=== PATIENT | male | born 1935 | race Caucasian/White ===

== ENCOUNTER 2016-12-24 05:10 | Day surgery (SDC) | payer MEDICARE, OTHER ==
[2016-12-06 10:28] LABS: HEMATOCRIT 33.2 % (37.9-51.0); HEMOGLOBIN 11.5 g/dL (13.5-17.0); HGB HCT DIFFERENCE 1.3; MEAN CORPUSCULAR HEMOGLOBIN 34.7 pg (27.0-33.4); MEAN CORPUSCULAR HGB CONC 34.5 g/dL (32.0-36.0); MEAN CORPUSCULAR VOLUME 101 fl (80-97); WHITE BLOOD COUNT 9.9 10^3/uL (4.0-10.5)
[2016-12-06 10:54] LABS: BLOOD UREA NITROGEN 79 mg/dL (7-20); CALCIUM 7.8 mg/dL (8.4-10.2); CHLORIDE 99 mmol/L (98-107); CREATININE RESULT 9.76 mg/dL (0.52-1.25); GLUCOSE 82 mg/dL (75-110); POTASSIUM 4.5 mmol/L (3.6-5.0)
[2016-12-06 11:06] LABS: CARBON DIOXIDE 21 mmol/L (22-30)
[2016-12-06 11:07] LABS: ANION GAP 23 (5-19)
--- NOTE | 2016-12-06 11:59 | EKG REPORT ---
SEVERITY:- ABNORMAL ECG - SINUS RHYTHM NONSPECIFIC IVCD WITH LAD INFERIOR INFARCT, OLD ANTERIOR INFARCT, AGE INDETERMINATE : Confirmed by: Ramona José 06-Dec-2016 11:58:29
[~2016-12-24 05:10] MED LIST: ACETAMINOPHEN 325 MG TABLET PO PRN; CEFAZOLIN 1 GM/D5W RTU 1 GM/50 ML RTUPB IV PRN; CEFAZOLIN SODIUM 1 GM in DEXTROSE 5%-WATER 50 ML IV PRN; LIDOCAINE 0.5% INJ-PF (5 MG/ML) 50 ML SDV SUBCUT PRN; NORMAL SALINE 1000 ML (RENAL PATIENTS) IV PRN
[2016-12-24] MEDS ORDERED: CEFAZOLIN INJ 1 GM VIAL ONE (05:30)
[2016-12-24 06:09] LABS: POTASSIUM 4.7 mmol/L (3.6-5.0)
[2016-12-24] MEDS ORDERED: BUPIVACAINE HCL 0.25 % INJ/PF (2.5 MG/1 ML) 30 ML VIAL ONE (06:27)
[2016-12-24] MEDS ORDERED: PROPOFOL INJ 200 MG/20 ML VIAL IV ONE (06:54)
[2016-12-24] MEDS ORDERED: MIDAZOLAM 2 MG/2 ML INJ ONE (06:54)
[2016-12-24] MEDS ORDERED: FENTANYL CITRATE INJ/PF 100 MCG/2 ML AMPUL ONE (06:54)
[2016-12-24] MEDS ORDERED: EPHEDRINE SULFATE INJ 50 MG/1 ML AMPULE ONE (06:54)
[2016-12-24] MEDS ORDERED: MEPERIDINE HCL/PF INJ 25 MG/1 ML DISP.SYRIN IV PRN (08:00)
[2016-12-24] MEDS ORDERED: PROMETHAZINE HCL INJ 25 MG/1 ML VIAL IV PRN ×2 (08:00)
[2016-12-24] MEDS ORDERED: ONDANSETRON HCL INJ/PF 4 MG/2 ML SDV IV PRN ×2 (08:00→09:31)
[2016-12-24] MEDS ORDERED: MORPHINE SULFATE 10 MG/ML INJ IV PRN (08:00)
[2016-12-24] MEDS ORDERED: FENTANYL CITRATE INJ/PF 100 MCG/2 ML AMPUL IV PRN ×3 (08:00)
[2016-12-24] MEDS ORDERED: DIPHENHYDRAMINE HCL 50 MG/ML VIAL IV PRN (08:00)
[2016-12-24] MEDS ORDERED: OXYCODONE-ACETAMINOPHEN 5-325 MG TABLET PO PRN ×3 (08:00→09:31)
--- NOTE | 2016-12-24 09:30 | Operative Report ---
Operative Report DATE OF SURGERY: 12/24/16 PREOPERATIVE DIAGNOSIS: Right Inguinal hernia POSTOPERATIVE DIAGNOSIS: Right inguinal hernia OPERATION: Right inguinal hernia repair with mesh SURGEON: CESIA JENKINS ANESTHESIA: GA TISSUE REMOVED OR ALTERED: Hernia sac and cord lipoma COMPLICATIONS: None ESTIMATED BLOOD LOSS: minimal INTRAOPERATIVE FINDINGS: Right indirect inguinal hernia PROCEDURE: Informed consent was obtained. Patient was brought to the operating room and placed on the operating room table in the supine position. After satisfactory induction of general anesthesia patient's right groin was prepped and draped in usual sterile fashion. A transverse right groin incision was made and dissection was carried down thru the subcutaneous tissue and the external oblique was opened along its fascial fibers thus opening the external inguinal ring. The cord was mobilized at the pubic tubercle. Dissection at the anterior aspect of the cord revealed an indirect inguinal hernia sac. The hernia sac was dissected to the level of the internal ring. It was opened to ensure there were no incarcerated contents. High ligation of the sac was then performed and the sac was excised. There was an associated cord lipoma which was also taken by clamping dividing and tying. Great care was taken to avoid injury to the cord structures. The ilioinguinal nerve and iliohypogastric nerves were identified and preserved during the dissection. Mesh repair was then performed with Covidien Pro teacher mesh which was the laid with sling ends brought back together in a sling-like configuration thus re-creating the internal inguinal ring and allowing the egress of the cord structures. The mesh laid flat with excellent coverage. a single fixation suture was placed at the pubic tubercle. Hemostasis appeared excellent. Marcaine was injected at the operative site. External oblique was closed over the repair and the cord structures using running Vicryl suture. Nelda's fascia was closed with interrupted Vicryl sutures. Skin was closed with subcuticular running Monocryl suture. Patient tolerated procedure well with no apparent complications and was taken to the recovery area in stable condition.
[2016-12-24] MEDS ORDERED: RINGERS SOLUTION,LACTATED 1,000 ML IV PRN (09:31)
--- NOTE | 2016-12-24 09:50 | PDOC DISCHARGE SUMMARY ---
Discharge Summary (SDC) - Discharge Final Diagnosis: Right inguinal hernia Date of Surgery: 12/24/16 Discharge Date: 12/24/16 Condition: Good Forms: ASU Anesthesia D/C Instruction, Discharge POC-Surgical Service Treatment or Instructions: Right inguinal hernia repair with mesh. May discharge patient home when met discharge criteria. Stay active at home but avoid strenuous activity. May shower in 2 days. Keep Steri-Strips on. Follow-up with me in 2 weeks. Prescriptions: Oxycodone HCl/Acetaminophen [Percocet 7.5-325 Mg Tablet] 1 each PO Q4HP PRN #30 tablet PRN Reason: For Pain Referrals: CESIA JENKINS MD [ACTIVE STAFF] - Discharge Diet: As Tolerated Discharge Activity: Activity As Tolerated - Stay active but avoid strenuous activity. Report the Following to Your Physician Immediately: Fever over 101 Degrees, Unusual Bleeding, Redness, Drainage-Foul Smelling
[2016-12-24] MEDS ORDERED: SUCCINYLCHOLINE CHLORIDE INJ 200 MG/10 ML VIAL ONE (10:23)
[2016-12-24] MEDS ORDERED: METOCLOPRAMIDE HCL INJ/PF 10 MG/2 ML SDV ONE (10:23)
[2016-12-24] MEDS ORDERED: DEXAMETHASONE SOD PHOSPHATE INJ 4 MG/1 ML VIAL ONE (10:23)
[2016-12-24] MEDS ORDERED: LIDOCAINE 2% INJ-PF (20 MG/ML) 10 ML AMPUL ONE (10:23)
[2016-12-24] MEDS ORDERED: GLYCOPYRROLATE INJ 0.4 MG/2 ML VIAL ONE (10:23)
[2016-12-24] MEDS ORDERED: ONDANSETRON HCL INJ/PF 4 MG/2 ML SDV ONE (10:23)
[2016-12-24 11:21] VITALS: BP 141/68
== END 2016-12-24 11:05 | disposition home or self-care (01) ==
LOC: OROUT 05:10
PROVIDERS: ATTEND Surgery
PROC: 0YU50JZ Supplement Right Inguinal Region with Synthetic Substitute, Open Approach (ICD-10-PCS; principal; 2016-12-24 07:30)
DX: K40.90 Unilateral inguinal hernia, without obstruction or gangrene, not specified as recurrent (principal); D17.6 Benign lipomatous neoplasm of spermatic cord; E11.9 Type 2 diabetes mellitus without complications; I12.0 Hypertensive chronic kidney disease with stage 5 chronic kidney disease or end stage renal disease; Z96.653 Presence of artificial knee joint, bilateral; K21.9 Gastro-esophageal reflux disease without esophagitis; I25.2 Old myocardial infarction; Z95.1 Presence of aortocoronary bypass graft; Z79.899 Other long term (current) drug therapy
CPT/HCPCS: 93005; 36415 ×2; 82947; 84132; 85027; 80048; 88304 ×2; 93010; 49505; C1781; J2250; J0690; J1100; J3010; J2765; J0330; J2405; J2704; J3490; 830

== ENCOUNTER 2017-08-22 08:19 | Day surgery (SDC) | payer MEDICARE, OTHER ==
[2017-08-22 09:02] LABS: ABSOLUTE BASOPHILS # (AUTO) 0.1 10^3/uL (0.0-0.2); ABSOLUTE EOSINOPHILS # (AUTO) 0.4 10^3/uL (0.0-0.6); ABSOLUTE LYMPHOCYTES (AUTO) 2.1 10^3/uL (0.5-4.7); ABSOLUTE MONOCYTES (AUTO) 1.3 10^3/uL (0.1-1.4); ABSOLUTE NEUT (AUTO) 5.1 10^3/uL (1.7-8.2); BASOPHILS % (AUTO) 0.7 % (0-2); EOSINOPHILS % (AUTO) 4.1 % (0-6); HEMATOCRIT 32.7 % (37.9-51.0); HEMOGLOBIN 11.3 g/dL (13.5-17.0); HGB HCT DIFFERENCE 1.2; LYMPHOCYTES % (AUTO) 23.5 % (13-45); MEAN CORPUSCULAR HEMOGLOBIN 35.6 pg (27.0-33.4); MEAN CORPUSCULAR HGB CONC 34.5 g/dL (32.0-36.0); MEAN CORPUSCULAR VOLUME 103 fl (80-97); MONOCYTES % (AUTO) 14.8 % (3-13); RED BLOOD COUNT 3.18 10^6/uL (4.35-5.55); RED CELL DISTRIBUTION WIDTH 14.6 % (11.5-14.0); SEGMENTED NEUTROPHILS % (AUTO) 56.9 % (42-78)
[2017-08-22] MEDS ORDERED: OXYCODONE-ACETAMINOPHEN 5-325 MG TABLET ONE (09:08)
[2017-08-22] MEDS ORDERED: DIAZEPAM 5 MG TABLET ONE (09:08)
[2017-08-22 09:19] LABS: ANION GAP 15 (5-19); BLOOD UREA NITROGEN 55 mg/dL (7-20); CALCIUM 8.8 mg/dL (8.4-10.2); CARBON DIOXIDE 26 mmol/L (22-30); CHLORIDE 103 mmol/L (98-107); CREATININE RESULT 7.56 mg/dL (0.52-1.25); GLUCOSE 99 mg/dL (75-110); POTASSIUM 4.4 mmol/L (3.6-5.0); SODIUM 143.9 mmol/L (137-145)
[2017-08-22] MEDS ORDERED: MIDAZOLAM 2 MG/2 ML INJ ONE (10:21)
[2017-08-22] MEDS ORDERED: FENTANYL CITRATE INJ/PF 100 MCG/2 ML AMPUL ONE (10:21)
[2017-08-22] MEDS ORDERED: HEPARIN SOD (PORCINE) 5,000 UNIT/ML 1 ML SYRINGE ONE (10:21)
[2017-08-22] MEDS ORDERED: LIDOCAINE 0.5% INJ-PF (5 MG/ML) 50 ML SDV ONE (10:22)
--- NOTE | 2017-08-22 10:27 | PDOC H&P ---
General Chief Complaint: The patient was referred across for decreased and decreasing flow volumes in his right arm arteriovenous fistula. Radiocephalic. - Diagnosis (1) Dialysis AV fistula malfunction Is this a Current Diagnosis?: Yes (2) Diabetes mellitus type 2 in nonobese Is this a Current Diagnosis?: Yes (3) Hypertension Is this a Current Diagnosis?: Yes - Current Medications/Allergies Home Medications: Atorvastatin Calcium 1 tab PO QHS 02/02/16 Finasteride [Proscar 5 mg Tablet] 5 mg PO DAILY 02/02/16 Allergies/Adverse Reactions: No Known Allergies Allergy (Verified 09/27/16 09:25) Past Medical History Cardiac Medical History: Reports: Coronary Artery Disease, Myocardial Infarction - 1992, Hyperlipidema, Hypertension Pulmonary Medical History: Denies: Asthma, Bronchitis, Chronic Obstructive Pulmonary Disease (COPD), Pneumonia Neurological Medical History: Denies: Seizures Renal/ Medical History: Reports: End Stage Renal Disease Musculoskeltal Medical History: Denies: Arthritis Psychiatric Medical History: Denies: Depression Hematology: Denies: Anemia Past Surgical History Past Surgical History: Reports: Orthopedic Surgery - bilateral knees Family History Family History: Reviewed & Not Pertinent Parental Family History Reviewed: No Children Family History Reviewed: No Sibling(s) Family History Reviewed.: No Social History Smoking Status: Former Smoker Frequency of Alcohol Use: None Hx Recreational Drug Use: No Hx Prescription Drug Abuse: No Physical Exam Vital Signs: Temp Pulse Resp BP Pulse Ox 98.3 F 66 20 164/74 H 98 08/22/17 08:54 08/22/17 08:54 08/22/17 08:54 08/22/17 08:54 08/22/17 08:54 Intake & Output 08/21/17 08/22/17 08/23/17 06:59 06:59 06:59 Weight 70.5 kg Additional comments: Constitutional: Well-developed well-nourished gentleman. No apparent acute distress. Eyes: Mucous membranes pink and moist, pupils equal and reactive to light. Conjunctiva normal. Cornea normal. ENT: Hearing grossly normal. External pinna normal to inspection. Teeth intact. Tongue normal to inspection. Cardiac: Heart sounds 1 and 2 normal, no murmurs. Respiratory breath sounds are present bilaterally, normal. Normal respiratory effort. Psychiatric: Judgment, memory, insight seem normal. Mood is pleasant and appropriate. Extremities: Upper extremities show normal range of movement. Pulses present noted to the radial arteries. Capillary refill normal. No cyanosis noted. No muscle wasting noted. Right forearm radiocephalic fistula noted. Probably area of stenosis noted about 4 cm from the anastomosis. Relatively hyper pulsatile proximal to this. L Impression/Plan Plan: The plan is for angiogram to be done and possible angioplasty. The goal is long -term maintenance of this patient's hemodialysis fistula. Procedure, its risks, benefits, expected outcome and alternatives are familiar to the patient. He wishes to proceed.
--- NOTE | 2017-08-22 12:09 | PDOC DISCHARGE SUMMARY ---
Discharge Summary (SDC) - Discharge Final Diagnosis: #1 malfunctioning arteriovenous fistula right radiocephalic. 2. End-stage renal disease on hemodialysis. 3. Coronary artery disease. 4. Diabetes mellitus type 2. 5. Hypertension. Date of Surgery: 08/22/17 Discharge Date: 08/22/17 Condition: Fair Treatment or Instructions: Discharge home [after recovery per ASU criteria]. Diet , [renal],as tolerated, when fully awake advance as tolerated. Activities within moderation encouraged. Follow up in my office by appointment in about 1 month. Call for appointment. Leave wounds [covered], [keep clean and dry, until hemodialysis]., ]. May shower [in 48 hrs], [try to keep operated area as dry as possibleUntil then] . Referrals: CHERRY HENRY MD [ACTIVE STAFF] - Discharge Diet: Other (Comments) - ADA Respiratory Treatments at Home: Deep Breathing/Coughing Discharge Activity: Activity As Tolerated Report the Following to Your Physician Immediately: Shortness of Breath, Unusual Bleeding
--- NOTE | 2017-08-22 12:14 | Operative Report ---
Operative Report DATE OF SURGERY: 08/22/17 PREOPERATIVE DIAGNOSIS: #1 malfunctioning arteriovenous fistula. 2. End-stage renal disease on hemodialysis. 3. Diabetes mellitus type 2. 4. Peripheral vascular disease. 5. Hypertension. POSTOPERATIVE DIAGNOSIS: #1 malfunctioning arteriovenous fistula. Post angioplasty. 2. End-stage renal disease on hemodialysis. 3. Diabetes mellitus type 2. 4. Peripheral vascular disease. 5. Hypertension. OPERATION: 1. Needle introduction regarding the arteriovenous fistula. 2. Angioplasty in arteriovenous fistula. 3. Angiogram and interpretation. SURGEON: CHERRY HYLTON RADIOLOGIST PHYSICIAN: None ANESTHESIA: Moderate Sedation TISSUE REMOVED OR ALTERED: Not applicable COMPLICATIONS: None ESTIMATED BLOOD LOSS: 2 mL. INTRAOPERATIVE FINDINGS: Of a short segment stenosis at the distal portion of the arteriovenous anastomosis estimated to be 40% of movement. Of multiple areas of stenosis between about 2-6 cm. Maximum rate 80% of the adjacent lumen. These lesions were resolved completely with angioplasty. In addition of the chitina radial artery distally was dilated slightly. Overall the flow in the fistula seem improved postprocedure with a more pulsatile mid segment. The outflow seems excellent with no problems at least up to the upper cephalic. PROCEDURE: PROCEDURE: After verifying the procedure and having obtained informed consent, the patient's right arm and forearm were prepared with Chlorhexidine and draped out with sterile linen. Local anesthesia infiltrated. Percutaneous access into the fistula ,[retrograde], obtained about [20 cm] from the arteriovenous anastomosis using a micro puncture needle followed by micro puncture wire and then a micro puncture catheter. findings. Angioplasty was elected. A 0.035 [place] wire was inserted, and over this, a 6 [place] short introducer was placed, this was followed by a Kumpe catheter which is used to perform proximal angiogram. It was decided to insert a 5 mm angioplasty balloon . Angioplasty was now doneover the anastomotic and perianastomotic segment initially at the anastomosis and then more distally in the fistula. This was done using a 3 mils syringe sustained for 2 minutes. Angiogram demonstrated successful outcome. The instrumentation was now withdrawn over hand-held pressure for 10 minutes. Dressings applied, procedure concluded. Exposure time: 1.9 minutes Radiation: 1.44 mg per centimeter squared Contrast: 25 mL of Isovue-M 300 low osmolality. DICTATING PHYSICIAN: CHERRY HENRY M.D. cc: CHERRY HENRY M.D. ([id number]) >>
[2017-08-22 12:39] VITALS: BP 160/55
--- NOTE | 2017-08-22 16:22 | RADIOLOGY REPORT (SQ) ---
EXAM DESCRIPTION: FISTULAGRAM W/PLASTY COMPLETED DATE/TIME: 08/22/2017 2:12 pm REASON FOR STUDY: T82.858A T82.858A STENOSIS OF OTHER VASCULAR PROSTH DEV/GRFT, INIT N18.6 END STA GE RENAL DISEASE COMPARISON: 05/10/2016 FLUOROSCOPY TIME: 1.9 minutes Multiple cine images saved to PACS. TECHNIQUE: Intra-operative images acquired during surgical procedure to evaluate progress. NUMBER OF IMAGES: Cine fluoroscopic images. LIMITATIONS: None. FINDINGS: Imaging in fluoroscopy during upper extremity dialysis access evaluation and plasty by Dr. Estrella . Please refer to the operative report for further details. IMPRESSION: INTRA PROCEDURAL IMAGING ABOVE . COMMENT: Quality ID [id number]: Final reports for procedures using fluoroscopy that document radiation exp osure indices, or exposure time and number of fluorographic images (if radiation exposure indices are not available) Please consult full operative report of the attending physician for description of the procedure. TECHNICAL DOCUMENTATION: JOB ID: [id number] [employer]- All Rights Reserved
== END 2017-08-22 12:29 | disposition home or self-care (01) ==
LOC: SC 08:19
PROVIDERS: ATTEND Surgery
PROC: 057D3DZ Dilation of Right Cephalic Vein with Intraluminal Device, Percutaneous Approach (ICD-10-PCS; principal; 2017-08-22)
DX: T82.858A Stenosis of other vascular prosthetic devices, implants and grafts, initial encounter (principal); Y83.2 Surgical operation with anastomosis, bypass or graft as the cause of abnormal reaction of the patient, or of later complication, without mention of misadventure at the time of the procedure; I12.0 Hypertensive chronic kidney disease with stage 5 chronic kidney disease or end stage renal disease; E11.22 Type 2 diabetes mellitus with diabetic chronic kidney disease; Z99.2 Dependence on renal dialysis; I25.10 Atherosclerotic heart disease of native coronary artery without angina pectoris; E78.5 Hyperlipidemia, unspecified; I25.2 Old myocardial infarction; Z87.891 Personal history of nicotine dependence; Z79.899 Other long term (current) drug therapy
CPT/HCPCS: 36415; 85025; 80048; 36902; C1725; C1887; Q9967; C1769; J1644 ×2; A9270 ×2; J3490; J2250; J3010

== ENCOUNTER 2017-10-31 06:14 | Day surgery (SDC) | payer MEDICARE, OTHER ==
[~2017-10-31 06:14] MED LIST changes: -ACETAMINOPHEN 325 MG TABLET PO PRN; -CEFAZOLIN 1 GM/D5W RTU 1 GM/50 ML RTUPB IV PRN; -CEFAZOLIN SODIUM 1 GM in DEXTROSE 5%-WATER 50 ML IV PRN; +DIAZEPAM 5 MG TABLET PO PRN; -LIDOCAINE 0.5% INJ-PF (5 MG/ML) 50 ML SDV SUBCUT PRN; -NORMAL SALINE 1000 ML (RENAL PATIENTS) IV PRN; +OXYCODONE-ACETAMINOPHEN 5-325 MG TABLET PO PRN
[2017-10-31 07:00] LABS: ABSOLUTE BASOPHILS # (AUTO) 0.1 10^3/uL (0.0-0.2); ABSOLUTE EOSINOPHILS # (AUTO) 0.2 10^3/uL (0.0-0.6); ABSOLUTE LYMPHOCYTES (AUTO) 2.2 10^3/uL (0.5-4.7); ABSOLUTE MONOCYTES (AUTO) 1.5 10^3/uL (0.1-1.4); ABSOLUTE NEUT (AUTO) 4.7 10^3/uL (1.7-8.2); BASOPHILS % (AUTO) 0.8 % (0-2); EOSINOPHILS % (AUTO) 2.8 % (0-6); HEMATOCRIT 35.7 % (37.9-51.0); HGB HCT DIFFERENCE 0.3; LYMPHOCYTES % (AUTO) 25.7 % (13-45); MEAN CORPUSCULAR HEMOGLOBIN 34.8 pg (27.0-33.4); MEAN CORPUSCULAR HGB CONC 33.8 g/dL (32.0-36.0); MEAN CORPUSCULAR VOLUME 103 fl (80-97); MONOCYTES % (AUTO) 17.2 % (3-13); RED BLOOD COUNT 3.46 10^6/uL (4.35-5.55); RED CELL DISTRIBUTION WIDTH 13.6 % (11.5-14.0); SEGMENTED NEUTROPHILS % (AUTO) 53.5 % (42-78); WHITE BLOOD COUNT 8.7 10^3/uL (4.0-10.5)
[2017-10-31 07:07] LABS: ANION GAP 16 (5-19); BLOOD UREA NITROGEN 73 mg/dL (7-20); CALCIUM 8.5 mg/dL (8.4-10.2); CARBON DIOXIDE 25 mmol/L (22-30); CHLORIDE 105 mmol/L (98-107); CREATININE RESULT 8.51 mg/dL (0.52-1.25); GLUCOSE 90 mg/dL (75-110); POTASSIUM 5.4 mmol/L (3.6-5.0); SODIUM 146.4 mmol/L (137-145)
[2017-10-31] MEDS ORDERED: LIDOCAINE 0.5% INJ-PF (5 MG/ML) 50 ML SDV ONE (07:35)
[2017-10-31] MEDS ORDERED: MIDAZOLAM 2 MG/2 ML INJ ONE (07:36)
[2017-10-31] MEDS ORDERED: FENTANYL CITRATE INJ/PF 100 MCG/2 ML AMPUL ONE (07:36)
[2017-10-31] MEDS ORDERED: HEPARIN SOD (PORCINE) 5,000 UNIT/ML 1 ML SYRINGE ONE (07:36)
--- NOTE | 2017-10-31 07:58 | PDOC H&P ---
General Chief Complaint: The patient is referred in for angiogram and improvement in AV fistula. - Diagnosis (1) Dialysis AV fistula malfunction Is this a Current Diagnosis?: Yes (2) Coronary artery disease Is this a Current Diagnosis?: Yes (3) Diabetes mellitus type 2 in nonobese Is this a Current Diagnosis?: Yes (4) ESRD on hemodialysis Is this a Current Diagnosis?: Yes (5) Hypertension Is this a Current Diagnosis?: Yes - Current Medications/Allergies Home Medications: Atorvastatin Calcium 1 tab PO QHS 02/02/16 Finasteride [Proscar 5 mg Tablet] 5 mg PO DAILY 02/02/16 Amlodipine Besylate 5 mg PO DAILY 10/31/17 Metoprolol Succinate [Toprol Xl] 25 mg PO 10/31/17 Omeprazole 40 mg PO 10/31/17 Ondansetron [Ondansetron Odt] 4 mg PO 10/31/17 Allergies/Adverse Reactions: No Known Allergies Allergy (Verified 09/27/16 09:25) Past Medical History Cardiac Medical History: Reports: Coronary Artery Disease, Myocardial Infarction - 1992, Hyperlipidema, Hypertension Pulmonary Medical History: Denies: Asthma, Bronchitis, Chronic Obstructive Pulmonary Disease (COPD), Pneumonia Neurological Medical History: Denies: Seizures Renal/ Medical History: Reports: End Stage Renal Disease Musculoskeltal Medical History: Denies: Arthritis Psychiatric Medical History: Denies: Depression Hematology: Denies: Anemia Past Surgical History Past Surgical History: Reports: Orthopedic Surgery - bilateral knees Family History Family History: Reviewed & Not Pertinent Parental Family History Reviewed: No Children Family History Reviewed: No Sibling(s) Family History Reviewed.: No Social History Smoking Status: Former Smoker Frequency of Alcohol Use: None Hx Recreational Drug Use: No Hx Prescription Drug Abuse: No Physical Exam Vital Signs: Temp Pulse Resp BP Pulse Ox 98.3 F 62 16 163/71 H 100 10/31/17 06:20 10/31/17 06:20 10/31/17 06:20 10/31/17 06:20 10/31/17 06:20 Intake & Output 10/30/17 10/31/17 11/01/17 06:59 06:59 06:59 Weight 74.389 kg Additional comments: Constitutional: Well-developed well-nourished gentleman. No apparent acute distress. Eyes: Mucous membranes pink and moist, pupils equal and reactive to light. Conjunctiva normal. Cornea normal. ENT: Hearing grossly normal. External pinna normal to inspection. Teeth intact. Tongue normal to inspection. Cardiac: Heart sounds 1 and 2 normal. Respiratory breath sounds are present bilaterally, normal. Normal respiratory effort. Skin: Normal to inspection. No ulcers, normal turgor. Psychiatric: Judgment, memory, insight seem normal. Mood is pleasant and appropriate. Extremities: Upper extremities show normal range of movement. Pulses present noted to the radial arteries. Capillary refill normal. No cyanosis noted. No muscle wasting noted. Right-sided radiocephalic fistula in place. Normal bruit. Suggestion of stenosis about 3 cm from the anastomosis based on proximal hyper pulsatility. . Impression/Plan Plan: In this patient with malfunction of his AV fistula probably a retrograde approach with the hope of improving inflow is indicated. The procedure, its risks, benefits, expected outcome and alternatives are familiar to the patient and he wishes to proceed.
--- NOTE | 2017-10-31 09:26 | PDOC DISCHARGE SUMMARY ---
Discharge Summary (SDC) - Discharge Final Diagnosis: #1 malfunctioning arteriovenous fistula, right radiocephalic. 2. End-stage renal disease on hemodialysis. 3. Coronary artery disease. 4. Diabetes mellitus type 2. 5. Hypertension. Date of Surgery: 10/31/17 Discharge Date: 10/31/17 Condition: Good Treatment or Instructions: Discharge home [after recovery per ASU criteria]. Diet , [renal],as tolerated, when fully awake advance as tolerated. Activities within moderation encouraged. Follow up in my office by appointment in about 1month. Call for appointment. Leave wounds [covered], [keep clean and dry, until hemodyalisis]. Hold of on school/work [until evaluation in office]. meds per med rec. May shower [in 48 hrs], [try to keep operated area as dry as possible] .Discharge home [after recovery per ASU criteria]. Referrals: MIGUEL FRAZIER MD [Primary Care Provider] - Discharge Diet: Other (Comments) - renal Respiratory Treatments at Home: Deep Breathing/Coughing Discharge Activity: Activity As Tolerated Report the Following to Your Physician Immediately: Shortness of Breath, Unusual Bleeding
[2017-10-31] MEDS ORDERED: NORMAL SALINE 1000 ML 1,000 ML IV PRN (09:40)
--- NOTE | 2017-10-31 10:49 | RADIOLOGY REPORT (SQ) ---
EXAM DESCRIPTION: FISTULAGRAM W/PLASTY COMPLETED DATE/TIME: 10/31/2017 9:25 am REASON FOR STUDY: T82.858A T82.858A STENOSIS OF OTHER VASCULAR PROSTH DEV/GRFT, INIT Z79.899 OTHER CUSTODIAL (CURRENT) DRUG THERAPY COMPARISON: None. FLUOROSCOPY TIME: 1.7 minutes 11 images saved to PACS. TECHNIQUE: Intra-operative images acquired during surgical procedure to evaluate progress. NUMBER OF IMAGES: 11 LIMITATIONS: None. FINDINGS: Balloon catheter overlies forearm. IMPRESSION: IMAGE(S) OBTAINED DURING PROCEDURE. COMMENT: Quality ID [id number]: Final reports for procedures using fluoroscopy that document radiation exp osure indices, or exposure time and number of fluorographic images (if radiation exposure indices are not available) Please consult full operative report of the attending physician for description of the procedure. TECHNICAL DOCUMENTATION: JOB ID: [id number] [employer]- All Rights Reserved
[2017-10-31 10:57] VITALS: BP 173/78
--- NOTE | 2017-10-31 11:39 | Operative Report ---
Operative Report DATE OF SURGERY: 10/31/17 PREOPERATIVE DIAGNOSIS: #1 malfunctioning arteriovenous fistula, right radiocephalic. 2. End-stage renal disease on hemodialysis. 3. Coronary artery disease. 4. Diabetes mellitus type 2. 5. Hypertension. POSTOPERATIVE DIAGNOSIS: #1 malfunctioning arteriovenous fistula, right radiocephalic. 2. End-stage renal disease on hemodialysis. 3. Coronary artery disease. 4. Diabetes mellitus type 2. 5. Hypertension. OPERATION: 1. Needle access into fistula. 2. Fistula angioplasty. 3. Angiogram and interpretation. SURGEON: CHERRY HYLTON TUBE AND ROD STRAIGHTENER: None ANESTHESIA: Moderate Sedation TISSUE REMOVED OR ALTERED: Not applicable. COMPLICATIONS: None ESTIMATED BLOOD LOSS: 2 mL. INTRAOPERATIVE FINDINGS: Of a well founded right radiocephalic fistula. Somewhat hyper pulsatile in the first 3 cm suggestive of cephalad stenosis. Angiogram showed irregularity and stenosis of the first centimeters of the fistula. The anastomosis itself looks fine. Angioplasty resulted in improvement in this area with smooth flow. The previous approximate 40% stenosis was eradicated. Outflow seems perfectly adequate through a robustly sized cephalic vein. Angioplasty done with a 5 mm angioplasty balloon. PROCEDURE: PROCEDURE: After verifying the procedure and having obtained informed consent, the patient's right arm and forearm were prepared with Chlorhexidine and draped out with sterile linen. Local anesthesia infiltrated. Percutaneous access into the fistula ,[retrograde], obtained about [20 cm] from the arteriovenous anastomosis using a micro puncture needle followed by micro puncture wire and then a micro puncture catheter. . A 0.035 [place] wire was inserted, and over this, a 6 [place] short introducer was placed, this was followed by a 5 mm angioplasty balloon . Angioplasty was now done at the radial artery just before the anastomosis and perianastomotic segment. This was done very carefully using a 3 mils syringe sustained for 2 minutes. Angiogram demonstrated successful outcome. Angioplasty was done slightly more cephalad and adjacent to the dilated area. Completion angiogram demonstrated [satisfactory result]. The instrumentation was now withdrawn over hand-held pressure for 10 minutes 1.7. Dressings applied , procedure concluded. Exposure time: 1.3 minutes Radiation: 3.74 yamilet per centimeter squared Contrast: 25 mL of Isovue-M 300 low osmolality. DICTATING PHYSICIAN: CHERRY HENRY M.D. cc: CHERRY HENRY M.D. ([id number]) >>
== END 2017-10-31 10:55 | disposition home or self-care (01) ==
LOC: CCL 06:14
PROVIDERS: ATTEND Surgery
PROC: 057D3DZ Dilation of Right Cephalic Vein with Intraluminal Device, Percutaneous Approach (ICD-10-PCS; principal; 2017-10-31)
DX: T82.858A Stenosis of other vascular prosthetic devices, implants and grafts, initial encounter (principal); I12.0 Hypertensive chronic kidney disease with stage 5 chronic kidney disease or end stage renal disease; E11.22 Type 2 diabetes mellitus with diabetic chronic kidney disease; N18.6 End stage renal disease; Y83.2 Surgical operation with anastomosis, bypass or graft as the cause of abnormal reaction of the patient, or of later complication, without mention of misadventure at the time of the procedure; Z99.2 Dependence on renal dialysis; I25.10 Atherosclerotic heart disease of native coronary artery without angina pectoris; E78.5 Hyperlipidemia, unspecified; Z79.899 Other long term (current) drug therapy; I25.2 Old myocardial infarction; Z87.891 Personal history of nicotine dependence
CPT/HCPCS: 36415; 85025; 80048; 36902; C1752; C1725; C1887; C1769; J2250; J1644 ×2; A9270 ×2; J3010; J3490

== ENCOUNTER → 2017-12-28 | Outpatient (CLI) | payer MEDICARE, OTHER ==
[2017-12-28 16:41] LABS: A TYPE INFLUENZA AG NEGATIVE (NEGATIVE); B INFLUENZA AG NEGATIVE (NEGATIVE)
== END ==
LOC: OD 15:52
PROVIDERS: ATTEND Internal Medicine
DX: J11.1 Influenza due to unidentified influenza virus with other respiratory manifestations (principal); R50.9 Fever, unspecified; C90.00 Multiple myeloma not having achieved remission
CPT/HCPCS: 87804

== ENCOUNTER 2018-01-16 06:17 | Day surgery (SDC) | payer MEDICARE, OTHER ==
[2018-01-16 07:24] LABS: HEMATOCRIT 36.4 % (37.9-51.0); HEMOGLOBIN 12.2 g/dL (13.5-17.0); MEAN CORPUSCULAR HEMOGLOBIN 34.3 pg (27.0-33.4); MEAN CORPUSCULAR HGB CONC 33.4 g/dL (32.0-36.0); MEAN CORPUSCULAR VOLUME 103 fl (80-97); PLATELET COUNT 126 10^3/uL (150-450); RED BLOOD COUNT 3.55 10^6/uL (4.35-5.55); RED CELL DISTRIBUTION WIDTH 16.4 % (11.5-14.0); WHITE BLOOD COUNT 7.6 10^3/uL (4.0-10.5)
[2018-01-16] MEDS ORDERED: FENTANYL CITRATE INJ/PF 100 MCG/2 ML AMPUL ONE (07:25)
[2018-01-16] MEDS ORDERED: LIDOCAINE 0.5% INJ-PF (5 MG/ML) 50 ML SDV ONE (07:25)
[2018-01-16] MEDS ORDERED: HEPARIN SOD (PORCINE) 5,000 UNIT/ML 1 ML SYRINGE ONE (07:25)
[2018-01-16] MEDS ORDERED: MIDAZOLAM 2 MG/2 ML INJ ONE (07:25)
[2018-01-16 07:45] LABS: ANION GAP 15 (5-19); BLOOD UREA NITROGEN 72 mg/dL (7-20); CALCIUM 8.8 mg/dL (8.4-10.2); CARBON DIOXIDE 22 mmol/L (22-30); CHLORIDE 104 mmol/L (98-107); GLUCOSE 99 mg/dL (75-110); POTASSIUM 5.2 mmol/L (3.6-5.0); SODIUM 140.9 mmol/L (137-145)
[2018-01-16 09:53] VITALS: BP 129/71
--- NOTE | 2018-01-16 10:02 | PDOC H&P ---
General Chief Complaint: The patient referred across for evaluation and angiogram of his right forearm fistula. - Current Medications/Allergies Home Medications: Atorvastatin Calcium 1 tab PO QHS 02/02/16 Finasteride [Proscar 5 mg Tablet] 5 mg PO DAILY 02/02/16 Amlodipine Besylate 5 mg PO DAILY 10/31/17 Metoprolol Succinate [Toprol Xl] 25 mg PO 10/31/17 Omeprazole 40 mg PO 10/31/17 Ondansetron [Ondansetron Odt] 4 mg PO 10/31/17 Calcium Acetate 667 mg PO TID 01/16/18 Calcium Carbonate [Tums] 2 tab.chew PO DAILY 01/16/18 Dexamethasone 4 mg PO 01/16/18 Finasteride 5 mg PO DAILY 01/16/18 Allergies/Adverse Reactions: No Known Allergies Allergy (Verified 09/27/16 09:25) Past Medical History Cardiac Medical History: Reports: Coronary Artery Disease, Myocardial Infarction - 1992, Hyperlipidema, Hypertension Pulmonary Medical History: Denies: Asthma, Bronchitis, Chronic Obstructive Pulmonary Disease (COPD), Pneumonia Neurological Medical History: Denies: Seizures Renal/ Medical History: Reports: End Stage Renal Disease Musculoskeltal Medical History: Denies: Arthritis Psychiatric Medical History: Denies: Depression Hematology: Denies: Anemia Past Surgical History Past Surgical History: Reports: Orthopedic Surgery - bilateral knees Family History Family History: Reviewed & Not Pertinent Parental Family History Reviewed: No Children Family History Reviewed: No Sibling(s) Family History Reviewed.: No Social History Smoking Status: Former Smoker Frequency of Alcohol Use: None Hx Recreational Drug Use: No Hx Prescription Drug Abuse: No Physical Exam Vital Signs: Temp Pulse Resp BP Pulse Ox 98.6 F 59 L 16 129/71 H 99 01/16/18 09:45 01/16/18 09:45 01/16/18 09:45 01/16/18 09:45 01/16/18 09:45 Additional comments: Constitutional: Well-developed well-nourished gentleman. No apparent acute distress. Eyes: Mucous membranes pink and moist, pupils equal and reactive to light. Conjunctiva normal. Cornea normal. ENT: Hearing grossly normal. External pinna normal to inspection. Teeth intact. Tongue normal to inspection. Cardiac: Heart sounds normal. Respiratory breath sounds are present bilaterally, normal. Normal respiratory effort. Psychiatric: Judgment, memory, insight seem normal. Mood is pleasant and appropriate. Extremities: Upper extremities show normal range of movement. Pulses present noted to the radial arteries. Capillary refill normal. No cyanosis noted. No muscle wasting noted. Right forearm AV fistula, slightly softer than is optimal. . Impression/Plan Plan: 4 fistula angiogram and angioplasty. The procedure, its risks, benefits, expected outcome and alternatives are familiar to the patient. He wishes to proceed.
--- NOTE | 2018-01-16 10:04 | PDOC DISCHARGE SUMMARY ---
Discharge Summary (SDC) - Discharge Final Diagnosis: #1 malfunctioning AV fistula, right radiocephalic. 2. End-stage renal disease on hemodialysis. 3. Diabetes mellitus type 2. 4. Coronary artery disease. 5. Hypertension. Date of Surgery: 01/16/18 Discharge Date: 01/16/18 Condition: Good Forms: Discharge POC-Surgical Service Treatment or Instructions: Discharge home [after recovery per ASU criteria]. Diet , [renal],as tolerated, when fully awake advance as tolerated. Activities within moderation encouraged. Follow up in my office by appointment in about [1 week]. Call for appointment. For fistula ultrasound. Leave wounds [covered], [keep clean and dry, until hemodialysis. Hold of on school/work [until evaluation in office]. Meds per med rec. May shower [in 48 hrs], [try to keep operated area as dry as possible]. Referrals: CHERRY HENRY MD [ACTIVE STAFF] - 01/25/18 8:30 am Discharge Diet: Other (Comments) - Renal. Respiratory Treatments at Home: Deep Breathing/Coughing Discharge Activity: Activity As Tolerated Home Care Assistance: None Needed Report the Following to Your Physician Immediately: Fever over 101 Degrees, Unusual Bleeding, Redness, Swelling, Warmth
--- NOTE | 2018-01-16 10:08 | RADIOLOGY REPORT (SQ) ---
EXAM DESCRIPTION: FISTULAGRAM COMPLETED DATE/TIME: 01/16/2018 9:21 am REASON FOR STUDY: T82.858A T82.858A STENOSIS OF OTHER VASCULAR PROSTH DEV/GRFT, INIT Z79.01 LONG T ERM (CURRENT) USE OF ANTICOAGULANTS COMPARISON: 10/31/2017 FLUOROSCOPY TIME: 9.7 minutes 8 series of digital images saved to PACS. TECHNIQUE: Intra-operative images acquired during surgical procedure to evaluate progress. NUMBER OF IMAGES: 8 series of digital images LIMITATIONS: None. FINDINGS: Imaging in fluoroscopy during right upper extremity dialysis access evaluation and plasty by Dr. Estrella . Please refer to the operative report for further details. IMPRESSION: INTRA PROCEDURAL IMAGING ABOVE . COMMENT: Quality ID [id number]: Final reports for procedures using fluoroscopy that document radiation exp osure indices, or exposure time and number of fluorographic images (if radiation exposure indices are not available) Please consult full operative report of the attending physician for description of the procedure. TECHNICAL DOCUMENTATION: JOB ID: [id number] [employer]- All Rights Reserved
--- NOTE | 2018-01-16 12:09 | Operative Report ---
Operative Report DATE OF SURGERY: 01/16/18 PREOPERATIVE DIAGNOSIS: 1. Malfunctioning AV fistula, right radiocephalic. 2. End-stage renal disease on hemodialysis. 3. Coronary artery disease. 4. Diabetes mellitus type 2. 5. Hypertension. POSTOPERATIVE DIAGNOSIS: 1. Malfunctioning AV fistula, right radiocephalic. 2. End-stage renal disease on hemodialysis. 3. Coronary artery disease. 4. Diabetes mellitus type 2. 5. Hypertension. OPERATION: 1. Needle introduction into fistula. 2. Angiogram. 3. Angiogram and interpretation. SURGEON: CHERRY HYLTON PROMOTIONAL MARKETING AGENT: None. ANESTHESIA: Moderate Sedation TISSUE REMOVED OR ALTERED: Not applicable. COMPLICATIONS: None. ESTIMATED BLOOD LOSS: 2 mL. INTRAOPERATIVE FINDINGS: Of a well founded right forearm radiocephalic fistula. Slightly softer than would be optimal. Angiogram demonstrates relative narrowing in the first 2 cm. Despite really diligent attempts at accessing the artery including use of a Kumpe catheter, 0.18 wire system it proved impossible to get into the artery. For this reason it was not possible to improve the inflow by angioplasty. Part of this is because of a distal branch of the vein into which the instrumentation preferentially goes. Improvement may need ligation of the retrograde portion of the fistula. This will be preceded by ultrasound which will be done in office. PROCEDURE: PROCEDURE: After verifying the procedure and having obtained informed consent, the patient's right arm and forearm were prepared with Chlorhexidine and draped out with sterile linen. Local anesthesia infiltrated. Percutaneous access into the fistula ,[retrograde], obtained about [20 cm] from the arteriovenous anastomosis using a micro puncture needle followed by micro puncture wire and then a micro puncture catheter. Angioplasty was elected. A 0.035 Hooker wire was inserted, and over this, a 6 Bengali short introducer was placed, this was followed by a Kumpe catheter. The Kumpe was introduced distally and angiograms done. The findings were as dictated. Several minutes were now spent in attempting to get into the arterial system. After about 7 minutes of fluoroscopy time this was abandoned. The plan is as above. The instrumentation was now withdrawn over pressure for 10 minutes. Dressings applied, procedure concluded. Exposure time: 9.7 minutes Radiation: 6.92 yamilet per centimeter squared Contrast: 25 mL of Isovue-M 300 low osmolality. DICTATING PHYSICIAN: CHERRY HENRY M.D. cc: CHERRY HENRY M.D. ([id number]) >>
== END 2018-01-16 09:45 | disposition home or self-care (01) ==
LOC: CCL 06:17
PROVIDERS: ATTEND Surgery
PROC: B30 Imaging, Upper Arteries, Plain Radiography (ICD-10-PCS; principal; 2018-01-16)
DX: T82.858A Stenosis of other vascular prosthetic devices, implants and grafts, initial encounter (principal); Z79.01 Long term (current) use of anticoagulants; I12.0 Hypertensive chronic kidney disease with stage 5 chronic kidney disease or end stage renal disease; N18.6 End stage renal disease; E11.22 Type 2 diabetes mellitus with diabetic chronic kidney disease; Z99.2 Dependence on renal dialysis; I25.10 Atherosclerotic heart disease of native coronary artery without angina pectoris; I25.2 Old myocardial infarction; Z79.899 Other long term (current) drug therapy; Z87.891 Personal history of nicotine dependence
CPT/HCPCS: 36901; 36415; 85027; 80048; C1752; C1887; C1769 ×2; Q9967; J1644 ×2; A9270 ×2; J3490; J2250; J3010

== ENCOUNTER → 2019-02-26 | Outpatient (CLI) | payer MEDICARE, OTHER ==
--- NOTE | 2019-02-26 16:35 | RADIOLOGY REPORT (SQ) ---
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 LIMITATIONS: None. FINDINGS: AP CHEST: Old sternotomy for CABG. Mild to moderate cardiomegaly. Increased interstitial markings at both lung bases. No lytic lesions over the skeletal structures of the chest LATERAL SKULL: No worrisome bone lesions. AP BOTH HUMERI: No worrisome bone lesions. TWO-VIEW LUMBAR SPINE: No worrisome bone lesions. TWO-VIEW THORACIC SPINE: No worrisome bone lesions. Chronic appearing 25% upper endplate compression at T11 TWO VIEW CERVICAL SPINE: Degenerative disc space loss of height at C5-6 AP PELVIS: No worrisome bone lesions. AP BOTH FEMURS: No worrisome bone lesions. OTHER: No other significant finding. IMPRESSION: NO WORRISOME BONE LESIONS. TECHNICAL DOCUMENTATION: JOB ID: [id number] [employer]- All Rights Reserved Reading location - IP/workstation name: [email or web address]
== END ==
LOC: RAD 13:22
PROVIDERS: ATTEND Internal Medicine
DX: C90.00 Multiple myeloma not having achieved remission (principal); I51.7 Cardiomegaly; Z95.1 Presence of aortocoronary bypass graft
CPT/HCPCS: 77075

== ENCOUNTER 2019-03-05 07:22 | Day surgery (SDC) | payer MEDICARE, OTHER ==
[2019-03-05 08:34] LABS: HEMATOCRIT 27.8 % (37.9-51.0); HEMOGLOBIN 9.4 g/dL (13.5-17.0); MEAN CORPUSCULAR HEMOGLOBIN 34.7 pg (27.0-33.4); MEAN CORPUSCULAR HGB CONC 33.6 g/dL (32.0-36.0); MEAN CORPUSCULAR VOLUME 103 fl (80-97); PLATELET COUNT 118 10^3/uL (150-450); RED CELL DISTRIBUTION WIDTH 17.2 % (11.5-14.0); WHITE BLOOD COUNT 5.9 10^3/uL (4.0-10.5)
[2019-03-05 08:45] LABS: ANION GAP 9 (5-19); BLOOD UREA NITROGEN 50 mg/dL (7-20); CALCIUM 9.1 mg/dL (8.4-10.2); CARBON DIOXIDE 27 mmol/L (22-30); CHLORIDE 107 mmol/L (98-107); GLUCOSE 110 mg/dL (75-110); POTASSIUM 4.1 mmol/L (3.6-5.0); SODIUM 143.4 mmol/L (137-145)
[2019-03-05] MEDS ORDERED: LIDOCAINE 0.5% INJ-PF (5 MG/ML) 50 ML SDV ONE (08:49)
[2019-03-05] MEDS ORDERED: MIDAZOLAM 2 MG/2 ML INJ ONE (08:52)
[2019-03-05] MEDS ORDERED: FENTANYL CITRATE INJ/PF 100 MCG/2 ML AMPUL ONE (08:53)
[2019-03-05] MEDS ORDERED: BACITRACIN INJ 50,000 UNIT VIAL ONE (08:53)
[2019-03-05] MEDS ORDERED: CEFAZOLIN INJ 1 GM VIAL ONE (09:25)
--- NOTE | 2019-03-05 10:33 | Discharge Summary ---
Discharge Summary (SDC) - Discharge Final Diagnosis: #1 multiple myeloma. 2. End-stage renal disease on hemodialysis. 3. Coronary artery disease. 4. Hypertension. Date of Surgery: 03/05/19 Discharge Date: 03/05/19 Condition: Fair Treatment or Instructions: Discharge home [after recovery per ASU criteria]. Diet , [renal],as tolerated, when fully awake advance as tolerated. Activities within moderation encouraged. Follow up in my office by appointment in about [1 week]. Call for appointment. Leave wounds [covered], [keep clean and dry, until office visit in 1 week]. Hold of on school/work [until evaluation in office]. Meds per med rec. Percocet. May shower [in 48 hrs], [try to keep operated area as dry as possible]. Referrals: MIGUEL FRAZIER MD [Primary Care Provider] - Discharge Diet: Other (Comments) - Renal. Respiratory Treatments at Home: Deep Breathing/Coughing Discharge Activity: Activity As Tolerated Report the Following to Your Physician Immediately: Shortness of Breath, Unusual Bleeding
--- NOTE | 2019-03-05 10:36 | Operative Report ---
Operative Report DATE OF SURGERY: 03/05/19 PREOPERATIVE DIAGNOSIS: #1 multiple myeloma. 2. End-stage renal disease on he modialysis. 3. Coronary artery disease. 4. Hypertension. POSTOPERATIVE DIAGNOSIS: #1 multiple myeloma. 2. End-stage renal disease on hemodialysis. 3. Coronary artery disease. 4. Hypertension. OPERATION: 1. Ultrasound evaluation and renal jugular vein. 2. Insertion of single-lumen Port-A-Cath via real-time access in the left internal jugular vein. 3. Angiogram and interpretation. SURGEON: CHERRY HYLTON HEARING CARE PROFESSIONAL: None. ANESTHESIA: Moderate Sedation TISSUE REMOVED OR ALTERED: Not applicable. COMPLICATIONS: None. ESTIMATED BLOOD LOSS: 5 mL. INTRAOPERATIVE FINDINGS: Of a satisfactory left internal jugular vein to support catheter. Tip of catheter at the lower end of the superior vena cava. Smooth flow of contrast through the superior vena cava and right atrium. Somewhat sluggish from the right atrium which may be enlarged. Final x-ray shows no obvious complication, satisfactory positioning of hardware. PROCEDURE: After obtaining informed consent, the patient was taken to the [facility] and positioned supine. The left neck and chest were prepared with chlorhexidine and draped out with sterile linen. After the " universal timeout", in which it was verified that the patient continued to receive antibiotic, the procedure commenced. A steriley sheathed ultrasound probe was used to evaluate the [right] internal jugular vein. Local anesthesia was infiltrated adjacent to the probe. Access into the left internal jugular vein was obtained using a micropuncture needle, followed by micropuncture wire and then a micropuncture catheter. This was followed by introduction of a 0.035 guidewire the tip of which was placed down into the inferior vena cava . The port sites was marked , locally anesthetized and incision made. Dissection now proceeded to the deep subcutaneous subcutaneous tissues so that a pocket for the port was made. Meticulous hemostasis was secured and the catheter was tunneled between the 2 incisions. Proximally, the catheter was now positioned using a peel-away sheath. Distally the catheter was tailored to an appropriate length and then mated to the port using the contained fixating device. The port was now placed in the pocket and the catheter optimally positioned. The port was accessed with a Cabello needle and an angiogram done under digital subtraction. The findings as dictated. With adequate and satisfactory positioning, both lumens of the chamber were irrigated with heparinized solution. The wounds were now closed using interrupted 3-0 PDS to the subcutaneous tissues and a continuous subcuticular suture of 4-0 Monocryl to the skin. These are reinforced with Steri-Strips over benzoin and then dressings applied. Time: 0.1 minute. Dose: 13.43 m Gy Contrast: 5 Mls. Isovue 300. Copies of the dictated operative report for Dr. Cherry Estrella MD.
[2019-03-05 12:09] VITALS: BP 175/85
--- NOTE | 2019-03-05 12:48 | RADIOLOGY REPORT (SQ) ---
EXAM DESCRIPTION: PORTACATH INSERTION; GUIDANCE FLUOROSCOPIC COMPLETED DATE/TIME: 03/05/2019 10:09 am REASON FOR STUDY: C90.00; C90.0 C90.00 MULTIPLE MYELOMA NOT HAVING ACHIEVED REMISSION COMPARISON: Skeletal survey 02/26/2019 FLUOROSCOPY TIME: 0.1 minutes 11 series of digital radiographic images saved to PACS. TECHNIQUE: Intra-operative images acquired during surgical procedure to evaluate progress. NUMBER OF IMAGES: 11 series of digital fluoroscopic images LIMITATIONS: None. FINDINGS: Intra procedural imaging and fluoro during placement of a left-sided permanent central jocelyn e with the tip in the superior vena cava. Please see the operative report for further details IMPRESSION: Intra procedural imaging and fluoro COMMENT: Quality ID 145: Final reports for procedures using fluoroscopy that document radiation exp osure indices, or exposure time and number of fluorographic images (if radiation exposure indices are not available) Please consult full operative report of the attending physician for description of the procedure. TECHNICAL DOCUMENTATION: JOB ID: [id number] [email or web address]- All Rights Reserved Reading location - IP/workstation name: [email or web address]
--- NOTE | 2019-03-05 12:48 | RADIOLOGY REPORT (SQ) ---
EXAM DESCRIPTION: PORTACATH INSERTION; GUIDANCE FLUOROSCOPIC COMPLETED DATE/TIME: 03/05/2019 10:09 am REASON FOR STUDY: C90.00; C90.0 C90.00 MULTIPLE MYELOMA NOT HAVING ACHIEVED REMISSION COMPARISON: Skeletal survey 02/26/2019 FLUOROSCOPY TIME: 0.1 minutes 11 series of digital radiographic images saved to PACS. TECHNIQUE: Intra-operative images acquired during surgical procedure to evaluate progress. NUMBER OF IMAGES: 11 series of digital fluoroscopic images LIMITATIONS: None. FINDINGS: Intra procedural imaging and fluoro during placement of a left-sided permanent central jocelyn e with the tip in the superior vena cava. Please see the operative report for further details IMPRESSION: Intra procedural imaging and fluoro COMMENT: Quality ID 145: Final reports for procedures using fluoroscopy that document radiation exp osure indices, or exposure time and number of fluorographic images (if radiation exposure indices are not available) Please consult full operative report of the attending physician for description of the procedure. TECHNICAL DOCUMENTATION: JOB ID: [id number] [employer]- All Rights Reserved Reading location - IP/workstation name: [email or web address]
== END 2019-03-05 11:45 | disposition home or self-care (01) ==
LOC: CCL 07:22
PROVIDERS: ATTEND Surgery
DX: C90.00 Multiple myeloma not having achieved remission (principal); E11.22 Type 2 diabetes mellitus with diabetic chronic kidney disease; I12.0 Hypertensive chronic kidney disease with stage 5 chronic kidney disease or end stage renal disease; N18.6 End stage renal disease; Z87.891 Personal history of nicotine dependence; Z79.899 Other long term (current) drug therapy; Z96.653 Presence of artificial knee joint, bilateral; I25.10 Atherosclerotic heart disease of native coronary artery without angina pectoris; Z99.2 Dependence on renal dialysis; Z95.1 Presence of aortocoronary bypass graft; Z01.818 Encounter for other preprocedural examination
CPT/HCPCS: 36415; 85027; 80048; 36561; 76937; 77001; C1788; Q9967; J2250; J3490 ×2; J0690; J3010; J1644

== ENCOUNTER → 2019-04-25 | Outpatient (CLI) | payer MEDICARE, OTHER ==
--- NOTE | 2019-04-25 14:43 | RADIOLOGY REPORT (SQ) ---
EXAM DESCRIPTION: VENOUS BILATERAL LOWER COMPLETED DATE/TIME: 04/25/2019 2:28 pm REASON FOR STUDY: SWELLING I82.403 ACUTE EMBOLISM AND THOMBOS UNSP DEEP VEINS OF LOW EX R60.0 LOCA LIZED EDEMA COMPARISON: None. TECHNIQUE: Dynamic and static bonilla scale and color images acquired of both lower extremity venous sy stems. Selected spectral images acquired with additional compression and augmentation maneuvers. Imag es stored on PACS. LIMITATIONS: None. FINDINGS: RIGHT LEG COMMON FEMORAL AND FEMORAL: Normal phasicity, compression and augmentation. No visualized echogenic m aterial on bonilla scale. No defects on color images. POPLITEAL: Normal compression and augmentation. No visualized echogenic material on bonilla scale. No de fects on color images. CALF VESSELS: Normal compression and augmentation. No visualized echogenic material on bonilla scale. No defects on color image. GSV AND SSV: Normal compression. No visualized echogenic material on bonilla scale. No defects on color images. ANY DEEP VENOUS INSUFFICIENCY: No reflux on Valsalva ANY EVIDENCE OF POPLITEAL CYST: No. OTHER: No other significant finding. LEFT LEG COMMON FEMORAL AND FEMORAL: Normal phasicity, compression and augmentation. No visualized echogenic m aterial on bonilla scale. No defects on color images. POPLITEAL: Normal compression and augmentation. No visualized echogenic material on bonilla scale. No de fects on color images. CALF VESSELS: Normal compression and augmentation. No visualized echogenic material on bonilla scale. No defects on color images. GSV AND SSV: Normal compression. No visualized echogenic material on bonilla scale. No defects on color images. ANY DEEP VENOUS INSUFFICIENCY: No reflux on Valsalva ANY EVIDENCE POPLITEAL CYST: No. OTHER: No other significant finding. IMPRESSION: NO EVIDENCE DVT OR SVT IN EITHER LEG. TECHNICAL DOCUMENTATION: JOB ID: [id number] [employer]- All Rights Reserved Reading location - IP/workstation name: [email or web address]
--- NOTE | 2019-04-25 16:00 | RADIOLOGY REPORT (SQ) ---
EXAM DESCRIPTION: CHEST 2 VIEWS COMPLETED DATE/TIME: 04/25/2019 3:10 pm REASON FOR STUDY: R60.0 LOCALIZED EDEMA COMPARISON: 06/16/2016 EXAM PARAMETERS: NUMBER OF VIEWS: two views TECHNIQUE: Digital Frontal and Lateral radiographic views of the chest acquired. RADIATION DOSE: NA LIMITATIONS: none FINDINGS: LUNGS AND PLEURA: Blunting of the left costophrenic angle with hazy retrocardiac opacity. No dense consolidation. Chronic additional interstitial changes, stable. No pneumothorax. MEDIASTINUM AND HILAR STRUCTURES: No masses or contour abnormalities. HEART AND VASCULAR STRUCTURES: Enlarged cardiac silhouette, stable. BONES: Median sternotomy changes. No acute findings. HARDWARE: Left internal jugular chest port with catheter tip at SVC. OTHER: No other significant finding. IMPRESSION: Hazy left basilar opacity, possibly atelectasis or infection with probable trace left ef fusion. TECHNICAL DOCUMENTATION: JOB ID: [id number] [employer]- All Rights Reserved Reading location - IP/workstation name: [email or web address]
== END ==
LOC: SP 13:32
PROVIDERS: ATTEND Family Medicine
DX: I82.403 Acute embolism and thrombosis of unspecified deep veins of lower extremity, bilateral (principal); R60.0 Localized edema
CPT/HCPCS: 71046; 93970

== ENCOUNTER 2019-04-27 11:17 | Emergency (ER) | payer MEDICARE, OTHER ==
--- NOTE | 2019-04-27 11:58 | ER Document Report ---
ED Medical Screen (RME) - General Chief Complaint: Blood Pressure Problem Stated Complaint: LOW BLOOD PRESSURE Time Seen by Provider: 04/27/19 11:53 Primary Care Provider: MIGUEL FRAZIER MD [Primary Care Provider] - Follow up as needed TRAVEL OUTSIDE OF THE [place] IN LAST 30 DAYS: No - HPI Notes: 04/27/19 11:56 Patient is an 83-year-old male with a history of hypertension, coronary artery disease with previous quadruple bypass, diabetes, multiple myeloma and on chemo, end-stage renal disease and on dialysis every Tuesday//Tuesday (last session yesterday) who presents per the direction of his oncologist office for having low blood pressure at their office today. Patient states that he had the chills and was noted to have blood pressure 90/60 at that time. Patient states that as soon as he got out in the sunlight his blood pressures normalized. He has been feeling well since then, but does have some shortness of breath over the past week. He is eating and drinking without difficulty. He is urinating normally. No other concerns or complaints at this time. Denies PRADHAN, fever, neck pain, URI, CP, Abd pain, dysuria, back pain, or rash. I have treated and performed a rapid initial assessment of this patient. A comprehensive ED assessment and evaluation of the patient, analysis of test results and completion of medical decision making process will be conducted by additional ED providers. PHYSICAL EXAMINATION: GENERAL: Well-appearing, well-nourished and in no acute distress. A&Ox4. Answers questions appropriately. LUNGS: Breath sounds clear to auscultation bilaterally and equal. No wheezes rales or rhonchi. HEART: Regular rate and rhythm Extremities: No cyanosis, clubbing, or edema b/l. NEUROLOGICAL: Normal speech, normal gait. PSYCH: Normal mood, normal affect. - Related Data Allergies/Adverse Reactions: No Known Allergies Allergy (Verified 04/27/19 11:22) Past Medical History - Past Medical History Cardiac Medical History: Reports: Hx Coronary Artery Disease - quad bypass, Hx Heart Attack - 1992, Hx Hypercholesterolemia, Hx Hypertension Pulmonary Medical History: Reports: Hx Asthma - As a child Denies: Hx Bronchitis, Hx COPD, Hx Pneumonia Neurological Medical History: Denies: Hx Cerebrovascular Accident, Hx Seizures Renal/ Medical History: Reports: Hx End Stage Renal Disease Musculoskeltal Medical History: Reports Hx Arthritis Psychiatric Medical History: Denies: Hx Depression Past Surgical History: Reports: Hx Cardiac Surgery - quad bypass, Hx Orthopedic Surgery - bilateral knees - Immunizations Hx Diphtheria, Pertussis, Tetanus Vaccination: Yes History of Influenza Vaccine for 08/2017 - 01/2018 Season: Yes Influenza Administration Date for 08/2017 - 01/2018 Season: 07/29/08 Physical Exam - Vital signs Vitals: Temp Pulse Resp BP Pulse Ox 98.5 F 78 17 138/75 H 93 04/27/19 11:29 04/27/19 11:29 04/27/19 11:29 04/27/19 11:29 04/27/19 11:29 Course - Vital Signs Vital signs: Temp Pulse Resp BP Pulse Ox 98.5 F 78 17 138/75 H 93 04/27/19 11:29 04/27/19 11:29 04/27/19 11:29 04/27/19 11:29 04/27/19 11:29 Doctor's Discharge - Discharge Referrals: MIGUEL FRAZIER MD [Primary Care Provider] - Follow up as needed
--- NOTE | 2019-04-27 12:38 | RADIOLOGY REPORT (SQ) ---
EXAM DESCRIPTION: CHEST SINGLE VIEW COMPLETED DATE/TIME: 04/27/2019 12:17 pm REASON FOR STUDY: sob COMPARISON: 04/25/2019 EXAM PARAMETERS: NUMBER OF VIEWS: One view. TECHNIQUE: Single frontal radiographic view of the chest acquired. RADIATION DOSE: NA LIMITATIONS: None. FINDINGS: LUNGS AND PLEURA: Mild, diffuse bilateral interstitial pulmonary opacity, unchanged from p rior. Small left pleural effusion unchanged. MEDIASTINUM AND HILAR STRUCTURES: No masses. Contour normal. HEART AND VASCULAR STRUCTURES: Cardiomegaly. BONES: No acute findings. HARDWARE: None in the chest. OTHER: Left chest port catheter. IMPRESSION: Cardiomegaly with unchanged mild, diffuse bilateral interstitial pulmonary opacity and s mall left pleural effusion. There is no new airspace opacity. TECHNICAL DOCUMENTATION: JOB ID: [id number] [employer]- All Rights Reserved Reading location - IP/workstation name: [email or web address]
[2019-04-27 15:48] LABS: ABSOLUTE LYMPHOCYTES (AUTO) 0.3 10^3/uL (0.5-4.7); ABSOLUTE MONOCYTES (AUTO) 0.3 10^3/uL (0.1-1.4); BASOPHILS % (AUTO) 0.3 % (0-2); EOSINOPHILS % (AUTO) 0.3 % (0-6); HEMATOCRIT 26.2 % (37.9-51.0); HEMOGLOBIN 8.7 g/dL (13.5-17.0); LYMPHOCYTES % (AUTO) 8.1 % (13-45); MEAN CORPUSCULAR HEMOGLOBIN 33.7 pg (27.0-33.4); MEAN CORPUSCULAR HGB CONC 33.4 g/dL (32.0-36.0); MEAN CORPUSCULAR VOLUME 101 fl (80-97); MONOCYTES % (AUTO) 9.6 % (3-13); RED BLOOD COUNT 2.59 10^6/uL (4.35-5.55); RED CELL DISTRIBUTION WIDTH 16.9 % (11.5-14.0); SEGMENTED NEUTROPHILS % (AUTO) 81.7 % (42-78); TOTAL CELLS COUNTED % (AUTO) 100 %; WHITE BLOOD COUNT 3.6 10^3/uL (4.0-10.5)
[2019-04-27 15:51] LABS: PLATELET COUNT 77 10^3/uL (150-450)
[2019-04-27 15:54] LABS: PROTHROMBIN TIME 14.8 SEC (11.4-15.4)
[2019-04-27 16:05] LABS: ALANINE AMINOTRANSFERASE 27 U/L (21-72); ALBUMIN 3.2 g/dL (3.5-5.0); ALKALINE PHOSPHATASE 84 U/L (38-126); ANION GAP 14 (5-19); ASPARTATE AMINO TRANSFERASE 15 U/L (17-59); BILIRUBIN,DIRECT 0.5 mg/dL (0.0-0.4); BILIRUBIN,TOTAL 0.9 mg/dL (0.2-1.3); BLOOD UREA NITROGEN 56 mg/dL (7-20); CALCIUM 8.6 mg/dL (8.4-10.2); CARBON DIOXIDE 25 mmol/L (22-30); CHLORIDE 103 mmol/L (98-107); GLUCOSE 225 mg/dL (75-110); POTASSIUM 4.1 mmol/L (3.6-5.0); SODIUM 141.5 mmol/L (137-145); TOTAL PROTEIN 5.6 g/dL (6.3-8.2)
[2019-04-27 16:18] LABS: APPEARANCE,URINE CLEAR; BILIRUBIN,URINE NEGATIVE (NEGATIVE); COLOR,URINE YELLOW; GLUCOSE, URINE 50 mg/dL (NEGATIVE); KETONES,URINE NEGATIVE (NEGATIVE); LEUKOCYTE ESTERASE,URINE NEGATIVE (NEGATIVE); NITRITE,URINE NEGATIVE (NEGATIVE); PROTEIN,URINE 100 mg/dL (NEGATIVE); UROBILINOGEN,URINE NEGATIVE mg/dL (<2.0)
[2019-04-27 16:21] LABS: TROPONIN I 0.084 ng/mL
--- NOTE | 2019-04-27 17:43 | ER Document Report ---
ED General - General Chief Complaint: Blood Pressure Problem Stated Complaint: LOW BLOOD PRESSURE Time Seen by Provider: 04/27/19 11:53 Primary Care Provider: MAGO BUTLER MD [ACTIVE STAFF] - Follow up in 3-5 days MIGUEL FRAZIER MD [Primary Care Provider] - Follow up in 3-5 days Notes: Patient is a 83-year-old male with multiple medical problems including active multiple myeloma undergoing treatment and end-stage renal disease on dialysis that presents to the emergency department for chief complaint of hypotension. Patient apparently was at chemotherapy session today receive dexamethasone and Benadryl, and shortly afterwards which having a shaking episode his blood pressure dropped, and appeared uncomfortable, shortly after this episode, he was taken outside and was feeling much better, at this time he states he feels quite well, denies any complaints. The oncology office was concerned because of the symptoms he had and wanted him to be formally evaluated with blood work to make sure that nothing else was going on. At this time the patient denies any complaints, denies chest pain, shortness of breath, difficulty breathing, nausea, vomiting, abdominal pain, dysuria, hematuria. He states he does urinate despite being on dialysis. Past Medical History: End-stage renal disease on dialysis, diabetes mellitus, multiple myeloma, hypertension, CAD Past Surgical History: CABG, permacath placement Social History: Denies tobacco, alcohol or drug use. Family History: Reviewed and noncontributory for presenting illness Allergies: Reviewed, see documented allergy list. REVIEW OF SYSTEMS: Other than noted above, the 12 point review of systems was reviewed with the patient and were negative, all pertinent findings are included in the HPI. PHYSICAL EXAMINATION: Vital signs reviewed, nursing noted reviewed. GENERAL: Elderly male, no acute distress HEAD: Atraumatic, normocephalic. EYES: Eyes appear normal, extraocular movements intact, sclera anicteric, conjunctiva are normal. ENT: nares patent, oropharynx clear without exudates. Moist mucous membranes. NECK: Normal range of motion, supple without lymphadenopathy LUNGS: Breath sounds clear to auscultation bilaterally and equal. No wheezes rales or rhonchi. Permacath noted in the left chest wall, no signs of infection, no erythema at the site. HEART: Regular rate and rhythm without murmurs ABDOMEN: Soft, nontender, normoactive bowel sounds. No rebound, guarding, or rigidity. No masses appreciated. EXTREMITIES: Bilateral lower extremity edema, 2+ to the ankles, right upper extremity AV fistula noted, positive bruit and thrill. NEUROLOGICAL: No focal neurological deficits. Moves all extremities spontaneously Motor and sensory grossly intact on exam. PSYCH: Normal mood, normal affect. SKIN: Warm, Dry, normal turgor, no rashes or lesions noted on exposed skin TRAVEL OUTSIDE OF THE [place] IN LAST 30 DAYS: No - Related Data Allergies/Adverse Reactions: No Known Allergies Allergy (Verified 04/27/19 11:22) Past Medical History - Social History Smoking Status: Unknown if Ever Smoked Chew tobacco use (# tins/day): No Frequency of alcohol use: None Drug Abuse: None Family History: Reviewed & Not Pertinent Patient has suicidal ideation: No Patient has homicidal ideation: No - Past Medical History Cardiac Medical History: Reports: Hx Coronary Artery Disease - quad bypass, Hx Heart Attack - 1992, Hx Hypercholesterolemia, Hx Hypertension Pulmonary Medical History: Reports: Hx Asthma - As a child Denies: Hx Bronchitis, Hx COPD, Hx Pneumonia Neurological Medical History: Denies: Hx Cerebrovascular Accident, Hx Seizures Renal/ Medical History: Reports: Hx End Stage Renal Disease. Denies: Hx Peritoneal Dialysis Musculoskeletal Medical History: Reports Hx Arthritis Psychiatric Medical History: Denies: Hx Depression Past Surgical History: Reports: Hx Cardiac Surgery - quad bypass, Hx Orthopedic Surgery - bilateral knees - Immunizations Hx Diphtheria, Pertussis, Tetanus Vaccination: Yes Hx Pneumococcal Vaccination: 08/21/17 Physical Exam - Vital signs Vitals: Temp Pulse Resp BP Pulse Ox 98.5 F 78 17 138/75 H 93 04/27/19 11:29 04/27/19 11:29 04/27/19 11:29 04/27/19 11:29 04/27/19 11:29 Course - Re-evaluation Re-evalutation: Patient seen and examined vital signs reviewed. Laboratory data and/or imaging were ordered as appropriate for the patient's presenting symptoms and complaint, with consideration of any critical or life threatening conditions that may be associated with their obtained history and exam as noted above. Results were reviewed when available and demonstrated baseline blood work for the patient, including mild leukopenia, anemia, and thrombocytopenia The patient was re-evaluated and was stable, no complaints Evaluation was most consistent with possible adverse reaction to medication, transient hypotension, discussed case with the patient's oncologist, and reviewe d all of his blood work, compared with his most recent labs, and they are all within this patient's normal ranges, he will follow-up with them in the office, and he will follow-up with his dialysis appointment tomorrow as well. Patient appeared clinically well, his blood pressure has been stable to entire ED course. Results were discussed with the patient at this point, after careful considerati on I feel that that patient can be discharged from the emergency department, the patient was educated treatments and reasons to return to the emergency department based on their presumed diagnosis as noted above, they were advised to followup with a primary care physician in 2-3 days. Patient was agreeable to plan of care. *Note is created using voice recognition software and may contain spelling, syntax or grammatical errors. Laboratory 04/27/19 04/27/19 04/27/19 15:32 15:32 15:32 WBC 3.6 L RBC 2.59 L Hgb 8.7 L Hct 26.2 L MCV 101 H MCH 33.7 H MCHC 33.4 RDW 16.9 H Plt Count 77 L Seg Neutrophils % 81.7 H Lymphocytes % 8.1 L Monocytes % 9.6 Eosinophils % 0.3 Basophils % 0.3 Absolute Neutrophils 3.0 Absolute Lymphocytes 0.3 L Absolute Monocytes 0.3 Absolute Eosinophils 0.0 Absolute Basophils 0.0 PT 14.8 INR 1.10 Sodium 141.5 Potassium 4.1 Chloride 103 Carbon Dioxide 25 Anion Gap 14 BUN 56 H Creatinine 6.28 H Est GFR ( Amer) 10 L Est GFR (Non-Af Amer) 9 L Glucose 225 H Calcium 8.6 Total Bilirubin 0.9 Direct Bilirubin 0.5 H Neonat Total Bilirubin Not Reportable Neonat Direct Bilirubin Not Reportable Neonat Indirect Bili Not Reportable AST 15 L ALT 27 Alkaline Phosphatase 84 Troponin I NT-Pro-B Natriuret Pep Total Protein 5.6 L Albumin 3.2 L Urine Color Urine Appearance Urine pH Ur Specific [place] Urine Protein Urine Glucose (UA) Urine Ketones Urine Blood Urine Nitrite Urine Bilirubin Urine Urobilinogen Ur Leukocyte Esterase Urine WBC (Auto) Urine RBC (Auto) Squamous Epi Cells Auto Urine Mucus (Auto) Urine Ascorbic Acid 04/27/19 04/27/19 15:32 15:50 WBC RBC Hgb Hct MCV MCH MCHC RDW Plt Count Seg Neutrophils % Lymphocytes % Monocytes % Eosinophils % Basophils % Absolute Neutrophils Absolute Lymphocytes Absolute Monocytes Absolute Eosinophils Absolute Basophils PT INR Sodium Potassium Chloride Carbon Dioxide Anion Gap BUN Creatinine Est GFR ( Amer) Est GFR (Non-Af Amer) Glucose Calcium Total Bilirubin Direct Bilirubin Neonat Total Bilirubin Neonat Direct Bilirubin Neonat Indirect Bili AST ALT Alkaline Phosphatase Troponin I 0.084 NT-Pro-B Natriuret Pep 931315 H Total Protein Albumin Urine Color YELLOW Urine Appearance CLEAR Urine pH 7.0 Ur Specific [place] 1.010 Urine Protein 100 H Urine Glucose (UA) 50 H Urine Ketones NEGATIVE Urine Blood SMALL H Urine Nitrite NEGATIVE Urine Bilirubin NEGATIVE Urine Urobilinogen NEGATIVE Ur Leukocyte Esterase NEGATIVE Urine WBC (Auto) 1 Urine RBC (Auto) 1 Squamous Epi Cells Auto <1 Urine Mucus (Auto) RARE Urine Ascorbic Acid NEGATIVE Chest X-Ray 04/27/19 11:58 IMPRESSION: Cardiomegaly with unchanged mild, diffuse bilateral interstitial pulmonary opacity and small left pleural effusion. There is no new airspace opacity. - Vital Signs Vital signs: Temp Pulse Resp BP Pulse Ox 98.5 F 78 19 141/65 H 96 04/27/19 11:29 04/27/19 11:29 04/27/19 18:01 04/27/19 18:01 04/27/19 18:01 - Laboratory Result Diagrams: 04/27/19 15:32 04/27/19 15:32 Laboratory results interpreted by me: 04/27/19 04/27/19 04/27/19 15:32 15:32 15:32 WBC 3.6 L RBC 2.59 L Hgb 8.7 L Hct 26.2 L MCV 101 H MCH 33.7 H RDW 16.9 H Plt Count 77 L Seg Neutrophils % 81.7 H Lymphocytes % 8.1 L Absolute Lymphocytes 0.3 L BUN 56 H Creatinine 6.28 H Est GFR ( Amer) 10 L Est GFR (Non-Af Amer) 9 L Glucose 225 H Direct Bilirubin 0.5 H AST 15 L NT-Pro-B Natriuret Pep 117068 H Total Protein 5.6 L Albumin 3.2 L Urine Protein Urine Glucose (UA) Urine Blood 04/27/19 15:50 WBC RBC Hgb Hct MCV MCH RDW Plt Count Seg Neutrophils % Lymphocytes % Absolute Lymphocytes BUN Creatinine Est GFR ( Amer) Est GFR (Non-Af Amer) Glucose Direct Bilirubin AST NT-Pro-B Natriuret Pep Total Protein Albumin Urine Protein 100 H Urine Glucose (UA) 50 H Urine Blood SMALL H - EKG Interpretation by Me Additional EKG results interpreted by me: EKG demonstrates sinus rhythm with first-degree AV block, with a ventricular rate of 70 bpm, left axis deviation, QTC 461 ms, there is T wave inversion in lead I and aVL, this is compared with prior EKG from 12/06/2016, without significant change. Discharge - Discharge Clinical Impression: Transient hypotension Condition: Stable Disposition: HOME, SELF-CARE Instructions: Hypotension ([facility]) Additional Instructions: Please follow-up with your oncologist, as usually scheduled, keep your appointments for dialysis as well. Referrals: MIGUEL FRAZIER MD [Primary Care Provider] - Follow up in 3-5 days MAGO BUTLER MD [ACTIVE STAFF] - Follow up in 3-5 days
[2019-04-27 18:14] VITALS: BP 141/65
--- NOTE | 2019-04-27 19:28 | EKG REPORT ---
SEVERITY:- ABNORMAL ECG - SINUS RHYTHM FIRST DEGREE AV BLOCK PROBABLE LEFT ATRIAL ABNORMALITY LEFT VENTRICULAR HYPERTROPHY INFERIOR INFARCT, AGE INDETERMINATE CONSIDER ANTERIOR INFARCT LATERAL LEADS ARE ALSO INVOLVED : Confirmed by: Margy Horne MD 27-Apr-2019 19:28:03
== END 2019-04-27 18:14 | disposition home or self-care (01) ==
LOC: ER 11:17
DX: I95.9 Hypotension, unspecified (principal); C90.00 Multiple myeloma not having achieved remission; Z79.899 Other long term (current) drug therapy; I13.11 Hypertensive heart and chronic kidney disease without heart failure, with stage 5 chronic kidney disease, or end stage renal disease; E11.22 Type 2 diabetes mellitus with diabetic chronic kidney disease; N18.6 End stage renal disease; Z99.2 Dependence on renal dialysis; J90 Pleural effusion, not elsewhere classified; I44.0 Atrioventricular block, first degree; I25.10 Atherosclerotic heart disease of native coronary artery without angina pectoris; Z95.5 Presence of coronary angioplasty implant and graft
CPT/HCPCS: 93005; 36591; 99285; 36415; 85025; 85610; 80053; 81001; 84484; 83880; 71045; 93010; J1642

== ENCOUNTER 2019-05-04 12:57 | Emergency (ER) | payer MEDICARE, OTHER ==
[2019-05-04 14:09] LABS: ABSOLUTE EOSINOPHILS # (AUTO) 0.2 10^3/uL (0.0-0.6); ABSOLUTE LYMPHOCYTES (AUTO) 0.4 10^3/uL (0.5-4.7); ABSOLUTE MONOCYTES (AUTO) 0.1 10^3/uL (0.1-1.4); ABSOLUTE NEUT (AUTO) 4.8 10^3/uL (1.7-8.2); BASOPHILS % (AUTO) 0.5 % (0-2); EOSINOPHILS % (AUTO) 3.6 % (0-6); HEMATOCRIT 25.6 % (37.9-51.0); HEMOGLOBIN 8.7 g/dL (13.5-17.0); INTERNATIONAL RATION (INR) 1.12; LYMPHOCYTES % (AUTO) 7.1 % (13-45); MEAN CORPUSCULAR HEMOGLOBIN 34.3 pg (27.0-33.4); MEAN CORPUSCULAR HGB CONC 34.1 g/dL (32.0-36.0); MEAN CORPUSCULAR VOLUME 101 fl (80-97); MONOCYTES % (AUTO) 2.3 % (3-13); PLATELET COUNT 113 10^3/uL (150-450); RED BLOOD COUNT 2.55 10^6/uL (4.35-5.55); RED CELL DISTRIBUTION WIDTH 17.4 % (11.5-14.0); SEGMENTED NEUTROPHILS % (AUTO) 86.5 % (42-78); TOTAL CELLS COUNTED % (AUTO) 100 %; WHITE BLOOD COUNT 5.5 10^3/uL (4.0-10.5)
--- NOTE | 2019-05-04 14:17 | ER Document Report ---
ED General - General Chief Complaint: Fever Stated Complaint: FEVER Time Seen by Provider: 05/04/19 14:14 Primary Care Provider: MIGUEL FRAZIER MD [Primary Care Provider] - Follow up as needed Notes: Patient is a 83-year-old male with multiple medical problems including active multiple myeloma undergoing treatment and end-stage renal disease on dialysis that presents to the emergency department for chief complaint of fevers, and Reiger's. Patient apparently was at the oncology office today her to receive an infusion and shortly afterwards which having a shaking episode his blood pressure dropped, and appeared uncomfortable, shortly after this episode, he was feeling much better at this time he states he feels quite well, denies any complaints. The oncology office was concerned because of the symptoms he had and wanted him to be formally evaluated with blood work to make sure that nothing else was going on. He was here about a week ago, had similar complaints after starting his Mediport, and now there is concern for infection of his catheter, he did have an injury to his knee recently, and there is some knee swelling, but no redness, or significant pain at this time at this time the patient denies any complaints, denies chest pain, shortness of breath, difficulty breathing, nausea, vomiting, abdominal pain, dysuria, hematuria. He states he does urinate despite being on dialysis. Past Medical History: End-stage renal disease on dialysis, diabetes mellitus, multiple myeloma, hypertension, CAD Past Surgical History: CABG, permacath placement Social History: Denies tobacco, alcohol or drug use. Family History: Reviewed and noncontributory for presenting illness Allergies: Reviewed, see documented allergy list. REVIEW OF SYSTEMS: Other than noted above, the 12 point review of systems was reviewed with the patient and were negative, all pertinent findings are included in the HPI. PHYSICAL EXAMINATION: Vital signs reviewed, nursing noted reviewed. GENERAL: Elderly male, no acute distress. HEAD: Atraumatic, normocephalic. EYES: Eyes appear normal, extraocular movements intact, sclera anicteric, conjunctiva are normal. ENT: nares patent, oropharynx clear without exudates. Moist mucous membranes. NECK: Normal range of motion, supple without lymphadenopathy LUNGS: Breath sounds clear to auscultation bilaterally and equal. No wheezes rales or rhonchi. HEART: Regular rate and rhythm without murmurs ABDOMEN: Soft, nontender, normoactive bowel sounds. No rebound, guarding, or rigidity. No masses appreciated. EXTREMITIES: Nontender, good range of motion, no pitting or edema. NEUROLOGICAL: No focal neurological deficits. Moves all extremities spontaneously Motor and sensory grossly intact on exam. PSYCH: Normal mood, normal affect. SKIN: Warm, Dry, normal turgor, no rashes or lesions noted on exposed skin TRAVEL OUTSIDE OF THE [place] IN LAST 30 DAYS: No - Related Data Allergies/Adverse Reactions: No Known Allergies Allergy (Verified 04/27/19 11:22) Past Medical History - Social History Smoking Status: Former Smoker Frequency of alcohol use: None Drug Abuse: None Family History: Reviewed & Not Pertinent Patient has suicidal ideation: No Patient has homicidal ideation: No - Past Medical History Cardiac Medical History: Reports: Hx Coronary Artery Disease - quad bypass, Hx Heart Attack - 1992, Hx Hypercholesterolemia, Hx Hypertension Pulmonary Medical History: Reports: Hx Asthma - As a child Denies: Hx Bronchitis, Hx COPD, Hx Pneumonia Neurological Medical History: Denies: Hx Cerebrovascular Accident, Hx Seizures Renal/ Medical History: Reports: Hx End Stage Renal Disease. Denies: Hx Peritoneal Dialysis Musculoskeletal Medical History: Reports Hx Arthritis Psychiatric Medical History: Denies: Hx Depression Past Surgical History: Reports: Hx Cardiac Surgery - quad bypass, Hx Orthopedic Surgery - bilateral knees - Immunizations Hx Diphtheria, Pertussis, Tetanus Vaccination: Yes Hx Pneumococcal Vaccination: 08/21/17 Physical Exam - Vital signs Vitals: Resp BP Pulse Ox 27 H 147/59 H 96 05/04/19 13:17 05/04/19 13:17 05/04/19 13:17 Course - Re-evaluation Re-evalutation: Patient seen and examined vital signs reviewed. Laboratory data and imaging were ordered as appropriate for the patient's presenting symptoms and complaint, with consideration of any critical or life threatening conditions that may be associated with their obtained history and exam as noted above. Patient was treated with IV vancomycin and cefepime Results were reviewed when available and demonstrated baseline labs for this patient including cytopenia, and abnormal renal function, without acute findings. Chest x-ray negative, UA negative for evidence of urinary tract infection The patient was re-evaluated and was hemodynamically stable, treated with antibiotics, blood cultures obtained Evaluation was most consistent with fever, with suspected source from the patient's indwelling Port-A-Cath, at this time we do not have dialysis beds for this patient, and he is due for dialysis tomorrow, and will need ongoing IV antibiotics until his blood cultures result 1 where the other he may need removal of his Port-A-Cath. Patient understanding this plan of care, initially did want to leave AGAINST MEDICAL ADVICE because we did not have beds, but after discussing with his oncologist, the patient was convinced to be transferred and agreed with this plan of care. Results were discussed with the patient at this point after careful consideration I feel that that patient should be transferred to [facility] due to need for a bed with dialysis. This was discussed with the patient that it is in the best interest for their care to be transferred, the risks and benefits of transfer were discussed, including but not limited to clinical deterioration during transport, respiratory distress, and potential for traumatic injuries. Patient agreed with this plan of care. Patient was accepted by Dr. Box at [facility]. Patient stable for transfer at 1829. *Note is created using voice recognition software and may contain spelling, syntax or grammatical errors. Laboratory 05/04/19 05/04/19 05/04/19 13:10 13:10 13:10 WBC 5.5 RBC 2.55 L Hgb 8.7 L Hct 25.6 L MCV 101 H MCH 34.3 H MCHC 34.1 RDW 17.4 H Plt Count 113 L Seg Neutrophils % 86.5 H Lymphocytes % 7.1 L Monocytes % 2.3 L Eosinophils % 3.6 Basophils % 0.5 Absolute Neutrophils 4.8 Absolute Lymphocytes 0.4 L Absolute Monocytes 0.1 Absolute Eosinophils 0.2 Absolute Basophils 0.0 PT 15.0 INR 1.12 Sodium 140.5 Potassium 3.9 Chloride 101 Carbon Dioxide 26 Anion Gap 14 BUN 49 H Creatinine 6.59 H Est GFR ( Amer) 10 L Est GFR (Non-Af Amer) 8 L Glucose 133 H Lactic Acid Calcium 8.2 L Total Bilirubin 0.9 Direct Bilirubin 0.7 H Neonat Total Bilirubin Not Reportable Neonat Direct Bilirubin Not Reportable Neonat Indirect Bili Not Reportable AST 16 L ALT 31 Alkaline Phosphatase 101 Total Protein 5.4 L Albumin 3.0 L Urine Color Urine Appearance Urine pH Ur Specific [place] Urine Protein Urine Glucose (UA) Urine Ketones Urine Blood Urine Nitrite Urine Bilirubin Urine Urobilinogen Ur Leukocyte Esterase Urine WBC (Auto) Urine RBC (Auto) Urine Mucus (Auto) Urine Ascorbic Acid 05/04/19 05/04/19 13:10 14:28 WBC RBC Hgb Hct MCV MCH MCHC RDW Plt Count Seg Neutrophils % Lymphocytes % Monocytes % Eosinophils % Basophils % Absolute Neutrophils Absolute Lymphocytes Absolute Monocytes Absolute Eosinophils Absolute Basophils PT INR Sodium Potassium Chloride Carbon Dioxide Anion Gap BUN Creatinine Est GFR ( Amer) Est GFR (Non-Af Amer) Glucose Lactic Acid 1.9 Calcium Total Bilirubin Direct Bilirubin Neonat Total Bilirubin Neonat Direct Bilirubin Neonat Indirect Bili AST ALT Alkaline Phosphatase Total Protein Albumin Urine Color YELLOW Urine Appearance CLEAR Urine pH 8.0 Ur Specific [place] 1.010 Urine Protein 100 H Urine Glucose (UA) 50 H Urine Ketones NEGATIVE Urine Blood NEGATIVE Urine Nitrite NEGATIVE Urine Bilirubin NEGATIVE Urine Urobilinogen NEGATIVE Ur Leukocyte Esterase NEGATIVE Urine WBC (Auto) 0 Urine RBC (Auto) 0 Urine Mucus (Auto) RARE Urine Ascorbic Acid NEGATIVE Chest X-Ray 05/04/19 14:17 IMPRESSION: Cardiomegaly without acute abnormality of the lungs in AP proje ction. - Vital Signs Vital signs: Temp Pulse Resp BP Pulse Ox 100.7 F H 84 20 151/66 H 93 05/04/19 13:25 05/04/19 13:25 05/04/19 17:01 05/04/19 17:01 05/04/19 17:01 - Laboratory Result Diagrams: 05/04/19 13:10 05/04/19 13:10 Laboratory results interpreted by me: 05/04/19 05/04/19 05/04/19 13:10 13:10 14:28 RBC 2.55 L Hgb 8.7 L Hct 25.6 L MCV 101 H MCH 34.3 H RDW 17.4 H Plt Count 113 L Seg Neutrophils % 86.5 H Lymphocytes % 7.1 L Monocytes % 2.3 L Absolute Lymphocytes 0.4 L BUN 49 H Creatinine 6.59 H Est GFR ( Amer) 10 L Est GFR (Non-Af Amer) 8 L Glucose 133 H Calcium 8.2 L Direct Bilirubin 0.7 H AST 16 L Total Protein 5.4 L Albumin 3.0 L Urine Protein 100 H Urine Glucose (UA) 50 H - EKG Interpretation by Me Additional EKG results interpreted by me: EKG demonstrates sinus rhythm with a ventricular rate of 84 bpm, left axis deviation, QTC 450 ms, noted are occasional PVCs, no ST elevation, there is T wave inversions noted in leads I, aVL, V5 and V6, this is compared with a prior EKG from 04/27/2019, without significant change. Discharge - Discharge Clinical Impression: ESRD on hemodialysis Fever Qualifiers: Fever type: unspecified Qualified Code(s): R50.9 - Fever, unspecified Multiple myeloma Qualifiers: Multiple myeloma remission status: unspecified Qualified Code(s): C90.00 - Multiple myeloma not having achieved remission Condition: Stable Disposition: Critical access hospital Instructions: Fever ([facility]) Referrals: MIGUEL FRAZIER MD [Primary Care Provider] - Follow up as needed
[2019-05-04 14:18] LABS: ALANINE AMINOTRANSFERASE 31 U/L (21-72); ALKALINE PHOSPHATASE 101 U/L (38-126); ANION GAP 14 (5-19); ASPARTATE AMINO TRANSFERASE 16 U/L (17-59); BILIRUBIN,DIRECT 0.7 mg/dL (0.0-0.4); BILIRUBIN,TOTAL 0.9 mg/dL (0.2-1.3); BLOOD UREA NITROGEN 49 mg/dL (7-20); CALCIUM 8.2 mg/dL (8.4-10.2); CARBON DIOXIDE 26 mmol/L (22-30); CHLORIDE 101 mmol/L (98-107); GLUCOSE 133 mg/dL (75-110); POTASSIUM 3.9 mmol/L (3.6-5.0); SODIUM 140.5 mmol/L (137-145); TOTAL PROTEIN 5.4 g/dL (6.3-8.2)
--- NOTE | 2019-05-04 14:52 | RADIOLOGY REPORT (SQ) ---
EXAM DESCRIPTION: CHEST SINGLE VIEW COMPLETED DATE/TIME: 05/04/2019 2:44 pm REASON FOR STUDY: fever COMPARISON: 04/27/2019 EXAM PARAMETERS: NUMBER OF VIEWS: One view. TECHNIQUE: Single frontal radiographic view of the chest acquired. RADIATION DOSE: NA LIMITATIONS: None. FINDINGS: LUNGS AND PLEURA: No opacities, masses or pneumothorax. No pleural effusion. MEDIASTINUM AND HILAR STRUCTURES: No masses. Contour normal. HEART AND VASCULAR STRUCTURES: Gross cardiomegaly status post median sternotomy. BONES: No acute findings. HARDWARE: None in the chest. OTHER: Left chest port catheter IMPRESSION: Cardiomegaly without acute abnormality of the lungs in AP projection. TECHNICAL DOCUMENTATION: JOB ID: [id number] [employer]- All Rights Reserved Reading location - IP/workstation name: [email or web address]
[2019-05-04 15:24] LABS: APPEARANCE,URINE CLEAR; BILIRUBIN,URINE NEGATIVE (NEGATIVE); COLOR,URINE YELLOW; GLUCOSE, URINE 50 mg/dL (NEGATIVE); KETONES,URINE NEGATIVE (NEGATIVE); LEUKOCYTE ESTERASE,URINE NEGATIVE (NEGATIVE); NITRITE,URINE NEGATIVE (NEGATIVE); PROTEIN,URINE 100 mg/dL (NEGATIVE); UROBILINOGEN,URINE NEGATIVE mg/dL (<2.0)
[2019-05-04] MEDS ORDERED: CEFEPIME 1 GM/D5W RTU 1 GM/50 ML RTUPB IV ONE (15:46)
[2019-05-04] MEDS ORDERED: VANCOMYCIN HCL INJ 1000 MG VIAL IV ONE (15:46)
[2019-05-04 21:15] VITALS: BP 144/75
--- NOTE | 2019-05-04 22:17 | EKG REPORT ---
SEVERITY:- ABNORMAL ECG - SINUS RHYTHM VENTRICULAR TRIGEMINY FIRST DEGREE AV BLOCK INFERIOR INFARCT, OLD ANTEROLATERAL INFARCT, AGE INDETERMINATE : Confirmed by: Venkatesh Tierney MD 04-May-2019 22:16:49
== END 2019-05-04 21:25 | disposition short-term general hospital (02) ==
LOC: ER 12:57
DX: R50.9 Fever, unspecified (principal); I13.11 Hypertensive heart and chronic kidney disease without heart failure, with stage 5 chronic kidney disease, or end stage renal disease; N18.6 End stage renal disease; E11.22 Type 2 diabetes mellitus with diabetic chronic kidney disease; Z99.2 Dependence on renal dialysis; C90.00 Multiple myeloma not having achieved remission; D75.9 Disease of blood and blood-forming organs, unspecified; I25.10 Atherosclerotic heart disease of native coronary artery without angina pectoris; I25.2 Old myocardial infarction; M25.469 Effusion, unspecified knee; Z87.891 Personal history of nicotine dependence; Z95.1 Presence of aortocoronary bypass graft
CPT/HCPCS: 93005; 99285; 96365; 96366; 96367; 36415; 87040; 87086; 82962; 85025; 85610; 87077; 80053; 81001; 87186; 83605; 71045; 93010; J3370; J0692

== ENCOUNTER 2019-05-11 12:00 | Outpatient (CLI) | payer MEDICARE, OTHER ==
[~2019-05-11 12:00] MED LIST changes: -DIAZEPAM 5 MG TABLET PO PRN; +MEROPENEM 500 MG in NORMAL SALINE 50 ML IV PRN; -OXYCODONE-ACETAMINOPHEN 5-325 MG TABLET PO PRN
[2019-05-11] MEDS ORDERED: NORMAL SALINE 250 ML IV PRN (12:01)
[2019-05-11] MEDS ORDERED: NORMAL SALINE 10 ML SDV (AFTER EACH USE) IV PRN (12:30)
[2019-05-11 13:16] VITALS: BP 119/58
== END 2019-05-11 13:26 | disposition home or self-care (01) ==
LOC: II 12:00 → 5TH 12:02 → II 13:26
PROVIDERS: ATTEND Internal Medicine
DX: T80.219A Unspecified infection due to central venous catheter, initial encounter (principal)
CPT/HCPCS: 96365; J1642; J2185

== ENCOUNTER 2019-05-16 10:33 | Outpatient (CLI) | payer MEDICARE, OTHER ==
[2019-05-16 10:59] VITALS: BP 145/69
[2019-05-16] MEDS ORDERED: NORMAL SALINE 250 ML IV PRN (11:04)
[2019-05-16] MEDS ORDERED: MEROPENEM 500 MG in NORMAL SALINE 50 ML IV PRN (11:04)
== END 2019-05-16 11:46 | disposition home or self-care (01) ==
LOC: II 10:33 → 5TH 10:57 → II 11:46
PROVIDERS: ATTEND Internal Medicine
DX: T80.219A Unspecified infection due to central venous catheter, initial encounter (principal)
CPT/HCPCS: 96365; J1642; J2185

== ENCOUNTER 2019-05-17 10:22 | Outpatient (CLI) | payer MEDICARE, OTHER ==
[~2019-05-17 10:22] MED LIST changes: +NORMAL SALINE 250 ML IV PRN
== END 2019-05-17 11:52 | disposition home or self-care (01) ==
LOC: II 10:22 → 5TH 10:23 → II 11:52
PROVIDERS: ATTEND Internal Medicine
DX: T80.219A Unspecified infection due to central venous catheter, initial encounter (principal)
CPT/HCPCS: 87040; 87077; 96365; J1642; J2185; 87186

== ENCOUNTER 2019-06-04 07:51 | Day surgery (SDC) | payer MEDICARE, OTHER ==
[~2019-06-04 07:51] MED LIST changes: +1/2 NORMAL SALINE 1,000 ML IV PRN; +CEFAZOLIN 1 GM/D5W RTU 1 GM/50 ML RTUPB IV PRN; -MEROPENEM 500 MG in NORMAL SALINE 50 ML IV PRN; -NORMAL SALINE 250 ML IV PRN
[2019-06-04] MEDS ORDERED: CEFAZOLIN 1 GM/D5W RTU 1 GM/50 ML RTUPB IV ONE (10:27)
[2019-06-04 11:02] LABS: HEMATOCRIT 29.3 % (37.9-51.0); HEMOGLOBIN 9.8 g/dL (13.5-17.0); MEAN CORPUSCULAR HEMOGLOBIN 32.3 pg (27.0-33.4); MEAN CORPUSCULAR HGB CONC 33.3 g/dL (32.0-36.0); MEAN CORPUSCULAR VOLUME 97 fl (80-97); PLATELET COUNT 137 10^3/uL (150-450); RED BLOOD COUNT 3.02 10^6/uL (4.35-5.55); RED CELL DISTRIBUTION WIDTH 22.8 % (11.5-14.0); WHITE BLOOD COUNT 6.6 10^3/uL (4.0-10.5)
[2019-06-04 11:04] LABS: ANION GAP 10 (5-19); BLOOD UREA NITROGEN 40 mg/dL (7-20); CARBON DIOXIDE 27 mmol/L (22-30); CHLORIDE 101 mmol/L (98-107); GLUCOSE 107 mg/dL (75-110); POTASSIUM 3.9 mmol/L (3.6-5.0); SODIUM 138.1 mmol/L (137-145)
[2019-06-04 11:28] LABS: ABSOLUTE LYMPHOCYTES# (MANUAL) 1.3 10^3/uL (0.5-4.7); ABSOLUTE MONOCYTES # (MANUAL) 1.1 10^3/uL (0.1-1.4); BAND NEUTROPHILS % (MANUAL) 2 % (3-5); BASOPHILS % (MANUAL) 0 % (0-2); EOSINOPHILS % (MANUAL) 3 % (0-6); LYMPHOCYTES % (MANUAL) 19 % (13-45); MONOCYTES % (MANUAL) 16 % (3-13); SEGMENTED NEUTROPHILS % (MAN) 60 % (42-78); TOTAL CELLS COUNTED 100
[2019-06-04 11:31] LABS: ANISOCYTOSIS 3+
[2019-06-04 11:32] LABS: POIKILOCYTOSIS 2+; SCHISTOCYTES SLIGHT
[2019-06-04 11:33] LABS: BURR CELLS 1+; OVALOCYTES 1+; PLATELET COMMENT DECREASED; TEAR DROP CELLS 1+
[2019-06-04] MEDS ORDERED: LIDOCAINE 0.5% INJ-PF (5 MG/ML) 50 ML SDV ONE (12:02)
[2019-06-04] MEDS ORDERED: BACITRACIN INJ 50,000 UNIT VIAL ONE (12:02)
[2019-06-04] MEDS ORDERED: MIDAZOLAM 2 MG/2 ML INJ ONE (12:04)
[2019-06-04] MEDS ORDERED: FENTANYL CITRATE INJ/PF 100 MCG/2 ML AMPUL ONE (12:04)
--- NOTE | 2019-06-04 12:18 | RADIOLOGY REPORT (SQ) ---
EXAM DESCRIPTION: CHEST SINGLE VIEW COMPLETED DATE/TIME: 06/04/2019 10:55 am REASON FOR STUDY: PRE OP COMPARISON: 05/04/2019, 04/27/2019, 04/25/2019 chest films EXAM PARAMETERS: NUMBER OF VIEWS: One view. TECHNIQUE: Single frontal radiographic view of the chest acquired. RADIATION DOSE: NA LIMITATIONS: None. FINDINGS: LUNGS AND PLEURA: Few Nara lines at both bases, question mild fluid overload. No pleura l effusion. No dense consolidation worrisome for pneumonia. No pneumothorax. MEDIASTINUM AND HILAR STRUCTURES: No masses. Contour normal. HEART AND VASCULAR STRUCTURES: Moderate cardiomegaly. Old sternotomy for CABG. BONES: No acute findings. HARDWARE: None in the chest. OTHER: No other significant finding. IMPRESSION: Moderate cardiomegaly, old sternotomy for CABG. Few Nara lines from mild fluid overload or interstitial edema TECHNICAL DOCUMENTATION: JOB ID: [id number] [employer]- All Rights Reserved Reading location - IP/workstation name: [email or web address]
--- NOTE | 2019-06-04 13:40 | Discharge Summary ---
Discharge Summary (SDC) - Discharge Final Diagnosis: #1 multiple myeloma. 2. End-stage renal disease on hemodialysis. Date of Surgery: 06/04/19 Discharge Date: 06/04/19 Condition: Fair Treatment or Instructions: Discharge home [after recovery per ASU criteria]. Diet , [renal],as tolerated, when fully awake advance as tolerated. Activities within moderation encouraged. Follow up in my office by appointment in about [1 week]. Call for appointment. Leave wounds [covered], [keep clean and dry, until office visit in 1 week]. Meds per med rec. Percocet. May shower [in 48 hrs], [try to keep operated area as dry as possible]. Prescriptions: Oxycodone HCl/Acetaminophen [Percocet 5-325 mg Tablet] 1 tab PO ASDIR PRN #15 tab PRN Reason: Referrals: MIGUEL FRAZIER MD [Primary Care Provider] - Discharge Diet: Other (Comments) - Renal. Respiratory Treatments at Home: Deep Breathing/Coughing Discharge Activity: Activity As Tolerated Report the Following to Your Physician Immediately: Unusual Bleeding - Hello pressure the
--- NOTE | 2019-06-04 13:44 | Operative Report ---
Operative Report DATE OF SURGERY: 06/04/19 PREOPERATIVE DIAGNOSIS: #1 multiple myeloma. 2. End-stage renal disease on he modialysis. POSTOPERATIVE DIAGNOSIS: #1 multiple myeloma. 2. End-stage renal disease on hemodialysis. OPERATION: 1. Ultrasound evaluation to have access and left internal jugular vein. 2. Port-A-Cath insertion via real-time access and left internal jugular vein. SURGEON: CHERRY HYLTON PAPER BOX CUTTER: None. ANESTHESIA: Moderate Sedation TISSUE REMOVED OR ALTERED: Not applicable. COMPLICATIONS: None. ESTIMATED BLOOD LOSS: 5 mL. INTRAOPERATIVE FINDINGS: Of a satisfactory right internal jugular vein, estimated 1.5 cm in diameter. PROCEDURE: After obtaining informed consent, the patient was taken to the Staff Analyst and positioned supine. The left neck and chest were prepared with chlorhexidine and draped out with sterile linen. After the " universal timeout", in which it was verified that the patient continued to receive antibiotic, the procedure commenced. A steriley sheathed ultrasound probe was used to evaluate the left internal jugular vein. Local anesthesia was infiltrated adjacent to the probe. Access into the left internal jugular vein was obtained using a micropuncture needle, followed by micropuncture wire and then a micropuncture catheter. This was followed by introduction of a 0.035 guidewire the tip of which was placed down into the inferior vena cava . The port sites was marked , locally anesthetized and incision made. Dissection now proceeded to the deep subcutaneous subcutaneous tissues so that a pocket for the port was made. Meticulous hemostasis was secured and the catheter was tunneled between the 2 incisions. Proximally, the catheter was now positioned using a peel-away sheath. Distally the catheter was tailored to an appropriate length and then mated to the port using the contained fixating device. The port was now placed in the pocket and the catheter optimally positioned. The port was accessed with a Cabello needle and an angiogram done under digital subtraction. The findings as dictated. With adequate and satisfactory positioning, the lumen of the chamber were irrigated with heparinized solution. The wounds were now closed using interrupted 3-0 PDS to the subcutaneous tissues and a continuous subcuticular suture of 4-0 Monocryl to the skin. These are reinforced with Steri-Strips over benzoin and then dressings applied. Time: 0.2 minute. Dose: Is 0.93 m Gy Contrast: 5 Mls. Isovue 300. Copies of the dictated operative report for Dr. Cherry Estrella MD.
--- NOTE | 2019-06-04 13:50 | RADIOLOGY REPORT (SQ) ---
EXAM DESCRIPTION: PORTACATH INSERTION COMPLETED DATE/TIME: 06/04/2019 1:26 pm REASON FOR STUDY: MULTIPLE MYLOMA C90.00 MULTIPLE MYELOMA NOT HAVING ACHIEVED REMISSION COMPARISON: 03/05/2019 FLUOROSCOPY TIME: 0.2 minutes 3 series of digital fluoroscopic images saved to PACS. TECHNIQUE: Intra-operative images acquired during surgical procedure to evaluate progress. NUMBER OF IMAGES: 3 series of digital fluoroscopic images LIMITATIONS: None. FINDINGS: Patient has a left-sided permanent central line with the tip in the superior vena cava. C ontrast was injected into the port, no gross fluoroscopic evidence of fibrin sheath at the catheter t ip. Please see the operative report for further details IMPRESSION: Intra procedural imaging and fluoro COMMENT: Quality ID [id number]: Final reports for procedures using fluoroscopy that document radiation exp osure indices, or exposure time and number of fluorographic images (if radiation exposure indices are not available) Please consult full operative report of the attending physician for description of the procedure. TECHNICAL DOCUMENTATION: JOB ID: [id number] [employer]- All Rights Reserved Reading location - IP/workstation name: [email or web address]
[2019-06-04 14:29] VITALS: BP 144/76
== END 2019-06-04 14:30 | disposition home or self-care (01) ==
LOC: CCL 07:51
PROVIDERS: ATTEND Surgery
DX: C90.00 Multiple myeloma not having achieved remission (principal); E11.22 Type 2 diabetes mellitus with diabetic chronic kidney disease; I12.0 Hypertensive chronic kidney disease with stage 5 chronic kidney disease or end stage renal disease; N18.6 End stage renal disease; Z96.653 Presence of artificial knee joint, bilateral; Z79.899 Other long term (current) drug therapy; Z99.2 Dependence on renal dialysis; Z87.891 Personal history of nicotine dependence
CPT/HCPCS: 36415; 85025; 80048; 36561; 76937; 77001; 71045; C1752; C1788; Q9967; J2250; J3490 ×2; J0690; J3010; J1644

== ENCOUNTER → 2019-07-23 | Outpatient (CLI) | payer MEDICARE, OTHER ==
--- NOTE | 2019-07-23 14:09 | RADIOLOGY REPORT (SQ) ---
EXAM DESCRIPTION: KNEE RIGHT 4 VIEWS COMPLETED DATE/TIME: 07/23/2019 1:53 pm REASON FOR STUDY: PAIN IN RIGHT KNEE M25.561 PAIN IN RIGHT KNEE COMPARISON: None. NUMBER OF VIEWS: Four views. TECHNIQUE: AP, lateral, and both oblique radiographic images acquired of the right knee. LIMITATIONS: None. FINDINGS: MINERALIZATION: Likely from stress shielding. Alignment is near anatomic. BONES: No evidence of fracture or dislocation. Post surgical change from the right total knee arthro plasty. Decreased periprosthetic JOINT: Small joint effusion. SOFT TISSUES: No soft tissue swelling. Scattered vascular calcifications. OTHER: No other significant finding. IMPRESSION: 1. Small joint effusion without evidence of acute bony abnormality. 2. Right total knee arthroplasty. TECHNICAL DOCUMENTATION: JOB ID: [id number] [employer]- All Rights Reserved Reading location - IP/workstation name: [email or web address]
== END ==
LOC: OD 13:23
PROVIDERS: ATTEND Family Medicine
DX: M25.561 Pain in right knee (principal)

== ENCOUNTER 2019-08-22 08:19 | Day surgery (SDC) | payer MEDICARE, OTHER ==
--- NOTE | 2019-07-25 13:07 | EKG REPORT ---
SEVERITY:- ABNORMAL ECG - SINUS RHYTHM PROBABLE LEFT ATRIAL ABNORMALITY NONSPECIFIC IVCD WITH LAD INFERIOR INFARCT, OLD ANTERIOR INFARCT, AGE INDETERMINATE : Confirmed by: Venkatesh Tierney MD 25-Jul-2019 13:06:38
[~2019-08-22 08:19] MED LIST changes: -1/2 NORMAL SALINE 1,000 ML IV PRN; +NORMAL SALINE 1000 ML (RENAL PATIENTS) IV PRN; +NORMAL SALINE 1000 ML 1,000 ML IV PRN
[2019-08-22] MEDS ORDERED: LIDOCAINE 2% INJ-PF (20 MG/ML) 2 ML AMPUL ONE (09:12)
[2019-08-22] MEDS ORDERED: DEXAMETHASONE SOD PHOSPHATE INJ 4 MG/1 ML VIAL ONE (09:12)
[2019-08-22] MEDS ORDERED: NEOSTIGMINE METHYLSULFATE 10 MG/10 ML VIAL ONE (09:12)
[2019-08-22] MEDS ORDERED: GLYCOPYRROLATE 1 MG/5 ML VIAL ONE (09:12)
[2019-08-22] MEDS ORDERED: ONDANSETRON HCL INJ/PF 4 MG/2 ML SDV ONE (09:12)
[2019-08-22] MEDS ORDERED: ROCURONIUM BROMIDE INJ 50 MG/5 ML VIAL IV ONE (09:12)
[2019-08-22] MEDS ORDERED: CEFAZOLIN 1 GM/D5W RTU 1 GM/50 ML RTUPB IV ONE (09:32)
[2019-08-22] MEDS ORDERED: BUPIVACAINE HCL 0.25% /EPINEPHRINE INJ/PF 30 ML SDV ONE (09:53)
[2019-08-22 09:55] LABS: ABSOLUTE BASOPHILS # (AUTO) 0.1 10^3/uL (0.0-0.2); ABSOLUTE EOSINOPHILS # (AUTO) 0.2 10^3/uL (0.0-0.6); ABSOLUTE LYMPHOCYTES (AUTO) 1.8 10^3/uL (0.5-4.7); ABSOLUTE MONOCYTES (AUTO) 1.2 10^3/uL (0.1-1.4); BASOPHILS % (AUTO) 0.9 % (0-2); EOSINOPHILS % (AUTO) 3.2 % (0-6); HEMATOCRIT 26.3 % (37.9-51.0); HEMOGLOBIN 8.8 g/dL (13.5-17.0); MEAN CORPUSCULAR HEMOGLOBIN 33.2 pg (27.0-33.4); MEAN CORPUSCULAR HGB CONC 33.3 g/dL (32.0-36.0); MEAN CORPUSCULAR VOLUME 100 fl (80-97); MONOCYTES % (AUTO) 19.4 % (3-13); PLATELET COUNT 105 10^3/uL (150-450); RED BLOOD COUNT 2.63 10^6/uL (4.35-5.55); RED CELL DISTRIBUTION WIDTH 18.7 % (11.5-14.0); SEGMENTED NEUTROPHILS % (AUTO) 47.5 % (42-78); TOTAL CELLS COUNTED % (AUTO) 100 %; WHITE BLOOD COUNT 6.3 10^3/uL (4.0-10.5)
[2019-08-22] MEDS ORDERED: PROPOFOL INJ 200 MG/20 ML VIAL IV ONE (10:06)
[2019-08-22] MEDS ORDERED: FENTANYL CITRATE INJ/PF 250 MCG/5 ML AMPULE ONE (10:06)
[2019-08-22] MEDS ORDERED: MIDAZOLAM 2 MG/2 ML INJ ONE (10:06)
[2019-08-22] MEDS ORDERED: DIPHENHYDRAMINE HCL 50 MG/ML VIAL IV PRN (10:10)
[2019-08-22] MEDS ORDERED: OXYCODONE-ACETAMINOPHEN 5-325 MG TABLET PO PRN ×3 (10:10→12:48)
[2019-08-22] MEDS ORDERED: FENTANYL CITRATE INJ/PF 100 MCG/2 ML AMPUL IV PRN ×3 (10:10)
[2019-08-22] MEDS ORDERED: MEPERIDINE HCL/PF INJ 25 MG/1 ML DISP.SYRIN IV PRN (10:10)
[2019-08-22] MEDS ORDERED: PROMETHAZINE HCL INJ 25 MG/1 ML VIAL IV PRN ×2 (10:10)
[2019-08-22 10:28] LABS: ANION GAP 11 (5-19); BLOOD UREA NITROGEN 50 mg/dL (7-20); CALCIUM 7.4 mg/dL (8.4-10.2); CARBON DIOXIDE 26 mmol/L (22-30); CHLORIDE 102 mmol/L (98-107); GLUCOSE 91 mg/dL (75-110); POTASSIUM 3.8 mmol/L (3.6-5.0)
--- NOTE | 2019-08-22 12:47 | Operative Report ---
Nonrecallable Operative Report DATE OF SURGERY: 08/22/19 PREOPERATIVE DIAGNOSIS: Left inguinal hernia POSTOPERATIVE DIAGNOSIS: Left inguinal hernia OPERATION: Laparoscopic left inguinal hernia repair SURGEON: BREANNE BURGOS ANESTHESIA: GA TISSUE REMOVED OR ALTERED: None ESTIMATED BLOOD LOSS: 0 INTRAOPERATIVE FINDINGS: See note PROCEDURE: Patient was brought to the operating room awake alert stable condition placed in the operative table supine position induced under general anesthesia and intubated Duckworth catheter was placed the abdomen was prepped and draped in usual sterile manner for the procedure after appropriate timeout site verification a curvilinear infraumbilical incision was made with a 15 blade dissection was carried down through subcutaneous tissue with Bovie cautery to be identified the rectus abdominis fascia transverse incision was made in the fascia and the muscle was retracted laterally We created a plane between the rectus muscle and the posterior sheath were we placed the Spacemaker balloon and slid that down to the pubic symphysis. The Spacemaker balloon was then insufflated under direct vision creating a space to perform the repair. Two 5 mm ports were placed under direct vision and the working trocar was placed at the umbilical incision. We turned attention to the left side identified the Winston's ligament the epigastric vessels and then laterally the transversalis muscle we dissected the peritoneum away for the transversalis fascia laterally continue that dissection down distally until we reached the cord structures the cord structures were then lifted up and dissected away from the hernia sac which was a indirect inguinal hernia sac the sac was mobilized out of the internal ring and posterior eyes proximally. There was no evidence of direct inguinal hernia. Once this was completed we use a piece of polypropylene mesh 6 x 6 inches divided that in half and created a slit down the side of the 3 x 6 cm piece of mesh. This placed into the retroperitoneum medially it was fixed to the Winston's ligament on the posterior aspect of it anteriorly it was fixed to the rectus muscle with the absorbable tack. It was then flexed laterally to the transversalis muscle and then passed underneath the cord structures and fixed again to the transversalis muscles laterally creating a mesh repair. The retroperitoneum was reduced allowing the peritoneal structures to lie up against the mesh and then the ports were removed the fascial defect at the umbilical position was closed with 0 Vicryl and then all 3 skin incisions were closed with intracuticular 4-0 Monocryl Steri-Strips completed the procedure estimated blood loss was negligible sponge needle counts were correct x2 the patient was awakened in the operating room extubated transferred recovery in stable condition
--- NOTE | 2019-08-22 12:48 | Discharge Summary ---
Discharge Summary (SDC) - Discharge Final Diagnosis: Left inguinal hernia Date of Surgery: 08/22/19 Condition: Good Treatment or Instructions: No weight lifting greater than 10 pounds for 6 weeks Referrals: MIGUEL FRAZIER MD [Primary Care Provider] - Discharge Diet: As Tolerated Discharge Activity: Activity As Tolerated, No Lifting Over 10 Pounds Report the Following to Your Physician Immediately: Shortness of Breath, Unusual Bleeding - Follow-up appointment with me in 2 to 3 weeks
[2019-08-22 14:36] VITALS: BP 147/69
== END 2019-08-22 14:30 | disposition home or self-care (01) ==
LOC: OROUT 08:19
PROVIDERS: ATTEND Surgery
DX: K40.90 Unilateral inguinal hernia, without obstruction or gangrene, not specified as recurrent (principal); C90.00 Multiple myeloma not having achieved remission; I25.2 Old myocardial infarction; I12.0 Hypertensive chronic kidney disease with stage 5 chronic kidney disease or end stage renal disease; E11.22 Type 2 diabetes mellitus with diabetic chronic kidney disease; N18.6 End stage renal disease; Z95.1 Presence of aortocoronary bypass graft; Z96.653 Presence of artificial knee joint, bilateral; Z95.828 Presence of other vascular implants and grafts; Z79.899 Other long term (current) drug therapy; Z01.818 Encounter for other preprocedural examination
CPT/HCPCS: 93005; 36415; 82962; 85025; 80048; 93010; 49650; C1781; J2250; J3490 ×4; J0690; J1100; J3010; J2710; J2405; J2704; J1642; 840

== ENCOUNTER 2019-10-09 11:28 | Emergency (ER) | payer MEDICARE, OTHER ==
--- NOTE | 2019-10-09 12:00 | ER Document Report ---
ED Medical Screen (RME) - General Stated Complaint: ANTIBIOTIC THERAPY Time Seen by Provider: 10/09/19 11:52 Primary Care Provider: ANA FORD MD [Primary Care Provider] - Follow up as needed TRAVEL OUTSIDE OF THE [place] IN LAST 30 DAYS: No - HPI Notes: 10/09/19 12:00 84-year-old male to the emergency department with family from Dr. Ford's office for antibiotic therapy. Apparently several weeks ago he had a port removed from his left upper chest that was infected. On review of labs the tip of the catheter grew Pseudomonas. He would see Dr. Ford this morning and Dr. Song sent him over here for further antibiotic therapy. Patient states that he feels well. He is a dialysis patient he has dialysis every Tuesday, , Tuesday. He has been compliant with his dialysis. He denies any other complaints. I performed a brief medical screening exam on this patient and determined he needs further management and evaluation by means at ER provider. I placed initial orders to help expedite in his treatment plan today to include lab work and medications. - Related Data Allergies/Adverse Reactions: No Known Allergies Allergy (Verified 10/09/19 11:50) Past Medical History - Past Medical History Cardiac Medical History: Reports: Hx Coronary Artery Disease - quad bypass, Hx Heart Attack - 1992, Hx Hypercholesterolemia, Hx Hypertension Pulmonary Medical History: Reports: Hx Asthma - As a child Denies: Hx Bronchitis, Hx COPD, Hx Pneumonia Neurological Medical History: Denies: Hx Cerebrovascular Accident, Hx Seizures Renal/ Medical History: Reports: Hx End Stage Renal Disease. Denies: Hx Peritoneal Dialysis Musculoskeltal Medical History: Reports Hx Arthritis Psychiatric Medical History: Denies: Hx Depression Past Surgical History: Reports: Hx Cardiac Surgery - quad bypass, Hx Orthopedic Surgery - bilateral knees - Immunizations Hx Diphtheria, Pertussis, Tetanus Vaccination: Yes Physical Exam - Vital signs Vitals: Temp Pulse Resp BP Pulse Ox 98.0 F 90 18 119/49 L 99 10/09/19 11:39 10/09/19 11:39 10/09/19 11:39 10/09/19 11:39 10/09/19 11:39 Course - Vital Signs Vital signs: Temp Pulse Resp BP Pulse Ox 98.0 F 90 18 119/49 L 99 10/09/19 11:39 10/09/19 11:39 10/09/19 11:39 10/09/19 11:39 10/09/19 11:39 Doctor's Discharge - Discharge Referrals: ANA FORD MD [Primary Care Provider] - Follow up as needed
[2019-10-09] MEDS ORDERED: PIPERACILLIN/TAZOBACTAM 3.375 GM VIAL IV ONE (12:08)
--- NOTE | 2019-10-09 13:01 | ER Document Report ---
ED General - General Chief Complaint: Abnormal Lab Results Stated Complaint: ANTIBIOTIC THERAPY Time Seen by Provider: 10/09/19 11:52 Primary Care Provider: MIGUEL SONG MD [Primary Care Provider] - Follow up as needed ANA FORD MD [ACTIVE STAFF] - Follow up as needed KAJAL DODGE MD [ACTIVE STAFF] - Follow up as needed Roberta THOMAS MD [ACTIVE STAFF] - Follow up as needed TRAVEL OUTSIDE OF THE [place] IN LAST 30 DAYS: No - HPI Onset: This morning Onset/Duration: Gradual Quality of pain: No pain Severity: None Context: Delightful 84 year old male arrives via lobby after going to hemodialysis today as he was directed to come here due to + blood cultures. He has a history of CLL, htn, ESRD and osteoarthritis. He has had a left chest catheter removed by Er. Ford and Dr. Dodge aspirated his right knee a few weeks ago. Both of those cultures grew a pansensative pseudomanas. Exacerbated by: Denies Relieved by: Denies - Related Data Allergies/Adverse Reactions: No Known Allergies Allergy (Verified 10/09/19 11:50) Past Medical History - Social History Smoking Status: Never Smoker Chew tobacco use (# tins/day): No Frequency of alcohol use: None Drug Abuse: None Family History: Reviewed & Not Pertinent Patient has suicidal ideation: No Patient has homicidal ideation: No - Past Medical History Cardiac Medical History: Reports: Hx Coronary Artery Disease - quad bypass, Hx Heart Attack - 1992, Hx Hypercholesterolemia, Hx Hypertension Pulmonary Medical History: Reports: Hx Asthma - As a child Denies: Hx Bronchitis, Hx COPD, Hx Pneumonia Neurological Medical History: Denies: Hx Cerebrovascular Accident, Hx Seizures Renal/ Medical History: Reports: Hx End Stage Renal Disease. Denies: Hx Peritoneal Dialysis Musculoskeletal Medical History: Reports Hx Arthritis Psychiatric Medical History: Denies: Hx Depression Past Surgical History: Reports: Hx Cardiac Surgery - quad bypass, Hx Orthopedic Surgery - bilateral knees - Immunizations Hx Diphtheria, Pertussis, Tetanus Vaccination: Yes Hx Pneumococcal Vaccination: 08/21/17 Review of Systems - Review of Systems Constitutional: No symptoms reported EENT: No symptoms reported Cardiovascular: No symptoms reported Respiratory: No symptoms reported Gastrointestinal: No symptoms reported Genitourinary: No symptoms reported Male Genitourinary: No symptoms reported Musculoskeletal: No symptoms reported Skin: No symptoms reported Hematologic/Lymphatic: No symptoms reported Neurological/Psychological: No symptoms reported Physical Exam - Vital signs Vitals: Temp Pulse Resp BP Pulse Ox 98.0 F 90 18 119/49 L 99 10/09/19 11:39 10/09/19 11:39 10/09/19 11:39 10/09/19 11:39 10/09/19 11:39 Interpretation: Normal - General General appearance: Appears well, Alert - HEENT Head: Normocephalic, Atraumatic Eyes: Normal Pupils: PERRL - Respiratory Respiratory status: No respiratory distress Chest status: Nontender Breath sounds: Normal Chest palpation: Normal - Cardiovascular Rhythm: Regular Heart sounds: Normal auscultation Murmur: No - Abdominal Inspection: Normal Distension: No distension Bowel sounds: Normal Tenderness: Nontender Organomegaly: No organomegaly - Back Back: Normal, Nontender - Extremities General upper extremity: Normal inspection, Nontender, Normal color, Normal ROM, Normal temperature General lower extremity: Normal inspection, Tender, Normal color, Normal ROM, Normal temperature, Normal weight bearing. No: Nontender, Alexia's sign - Neurological Neuro grossly intact: Yes Cognition: Normal Orientation: AAOx4 [place] Coma Scale Eye Opening: Spontaneous Naz Coma Scale Verbal: Oriented Naz Coma Scale Motor: Obeys Commands Naz Coma Scale Total: 15 Speech: Normal Motor strength normal: LUE, RUE, LLE, RLE Sensory: Normal - Psychological Associated symptoms: Normal affect, Normal mood - Skin Skin Temperature: Warm Skin Moisture: Dry Skin Color: Normal Course - Re-evaluation Re-evalutation: 10/09/19 15:22 MDM Complex male pt is here with 2 + cultures for pseudomonas (1 catheter tip and 1 from right knee aspiration). I have discussed the pt with and Dr. Dudley (nephrologists) and Dr. Song (PCP) and the nephrology group will have dual antibiotics scheduled for HD on and for the next several we eks thereafter. I have reviewed the plan with the pt and family and while the pt has + cultures he is nontoxic and feels at baseline. He is likely to be colonized with peudomonas and a trial of treatment at HD is reasonable at this pt. The orhto portion will also need close follow up. - Vital Signs Vital signs: Temp Pulse Resp BP Pulse Ox 98.0 F 90 18 119/49 L 99 10/09/19 11:39 10/09/19 11:39 10/09/19 11:39 10/09/19 11:39 10/09/19 11:39 - Laboratory Result Diagrams: 10/09/19 13:22 10/09/19 13:22 Laboratory results interpreted by me: 10/09/19 10/09/19 10/09/19 13:22 13:22 13:22 RBC 3.54 L Hgb 11.9 L Hct 35.6 L MCV 101 H MCH 33.7 H RDW 18.1 H Plt Count 135 L [place] % (Auto) 14.6 H Potassium 3.2 L BUN 40 H Creatinine 4.77 H Est GFR ( Amer) 14 L Est GFR (MDRD) Non-Af 12 L Calcium 8.2 L Urine Protein 100 H Urine Glucose (UA) 150 H - Diagnostic Test Radiology reviewed: Image reviewed, Reports reviewed Discharge - Discharge Clinical Impression: Pseudomonas aeruginosa colonization, ESRD (end stage renal disease) on dialysis, Pseudomonal arthritis Hypertension Qualifiers: Hypertension type: unspecified Qualified Code(s): I10 - Essential (primary) hypertension Condition: Good Disposition: HOME, SELF-CARE Instructions: Kidney Failure ([facility]), Knee Effusion ([facility]) Additional Instructions: Keep the follow up for dialysis on . Please return here for any problems or any concerns. Referrals: ANA FORD MD [ACTIVE STAFF] - Follow up as needed MIGUEL SONG MD [Primary Care Provider] - Follow up as needed Roberta THOMAS MD [ACTIVE STAFF] - Follow up as needed KAJAL DODGE MD [ACTIVE STAFF] - Follow up as needed
--- NOTE | 2019-10-09 13:07 | RADIOLOGY REPORT (SQ) ---
EXAM DESCRIPTION: CHEST SINGLE VIEW COMPLETED DATE/TIME: 10/09/2019 12:50 pm REASON FOR STUDY: cough COMPARISON: AP view of the chest from 06/04/2019. EXAM PARAMETERS: NUMBER OF VIEWS: One view. TECHNIQUE: Single frontal radiographic view of the chest acquired. RADIATION DOSE: NA LIMITATIONS: None. FINDINGS: LUNGS AND PLEURA: No consolidation, pleural effusion or pneumothorax. MEDIASTINUM AND HILAR STRUCTURES: Stable mediastinal and hilar contours. HEART AND VASCULAR STRUCTURES: The cardiac silhouette is enlarged. The pulmonary vasculature is with in normal limits. BONES: No acute findings. HARDWARE: Sternotomy wires and mediastinal surgical clips. OTHER: No other finding. IMPRESSION: Cardiomegaly without a superimposed acute cardiopulmonary process. TECHNICAL DOCUMENTATION: JOB ID: [id number] [employer]- All Rights Reserved Reading location - IP/workstation name: [email or web address]
[2019-10-09 13:55] LABS: ABSOLUTE BASOPHILS # (AUTO) 0.1 10^3/uL (0.0-0.2); ABSOLUTE EOSINOPHILS # (AUTO) 0.1 10^3/uL (0.0-0.6); ABSOLUTE LYMPHOCYTES (AUTO) 1.7 10^3/uL (0.5-4.7); ABSOLUTE MONOCYTES (AUTO) 1.1 10^3/uL (0.1-1.4); ABSOLUTE NEUT (AUTO) 4.3 10^3/uL (1.7-8.2); BASOPHILS % (AUTO) 1.1 % (0-2); EOSINOPHILS % (AUTO) 1.7 % (0-6); HEMATOCRIT 35.6 % (37.9-51.0); HEMOGLOBIN 11.9 g/dL (13.5-17.0); LYMPHOCYTES % (AUTO) 23.3 % (13-45); MEAN CORPUSCULAR HEMOGLOBIN 33.7 pg (27.0-33.4); MEAN CORPUSCULAR HGB CONC 33.5 g/dL (32.0-36.0); MEAN CORPUSCULAR VOLUME 101 fl (80-97); MONOCYTES % (AUTO) 14.6 % (3-13); PLATELET COUNT 135 10^3/uL (150-450); RED BLOOD COUNT 3.54 10^6/uL (4.35-5.55); RED CELL DISTRIBUTION WIDTH 18.1 % (11.5-14.0); SEGMENTED NEUTROPHILS % (AUTO) 59.3 % (42-78); TOTAL CELLS COUNTED % (AUTO) 100 %; WHITE BLOOD COUNT 7.2 10^3/uL (4.0-10.5)
[2019-10-09] MEDS ORDERED: GENTAMICIN SULFATE INJ 80 MG/2 ML VIAL IV ONE (14:00)
[2019-10-09 14:34] LABS: ALBUMIN 3.9 g/dL (3.5-5.0); ALKALINE PHOSPHATASE 98 U/L (38-126); ANION GAP 13 (5-19); ASPARTATE AMINO TRANSFERASE 27 U/L (17-59); BILIRUBIN,DIRECT 0.4 mg/dL (0.0-0.4); BILIRUBIN,TOTAL 0.8 mg/dL (0.2-1.3); BLOOD UREA NITROGEN 40 mg/dL (7-20); CALCIUM 8.2 mg/dL (8.4-10.2); CARBON DIOXIDE 30 mmol/L (22-30); CHLORIDE 99 mmol/L (98-107); GLUCOSE 106 mg/dL (75-110); POTASSIUM 3.2 mmol/L (3.6-5.0); TOTAL PROTEIN 7.1 g/dL (6.3-8.2)
[2019-10-09 14:49] LABS: APPEARANCE,URINE CLEAR; BILIRUBIN,URINE NEGATIVE (NEGATIVE); COLOR,URINE YELLOW; GLUCOSE, URINE 150 mg/dL (NEGATIVE); KETONES,URINE NEGATIVE (NEGATIVE); LEUKOCYTE ESTERASE,URINE NEGATIVE (NEGATIVE); NITRITE,URINE NEGATIVE (NEGATIVE); PROTEIN,URINE 100 mg/dL (NEGATIVE); UROBILINOGEN,URINE NEGATIVE mg/dL (<2.0)
[2019-10-09 16:25] VITALS: BP 133/49
== END 2019-10-09 16:40 | disposition home or self-care (01) ==
LOC: ER 11:28
DX: R79.89 Other specified abnormal findings of blood chemistry (principal); B96.5 Pseudomonas (aeruginosa) (mallei) (pseudomallei) as the cause of diseases classified elsewhere; M13.88 Other specified arthritis, other site; I12.0 Hypertensive chronic kidney disease with stage 5 chronic kidney disease or end stage renal disease; N18.6 End stage renal disease; E78.00 Pure hypercholesterolemia, unspecified; Z99.2 Dependence on renal dialysis; Z95.1 Presence of aortocoronary bypass graft; I25.2 Old myocardial infarction
CPT/HCPCS: 99284; 96375; 96365; 96366; J1580; J2543; 36415; 71045; 80053; 81001; 83605; 85025; 87040

== ENCOUNTER 2019-10-10 11:39 | Inpatient (IN) | payer MEDICARE, OTHER ==
[2019-10-10] MEDS ORDERED: ACETAMINOPHEN 325 MG TABLET PO PRN (12:35)
--- NOTE | 2019-10-10 12:52 | PDOC H&P ---
History of Present Illness Admission Date/PCP: 10/10/19 11:39 MIGUEL FRAZIER MD Patient complains of: Left knee sepsis History of Present Illness: UGO ROY is a 84 year old male his is a 84-year-old male with a history of multiple myeloma history of end-s tage renal disease on hemodialysis recently had a Port-A-Cath removed due to the infections was grew up the Pseudomonas and also complaining of the left knee pain and effusion and Dr. Dodge aspirated and grow Pseudomonas Patients have a Pseudomonas on the Port-A-Cath site Pseudomonas on the left knee which is a prosthetic device surgery sent to the emergency department yesterday for further evaluations In the ER patient does not look septic in ER physicians discussed with the nephrology Dr. Dudley and most likely suggest that get the IV antibiotic while patient is not septic Dr. Dalal a general surgery called me last night and suggest that the patient's might need to be admitted because patient have a Pseudomonas on the both side and the left prosthetic device in the I think is a part of her problems to best way to treat the patient's to be admitting in the hospital Discussed with the nephrology this morning and she suggest that that is okay to admit the patient's in the bed available in the hospital for the dialysis Discussed with the oncology At this point patient is brought to my office today patient's denied any complaints no fever no chills Admit the patient is directly in the hospital for IV antibiotic as per discussed with the nephrology start with the cefepime 1 g and she will give a gentamicin for the dialysis Discussed with the Dr. Dodge he will evaluate the patient's Discussed with the Dr. José the patient's cardiology he will see the patient Past Medical History Cardiac Medical History: Reports: Coronary Artery Disease - quad bypass, Myocardial Infarction - 1992, Hyperlipidema, Hypertension Pulmonary Medical History: Reports: Asthma - As a child Denies: Bronchitis, Chronic Obstructive Pulmonary Disease (COPD), Pneumonia Neurological Medical History: Denies: Seizures Renal/ Medical History: Reports: End Stage Renal Disease Malignancy Medical History: Reports: Bone Cancer Musculoskeltal Medical History: Reports: Arthritis Psychiatric Medical History: Denies: Depression Hematology: Denies: Anemia Past Surgical History Past Surgical History: Reports: Orthopedic Surgery - bilateral knees Social History Smoking Status: Former Smoker Electronic Cigarette use?: No Last Time Smoked: 1966 Frequency of Alcohol Use: None Hx Recreational Drug Use: No Drugs: None Hx Prescription Drug Abuse: No Family History Family History: Reviewed & Not Pertinent Parental Family History Reviewed: Yes Children Family History Reviewed: Yes Sibling(s) Family History Reviewed.: Yes Medication/Allergy Home Medications: Atorvastatin Calcium 80 mg PO QAM 02/02/16 Finasteride [Proscar 5 mg Tablet] 5 mg PO DAILY 02/02/16 Amlodipine Besylate 5 mg PO QPM 10/31/17 Metoprolol Succinate [Toprol Xl] 25 mg PO QAM 10/31/17 Omeprazole 40 mg PO QPM 10/31/17 Dexamethasone [Decadron] 40 mg PO .QWEEKLY PRN 08/22/19 Diclofenac Sodium 4 gm TOP QIDP PRN 10/10/19 Furosemide [Lasix 20 mg Tablet] 20 mg PO DAILY 10/10/19 Allergies/Adverse Reactions: No Known Allergies Allergy (Verified 10/09/19 11:50) Review of Systems Constitutional: ABSENT: chills, fever(s), headache(s), weight gain, weight loss Eyes: ABSENT: visual disturbances Ears: ABSENT: hearing changes Cardiovascular: ABSENT: chest pain, dyspnea on exertion, edema, orthropnea, palpitations Respiratory: ABSENT: cough, hemoptysis Gastrointestinal: ABSENT: abdominal pain, constipation, diarrhea, hematemesis, hematochezia, nausea, vomiting Genitourinary: ABSENT: dysuria, hematuria Musculoskeletal: ABSENT: joint swelling Integumentary: ABSENT: rash, wounds Neurological: ABSENT: abnormal gait, abnormal speech, confusion, dizziness, focal weakness, syncope Psychiatric: ABSENT: anxiety, depression, homidical ideation, suicidal ideation Endocrine: ABSENT: cold intolerance, heat intolerance, menstrual abnormalities, polydipsia, polyuria Hematologic/Lymphatic: ABSENT: easy bleeding, easy bruising, lymphadenopathy Physical Exam Vital Signs: Temp Pulse Resp BP Pulse Ox 97.6 F 49 L 16 125/44 L 96 10/10/19 12:12 10/10/19 12:12 10/10/19 12:12 10/10/19 12:12 10/10/19 12:12 Intake & Output 10/09/19 10/10/19 10/11/19 06:59 06:59 06:59 Weight 65.5 kg General appearance: PRESENT: no acute distress, well-developed, well-nourished Head exam: PRESENT: atraumatic, normocephalic Eye exam: PRESENT: conjunctiva pink, EOMI, PERRLA. ABSENT: scleral icterus Ear exam: PRESENT: normal external ear exam Mouth exam: PRESENT: moist, tongue midline Neck exam: PRESENT: full ROM. ABSENT: carotid bruit, JVD, lymphadenopathy, thyromegaly Respiratory exam: PRESENT: clear to auscultation lucien Cardiovascular exam: PRESENT: RRR. ABSENT: diastolic murmur, rubs, systolic murmur Pulses: PRESENT: normal dorsalis pedis pul, +2 pedal pulses bilateral Vascular exam: PRESENT: normal capillary refill GI/Abdominal exam: PRESENT: normal bowel sounds, soft. ABSENT: distended, guarding, mass, organolmegaly, rebound, tenderness Rectal exam: PRESENT: deferred Extremities exam: ABSENT: pedal edema Musculoskeletal exam: PRESENT: ambulatory Neurological exam: PRESENT: alert, awake, oriented to person, oriented to place, oriented to time, oriented to situation, CN II-XII grossly intact. ABSENT: motor sensory deficit Psychiatric exam: PRESENT: appropriate affect, normal mood. ABSENT: homicidal ideation, suicidal ideation Skin exam: PRESENT: dry, intact, warm. ABSENT: cyanosis, rash Assessment & Plan - Diagnosis (1) Septic joint of left knee joint Qualifiers: Septic arthritis organism: due to unspecified organism Qualified Code(s): M00.9 - Pyogenic arthritis, unspecified Is this a current diagnosis for this admission?: Yes Plan: Pseudomonas in the left knee aspirations we consulted Dr. Dodge for further evaluations Dr. Dodge already seen and aspirate the knee start the patient on IV antibiotics (2) Coronary artery disease Qualifiers: Coronary Disease-Associated Artery/Lesion type: bypass graft Associated angina: without angina Is this a current diagnosis for this admission?: Yes Plan: Get the EKG and consult to Dr. José for possible preop evaluations (3) ESRD (end stage renal disease) on dialysis Is this a current diagnosis for this admission?: Yes Plan: Currently on hemodialysis consult the nephrology (4) Hypertension Qualifiers: Hypertension type: essential hypertension Qualified Code(s): I10 - Essential (primary) hypertension Is this a current diagnosis for this admission?: Yes Plan: Currently all stable (5) Multiple myeloma Qualifiers: Multiple myeloma remission status: not in remission Qualified Code(s): C90.00 - Multiple myeloma not having achieved remission Is this a current diagnosis for this admission?: Yes Plan: We will consult the Dr. pascual for continued care (6) Pseudomonal arthritis Is this a current diagnosis for this admission?: Yes Plan: Start the patient on IV cefepime and I discussed with the Dr. dudley also given gentamicin to the dialysis - Time Time Spent: 50 to 70 Minutes Medications reviewed and adjusted accordingly: Yes Anticipated discharge: Home Within: Other - Inpatient Certification Based on my medical assessment, after consideration of the patient's comorbidities, presenting symptoms, or acuity I expect that the services needed warrant INPATIENT care.: Yes I certify that my determination is in accordance with my understanding of Medicare's requirements for reasonable and necessary INPATIENT services [42 CFR 412.3e].: Yes Medical Necessity: Significant Comorbidiites Make Outpatient Treatment Too Risky, Need Close Monitoring Due to Risk of Patient Decompensation, Need For Continuous Telemetry Monitoring, Need for IV Antibiotics Post Hospital Care: 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
[2019-10-10] MEDS: CEFEPIME 1 GM/D5W RTU 1 GM/50 ML RTUPB IV SCH ×2 (13:27→21:52)
[2019-10-10 13:40] LABS: INTERNATIONAL RATION (INR) 1.12; PROTHROMBIN TIME 14.5 SEC (11.4-15.4)
[2019-10-10 13:54] LABS: ANION GAP 14 (5-19); CARBON DIOXIDE 26 mmol/L (22-30); CHLORIDE 102 mmol/L (98-107); GLUCOSE 114 mg/dL (75-110); POTASSIUM 3.6 mmol/L (3.6-5.0)
[2019-10-10 14:08] LABS: BLOOD UREA NITROGEN 60 mg/dL (7-20)
--- NOTE | 2019-10-10 14:40 | RADIOLOGY REPORT (SQ) ---
EXAM DESCRIPTION: CHEST SINGLE VIEW COMPLETED DATE/TIME: 10/10/2019 2:23 pm REASON FOR STUDY: sepsis COMPARISON: 10/09/2019 EXAM PARAMETERS: NUMBER OF VIEWS: One view. TECHNIQUE: Single frontal radiographic view of the chest acquired. RADIATION DOSE: NA LIMITATIONS: None. FINDINGS: LUNGS AND PLEURA: No opacities, masses or pneumothorax. No pleural effusion. MEDIASTINUM AND HILAR STRUCTURES: No masses. Contour normal. HEART AND VASCULAR STRUCTURES: Heart is enlarged. No failure. BONES: No acute findings. HARDWARE: Sternotomy wires are in place. OTHER: No other significant finding. IMPRESSION: Stable cardiomegaly. No other significant findings. TECHNICAL DOCUMENTATION: JOB ID: [id number] [employer]- All Rights Reserved Reading location - IP/workstation name: [email or web address]
[2019-10-10] MEDS ORDERED: (PENDING PHARMACY ID) (Diclofenac Sodium [Diclofenac Sodium] 4 GM) TOP PRN (15:20)
[2019-10-10] MEDS ORDERED: (PENDING PHARMACY ID) (Lenalidomide [Revlimid] 5 MG) PO SCH (15:30)
[2019-10-10] MEDS: CALCIUM ACETATE 667 MG CAPSULE PO SCH (16:19)
[2019-10-10 16:22] LABS: APPEARANCE,URINE CLEAR; BILIRUBIN,URINE NEGATIVE (NEGATIVE); COLOR,URINE YELLOW; GLUCOSE, URINE 150 mg/dL (NEGATIVE); KETONES,URINE NEGATIVE (NEGATIVE); LEUKOCYTE ESTERASE,URINE NEGATIVE (NEGATIVE); NITRITE,URINE NEGATIVE (NEGATIVE); PROTEIN,URINE 30 mg/dL (NEGATIVE); URINE SPECIFIC GRAVITY 1.009; UROBILINOGEN,URINE NEGATIVE mg/dL (<2.0)
[2019-10-10] MEDS: DOCUSATE SODIUM 100 MG CAPSULE PO SCH (17:08)
--- NOTE | 2019-10-10 21:13 | PDOC CONSULTATION ---
Consultation Consult Date: 10/10/19 Provider Consulted: TASH FRAGOSO Consult reason:: I was asked to see the patient to supervise dialysis and antibiotic dosing in a patient with ESRD. History of Present Illness Admission Date/PCP: 10/10/19 11:39 MIGUEL SONG MD History of Present Illness: UGO ROY is a 84 -year-old pleasant gentleman with history of multiple myeloma, end-stage renal disease on hemodialysis, coronary artery disease and previous bilateral knee replacements who was admitted by Dr. Song today due to Pseudomonas infection. On October 02 the patient had right knee arthrocentesis by Dr. Dodge and culture of the synovial fluid grew Pseudomonas aeruginosa. Prior to that he had a removal of a Port-A-Cath on September [address] Ford and the catheter tip also grew Pseudomonas aeruginosa. According to the patient he was not given any antibiotics yet until yesterday when he was advised to go to the emergency room. In the emergency room yesterday the emergency room provider assessed the patient to be nontoxic and clinically well and thought that he can just be given antibiotics during dialysis treatment for an extended period of time due to possible Pseudomonas colonization as above. The ER physician called me and so the plan is to give the patient IV antibiotics during dialysis treatment and I plan to give him IV cefepime and IV gentamicin. He was given IV Zosyn and IV gentamicin yesterday in the emergency room and then was discharged home. Today there was a concern that the patient needing to be treated as an inpatient due to his multiple comorbidities. Dr. Song called me this morning indicating such so I agreed to see the patient and supervise dialysis and antibiotic management if needed while here in the hospital. When I saw the patient today he looks fairly well, and nontoxic at all. He said the only problem he has is his right knee swelling which started about 3 months ago. He has some difficulty with extending his right leg from a flexed position due to the right knee swelling. Aside from that he otherwise denies any other symptoms including fever, chills, anorexia nor fatigue. He has good appetite as I see him eating his dinner when I evaluated him. His last complete dialysis was yesterday. He does not have any other complaints. Past Medical History Cardiac Medical History: Reports: Coronary Artery Disease - quad bypass, Hyperlipidemia, Myocardial Infarction - 1992 Pulmonary Medical History: Reports: Asthma - As a child Renal/ Medical History: Reports: End Stage Renal Disease Malignancy Medical History: Reports: Bone Cancer Musculoskeltal Medical History: Reports: Arthritis Hematology Medical History: Reports Anemia of Chronic Kidney Disease Past Surgical History Past Surgical History: Reports: Orthopedic Surgery - bilateral knees Social History Information Source: Patient, [facility] Records Smoking Status: Former Smoker Electronic Cigarette use?: No Last Time Smoked: 1966 Frequency of Alcohol Use: None Hx Recreational Drug Use: No Drugs: None Hx Prescription Drug Abuse: No Family History Family History: Reviewed & Not Pertinent Parental Family History Reviewed: Yes Children Family History Reviewed: Yes Sibling(s) Family History Reviewed.: Yes Medication/Allergy Home Medications: Atorvastatin Calcium 80 mg PO DAILY 02/02/16 Finasteride [Proscar 5 mg Tablet] 5 mg PO DAILY 02/02/16 Amlodipine Besylate 5 mg PO DAILY 10/31/17 Metoprolol Succinate [Toprol Xl] 25 mg PO DAILY 10/31/17 Omeprazole 40 mg PO DAILYP PRN 10/31/17 Calcium Acetate [Phoslo 667 Mg Capsule] 1,334 mg PO MEALS 10/10/19 Diclofenac Sodium 4 gm TOP QIDP PRN 10/10/19 Furosemide [Lasix 20 mg Tablet] 20 mg PO DAILY 10/10/19 Lenalidomide [Revlimid] 5 mg PO Q2D 10/10/19 Vit B Comp No.3/Folic/C/Biotin [Sarah-Roberth Rx Tablet] 1 each PO DAILY 10/10/19 Allergies/Adverse Reactions: No Known Allergies Allergy (Verified 10/09/19 11:50) Review of Systems All systems: reviewed and no additional remarkable complaints except as stated Review of Systems: Constitutional: ABSENT: chills, fatigue, fever(s), headache(s), weight gain, weight loss Eyes: ABSENT: visual disturbances Ears: ABSENT: hearing changes Cardiovascular: ABSENT: chest pain, dyspnea on exertion, edema, orthropnea, palpitations Respiratory: ABSENT: cough, dyspnea, hemoptysis Gastrointestinal: ABSENT: abdominal pain, constipation, diarrhea, hematemesis, hematochezia, nausea, vomiting Genitourinary: ABSENT: dysuria, hematuria Musculoskeletal: Reports right knee joint swelling and limited mobility. Integumentary: ABSENT: rash, wounds Neurological: ABSENT: abnormal gait, abnormal speech, confusion, dizziness, focal weakness, numbness, syncope Psychiatric: ABSENT: anxiety, depression Endocrine: ABSENT: cold intolerance, heat intolerance, polydipsia, polyuria Hematologic/Lymphatic: ABSENT: easy bleeding, easy bruising, lymphadenopathy Physical Exam Vital Signs: Temp Pulse Resp BP Pulse Ox 97.7 F 33 L 16 146/48 H 100 10/10/19 15:50 10/10/19 15:50 10/10/19 15:50 10/10/19 15:50 10/10/19 15:50 Intake & Output 10/09/19 10/10/19 10/11/19 06:59 06:59 06:59 Intake Total 50 Balance 50 Weight 65.5 kg Exam: General appearance: No acute distress, cooperative, well-developed, well- nourished, not toxic or ill-appearing. Head exam: PRESENT: atraumatic, normocephalic Eye exam: PRESENT: Conjunctiva [place], EOMI, PERRLA. ABSENT: conjunctival inje ction, scleral icterus Mouth exam: PRESENT: moist, neck supple, tongue midline Neck exam: PRESENT: full ROM. ABSENT: carotid bruit, JVD, lymphadenopathy, thyromegaly Respiratory exam: PRESENT: clear to auscultation bilaterally. ABSENT: rales, rhonchi, stridor, wheezes Cardiovascular exam: PRESENT: RRR, +S1, +S2. Grade 2/6 systolic murmur Pulses: PRESENT: normal radial pulses, normal dorsalis pedis pulses GI/Abdominal exam: PRESENT: normal bowel sounds, soft. ABSENT: guarding, mass, tenderness Rectal exam: Deferred Extremities exam: PRESENT: full ROM except for limited right knee flexion and extension ABSENT: calf tenderness, pedal edema Musculoskeletal: PRESENT: Right knee is grossly swollen associated with warmth to touch, mild tenderness, crepitus and effusion with limited motion as above ABSENT: deformity Neurological exam: PRESENT: alert, Awake, Oriented to person, Oriented to place, Oriented to time, reflexes normal, CN II-XII grossly intact. ABSENT: motor sensory deficit Psychiatric exam: PRESENT: appropriate affect, normal mood. ABSENT: homicidal ideation, suicidal ideation Skin exam: PRESENT: intact, dry, warm. ABSENT: rash Results Laboratory Results: 10/10/19 13:12 10/10/19 10/10/19 10/10/19 13:12 14:26 15:50 Sodium 141.8 Potassium 3.6 Chloride 102 Carbon Dioxide 26 Anion Gap 14 BUN 60 H D Creatinine 7.03 H Est GFR ( Amer) 9 L Glucose 114 H Lactic Acid 1.6 Calcium 8.0 L Urine Color YELLOW Urine Appearance CLEAR Urine pH 8.0 Ur Specific [place] 1.009 Urine Protein 30 H Urine Glucose (UA) 150 H Urine Ketones NEGATIVE Urine Blood NEGATIVE Urine Nitrite NEGATIVE Ur Leukocyte Esterase NEGATIVE Urine WBC (Auto) 0 Urine RBC (Auto) 0 Impressions: Chest X-Ray 10/10/19 00:00 IMPRESSION: Stable cardiomegaly. No other significant findings. Assessment & Plan - Diagnosis (1) Septic joint of left knee joint Qualifiers: Septic arthritis organism: due to other bacteria Qualified Code(s): M00.862 - Arthritis due to other bacteria, left knee Is this a current diagnosis for this admission?: Yes Plan: Secondary to pseudomonas aeruginosa. Due to the presence of prosthesis, this needs to be treated with extended IV antibiotics possibly 4 to 6 weeks with double coverage for Pseudomonas. He might need to have more aspiration of the effusion if possible, will defer that to orthopedics. Agree with IV cefepime and IV gentamicin. Further IV cefepime, I think he will be okay with 1 g IV daily rather than every 12. We will get a trough level of gentamicin tomorrow and re-dose as necessary. For long-term support of this antibiotics can be given during dialysis as an outpatient. (2) ESRD (end stage renal disease) on dialysis Is this a current diagnosis for this admission?: Yes Plan: We will continue maintenance hemodialysis while here in the hospital. Patient does not need hemodialysis today. We will check his labs tomorrow and reevaluate if he needed dialysis but will plan on dialysis on Tuesday definitely. (3) Hypertension Qualifiers: Hypertension type: essential hypertension Qualified Code(s): I10 - Essential (primary) hypertension Is this a current diagnosis for this admission?: Yes Plan: Continue home blood pressure medications. (4) Multiple myeloma Qualifiers: Multiple myeloma remission status: not in remission Qualified Code(s): C90.00 - Multiple myeloma not having achieved remission Is this a current diagnosis for this admission?: Yes Plan: Hematology consulted. (5) Pseudomonal arthritis Is this a current diagnosis for this admission?: Yes (6) Pseudomonas aeruginosa colonization Is this a current diagnosis for this admission?: Yes Plan: With the presence of pseudomonas aeruginosa both on the portacatheter tip culture and synovial fluid, patient is most likely colonized with Pseudomonas. - Notes Notes: Thank you very much for this consultation. We will follow the patient with you. - Time Time Spent: 50 to 70 Minutes
[2019-10-10] MEDS ORDERED: CEFEPIME 1 GM/D5W RTU 1 GM/50 ML RTUPB IV SCH (22:00)
--- NOTE | 2019-10-10 23:30 | EKG REPORT ---
SEVERITY:- ABNORMAL ECG - SINUS RHYTHM VENTRICULAR TRIGEMINY FIRST DEGREE AV BLOCK NONSPECIFIC IVCD WITH LAD INFERIOR INFARCT, OLD CONSIDER ANTERIOR INFARCT : Confirmed by: Margy Horne MD 10-Oct-2019 23:30:19
[2019-10-11 06:20] LABS: ABSOLUTE BASOPHILS # (AUTO) 0.1 10^3/uL (0.0-0.2); ABSOLUTE EOSINOPHILS # (AUTO) 0.2 10^3/uL (0.0-0.6); ABSOLUTE LYMPHOCYTES (AUTO) 2.2 10^3/uL (0.5-4.7); ABSOLUTE MONOCYTES (AUTO) 1.1 10^3/uL (0.1-1.4); ABSOLUTE NEUT (AUTO) 3.9 10^3/uL (1.7-8.2); BASOPHILS % (AUTO) 1.3 % (0-2); EOSINOPHILS % (AUTO) 3.2 % (0-6); HEMATOCRIT 30.3 % (37.9-51.0); HEMOGLOBIN 10.3 g/dL (13.5-17.0); LYMPHOCYTES % (AUTO) 28.7 % (13-45); MEAN CORPUSCULAR HEMOGLOBIN 33.8 pg (27.0-33.4); MEAN CORPUSCULAR VOLUME 99 fl (80-97); MONOCYTES % (AUTO) 14.7 % (3-13); PLATELET COUNT 114 10^3/uL (150-450); RED BLOOD COUNT 3.05 10^6/uL (4.35-5.55); RED CELL DISTRIBUTION WIDTH 18.1 % (11.5-14.0); SEGMENTED NEUTROPHILS % (AUTO) 52.1 % (42-78); TOTAL CELLS COUNTED % (AUTO) 100 %; WHITE BLOOD COUNT 7.6 10^3/uL (4.0-10.5)
[2019-10-11 06:46] LABS: ANION GAP 12 (5-19); BLOOD UREA NITROGEN 66 mg/dL (7-20); CALCIUM 7.7 mg/dL (8.4-10.2); CARBON DIOXIDE 24 mmol/L (22-30); CHLORIDE 102 mmol/L (98-107); GLUCOSE 90 mg/dL (75-110); POTASSIUM 3.6 mmol/L (3.6-5.0)
--- NOTE | 2019-10-11 07:14 | PDOC CONSULTATION ---
Consultation Consult Date: 10/11/19 Provider Consulted: KAJAL MCDERMOTT Consult reason:: Right knee pain History of Present Illness Admission Date/PCP: 10/10/19 11:39 MIGUEL SONG MD History of Present Illness: UGO ROY is a 84 year old male The patient is an 84-year-old white male with a past medical history notable for renal failure, dialysis dependent as well as multiple myeloma. The history is been well covered by Dr. Cantor and Dr. Song. Basically the patient presented with right knee pain following removal of a dialysis catheter for a Pseudomonas infection. The patient underwent an aspiration in my office of right knee effusion which is subsequently grown Pseudomonas. Past Medical History Cardiac Medical History: Reports: Coronary Artery Disease - quad bypass, Myocardial Infarction - 1992, Hyperlipidema, Hypertension Pulmonary Medical History: Reports: Asthma - As a child Denies: Bronchitis, Chronic Obstructive Pulmonary Disease (COPD), Pneumonia Neurological Medical History: Denies: Seizures Renal/ Medical History: Reports: End Stage Renal Disease Malignancy Medical History: Reports: Bone Cancer Musculoskeltal Medical History: Reports: Arthritis Psychiatric Medical History: Denies: Depression Hematology: Denies: Anemia Past Surgical History Past Surgical History: Reports: Orthopedic Surgery - bilateral knees Social History Information Source: Patient, [facility], [facility] Records Lives with: Alone Smoking Status: Former Smoker Electronic Cigarette use?: No Last Time Smoked: 1966 Frequency of Alcohol Use: None Hx Recreational Drug Use: No Drugs: None Hx Prescription Drug Abuse: No Family History Family History: Reviewed & Not Pertinent Parental Family History Reviewed: No Children Family History Reviewed: No Sibling(s) Family History Reviewed.: No Medication/Allergy Home Medications: Atorvastatin Calcium 80 mg PO DAILY 02/02/16 Finasteride [Proscar 5 mg Tablet] 5 mg PO DAILY 02/02/16 Amlodipine Besylate 5 mg PO DAILY 10/31/17 Metoprolol Succinate [Toprol Xl] 25 mg PO DAILY 10/31/17 Omeprazole 40 mg PO DAILYP PRN 10/31/17 Calcium Acetate [Phoslo 667 Mg Capsule] 1,334 mg PO MEALS 10/10/19 Diclofenac Sodium 4 gm TOP QIDP PRN 10/10/19 Furosemide [Lasix 20 mg Tablet] 20 mg PO DAILY 10/10/19 Lenalidomide [Revlimid] 5 mg PO Q2D 10/10/19 Vit B Comp No.3/Folic/C/Biotin [Sarah-Roberth Rx Tablet] 1 each PO DAILY 10/10/19 Allergies/Adverse Reactions: No Known Allergies Allergy (Verified 10/09/19 11:50) Review of Systems All systems: as per PMH Physical Exam Vital Signs: Temp Pulse Resp BP Pulse Ox 36.7 C 60 19 131/57 H 98 10/11/19 00:12 10/11/19 02:00 10/11/19 00:12 10/11/19 00:12 10/11/19 00:12 Intake & Output 10/10/19 10/11/19 10/12/19 06:59 06:59 06:59 Intake Total 100 Balance 100 Weight 66.4 kg Physical Exam: The patient is a relatively young appearing male who is alert, oriented and appropriate. Patient is in moderate distress with respect to his right knee. Respiratory exam: PRESENT: unlabored Cardiovascular exam: PRESENT: RRR Pulses: PRESENT: +1 pedal pulses bilateral Vascular exam: PRESENT: normal capillary refill Extremities exam: PRESENT: other - Well-healed right knee midline incision. Significant underlying effusion. Tenderness to palpation. Pain with active range of motion. No instability. Distal neurovascular examination is intact. Neurological exam: PRESENT: alert, awake, oriented to person, oriented to place, oriented to time, oriented to situation. ABSENT: motor sensory deficit Psychiatric exam: PRESENT: appropriate affect, normal mood. ABSENT: homicidal ideation, suicidal ideation Skin exam: PRESENT: dry, intact, warm. ABSENT: cyanosis, rash Results Laboratory Results: 10/11/19 05:30 10/11/19 05:30 10/10/19 10/10/19 10/10/19 13:12 14:26 15:50 WBC RBC Hgb Hct MCV MCH MCHC RDW Plt Count Seg Neutrophils % Sodium 141.8 Potassium 3.6 Chloride 102 Carbon Dioxide 26 Anion Gap 14 BUN 60 H D Creatinine 7.03 H Est GFR ( Amer) 9 L Glucose 114 H Lactic Acid 1.6 Calcium 8.0 L Magnesium Urine Color YELLOW Urine Appearance CLEAR Urine pH 8.0 Ur Specific [place] 1.009 Urine Protein 30 H Urine Glucose (UA) 150 H Urine Ketones NEGATIVE Urine Blood NEGATIVE Urine Nitrite NEGATIVE Ur Leukocyte Esterase NEGATIVE Urine WBC (Auto) 0 Urine RBC (Auto) 0 10/11/19 10/11/19 05:30 05:30 WBC 7.6 RBC 3.05 L Hgb 10.3 L Hct 30.3 L MCV 99 H MCH 33.8 H MCHC 34.0 RDW 18.1 H Plt Count 114 L Seg Neutrophils % 52.1 Sodium 138.4 Potassium 3.6 Chloride 102 Carbon Dioxide 24 Anion Gap 12 BUN 66 H Creatinine 8.38 H Est GFR ( Amer) 7 L Glucose 90 Lactic Acid Calcium 7.7 L Magnesium 1.4 L Urine Color Urine Appearance Urine pH Ur Specific [place] Urine Protein Urine Glucose (UA) Urine Ketones Urine Blood Urine Nitrite Ur Leukocyte Esterase Urine WBC (Auto) Urine RBC (Auto) Impressions: Chest X-Ray 10/10/19 00:00 IMPRESSION: Stable cardiomegaly. No other significant findings. Status: Imported from PACS Assessment & Plan - Diagnosis (1) Septic arthritis of knee, right Qualifiers: Septic arthritis organism: due to other bacteria Qualified Code(s): M00.861 - Arthritis due to other bacteria, right knee Is this a current diagnosis for this admission?: Yes Plan: This is a relatively complicated situation and I think deserves communication among the caregivers. From an orthopedic standpoint the patient has a right knee periprosthetic infection with Pseudomonas that is resulting in significant pain and functional disability but no evidence of systemic compromise or sepsis. The patient has significant immunocompromise as a result of his myeloma as well as as a result of his dialysis dependent renal failure. The bacterial infection in his right knee be considered chronic. This results in a glycocalyx or slime that adheres to the surface of metal and plastic that serves to protect the underlying microorganisms from the immune system as well as from antibiotics. The only way to eradicate the infection is to remove the underlying hardware. And a normally functioning individual with an active immune system my recommendation would be for what is termed a two-stage reconstruction where the implant is removed, a cement spacer is inserted, the infection eradicated with IV antibiotics, and then the patient returns for a repeat knee reconstruction. Would give the patient the greatest chance of eradicating the underlying infection and returning to an independent living status. Not sure that this is the appropriate treatment for this individual. Alternatives would be aspiration which may serve to temporarily decompress the joint and make the patient feel better but will do nothing to eradicate the underlying infection. The next alternative would be to open the knee joint and performed irrigation debridement and tried to remove as much of the bacterial load is possible coupled with prolonged IV antibiotics and subsequent suppressive p.o. therapy. An intermediate step would be what is called a one stage reconstruction where the existing knee is removed and a replacement knee is placed at the same time. This is a slightly less successful outcome in large studies. The difference being 94% success versus 90% success with a one stage reconstruction. I look forward to discussions with the patient's other caregivers in trying to arrive at the appropriate treatment for this patient. - Time Time Spent: 50 to 70 Minutes Anticipated discharge: Other Within: Other
[2019-10-11] MEDS: CALCIUM ACETATE 667 MG CAPSULE PO SCH ×3 (07:51→17:17)
--- NOTE | 2019-10-11 09:10 | PDOC PROGRESS REPORT ---
Subjective Progress Note for:: 10/10/19 Subjective:: Patient was seen yesterday on evening rounds. He was admitted for possible septic arthritis of the replaced right knee. Patient however denied any chest pain. He has some shortness of breath. Patient noted to have an abnormal EKG. He is noted to have cardiomegaly on chest x-ray. It is felt that patient may end up needing knee surgery. I was therefore asked to evaluate patient. Reason For Visit: LEFT KNEE SEPSIS,ESRD,CAD Physical Exam Vital Signs: Temp Pulse Resp BP Pulse Ox 97.5 F 57 L 18 146/52 H 99 10/11/19 07:54 10/11/19 07:54 10/11/19 07:54 10/11/19 07:54 10/11/19 07:54 Intake & Output 10/10/19 10/11/19 10/12/19 06:59 06:59 06:59 Intake Total 100 Balance 100 Weight 66.4 kg Exam: GENERAL: well-nourished and in no acute distress. Alert and oriented x3 HEAD: Atraumatic, normocephalic. EYES: NÉSTOR, sclera anicteric, conjunctiva are normal. ENT: Moist mucous membranes. No oral ulcerations or bleeding gums noted. No obvious ear, nose or throat abnormalities noted. NECK: supple without lymphadenopathy. Trachea is central. No cervical or axillary lymphadenopathy noted. Carotids are 2+, JVD WNL LUNGS: Breath sounds clear bilaterally. No wheezes rales or rhonchi noted. No significant dullness noted on percussion. CHEST: Palpation of the chest wall shows no significant chest wall tenderness. IV port noted for chemotherapy. 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 ABDOMEN: Soft, no significant tenderness appreciated, normoactive bowel sounds. No guarding, no rebound. No rigidity noted . No masses appreciated. EXTREMITIES: Pedal pulses are 1-2+, no calf tenderness noted. No clubbing or cyanosis. negative pedal edema noted. Fistula noted in the right arm. Right knee swollen and tender as well as slightly warm. NEUROLOGICAL: Focused neurological exam showed no significant neurologic deficit. Normal speech, no focal weakness appreciated. PSYCH: Normal mood, normal affect. Judgment and insight within normal limits. SKIN: No significant ecchymosis, skin is noted to be warm. MUSCULOSKELETAL EXAM: No significant acute joint swelling noted. Results Laboratory Results: 10/11/19 05:30 10/11/19 05:30 10/10/19 10/10/19 10/10/19 13:12 14:26 15:50 WBC RBC Hgb Hct MCV MCH MCHC RDW Plt Count Seg Neutrophils % Sodium 141.8 Potassium 3.6 Chloride 102 Carbon Dioxide 26 Anion Gap 14 BUN 60 H D Creatinine 7.03 H Est GFR ( Amer) 9 L Glucose 114 H Lactic Acid 1.6 Calcium 8.0 L Magnesium Urine Color YELLOW Urine Appearance CLEAR Urine pH 8.0 Ur Specific [place] 1.009 Urine Protein 30 H Urine Glucose (UA) 150 H Urine Ketones NEGATIVE Urine Blood NEGATIVE Urine Nitrite NEGATIVE Ur Leukocyte Esterase NEGATIVE Urine WBC (Auto) 0 Urine RBC (Auto) 0 10/11/19 10/11/19 05:30 05:30 WBC 7.6 RBC 3.05 L Hgb 10.3 L Hct 30.3 L MCV 99 H MCH 33.8 H MCHC 34.0 RDW 18.1 H Plt Count 114 L Seg Neutrophils % 52.1 Sodium 138.4 Potassium 3.6 Chloride 102 Carbon Dioxide 24 Anion Gap 12 BUN 66 H Creatinine 8.38 H Est GFR ( Amer) 7 L Glucose 90 Lactic Acid Calcium 7.7 L Magnesium 1.4 L Urine Color Urine Appearance Urine pH Ur Specific [place] Urine Protein Urine Glucose (UA) Urine Ketones Urine Blood Urine Nitrite Ur Leukocyte Esterase Urine WBC (Auto) Urine RBC (Auto) EKG Comments: Twelve-lead EKG shows sinus rhythm, old inferior RI, possible old anterior RI, ventricular ectopics Impressions: Chest X-Ray 10/10/19 00:00 IMPRESSION: Stable cardiomegaly. No other significant findings. Assessment & Plan - Diagnosis (1) Septic arthritis of knee, right Qualifiers: Septic arthritis organism: due to other bacteria Qualified Code(s): M00.861 - Arthritis due to other bacteria, right knee Is this a current diagnosis for this admission?: Yes (2) Coronary artery disease Qualifiers: Coronary Disease-Associated Artery/Lesion type: bypass graft Associated angina: without angina Is this a current diagnosis for this admission?: Yes (3) Diabetes mellitus type 2 in nonobese Is this a current diagnosis for this admission?: Yes (4) ESRD (end stage renal disease) on dialysis Is this a current diagnosis for this admission?: Yes (5) Hypertension Qualifiers: Hypertension type: essential hypertension Qualified Code(s): I10 - Essential (primary) hypertension Is this a current diagnosis for this admission?: Yes - Notes Notes: Patient felt to be stable from cardiac standpoint. Continue beta-la therapy, statin therapy and other supportive therapy including antiplatelets. Patient felt to be stable to undergo right knee surgery but is at above average risk but not in the prohibitive range. I have ordered a echo to evaluate LVEF. Patient being seen by other specialist. Will continue to follow patient. - Time Time with patient: Greater than 35 minutes Medications reviewed and adjusted accordingly: Yes
[2019-10-11] MEDS ORDERED: (PENDING PHARMACY ID) (Vit B Comp No.3/Folic/C/Biotin [Rena-Vite Rx Tablet] 1 EACH) PO SCH (10:00)
[2019-10-11] MEDS: CEFEPIME 1 GM/D5W RTU 1 GM/50 ML RTUPB IV SCH (10:16)
[2019-10-11] MEDS: DOCUSATE SODIUM 100 MG CAPSULE PO SCH ×2 (10:16→17:17)
[2019-10-11] MEDS: VITAMIN B COMPLEX TABLET PO SCH (10:17)
[2019-10-11] MEDS: AMLODIPINE BESYLATE 5 MG TABLET PO SCH (10:17)
[2019-10-11] MEDS: FUROSEMIDE 20 MG TABLET PO SCH (10:17)
[2019-10-11] MEDS: ATORVASTATIN CALCIUM 80 MG TABLET PO SCH (10:18)
[2019-10-11] MEDS: METOPROLOL SUCCINATE 25 MG TAB.SR.24H PO SCH (10:18)
[2019-10-11] MEDS: FINASTERIDE 5 MG TABLET PO SCH (10:18)
[2019-10-11] MEDS: PANTOPRAZOLE SODIUM 40 MG TABLET.DR PO SCH (10:18)
--- NOTE | 2019-10-11 11:54 | PDOC PROGRESS REPORT ---
Subjective Progress Note for:: 10/11/19 Subjective:: Patient remains to be hemodynamically stable. The only complaint that he has is the right knee swelling and limitation of movement. Dr. Nielsen has seen him this morning and is late the options of therapy. Reason For Visit: LEFT KNEE SEPSIS,ESRD,CAD Physical Exam Vital Signs: Temp Pulse Resp BP Pulse Ox 97.5 F 57 L 18 146/52 H 99 10/11/19 07:54 10/11/19 07:54 10/11/19 07:54 10/11/19 07:54 10/11/19 07:54 Intake & Output 10/10/19 10/11/19 10/12/19 06:59 06:59 06:59 Intake Total 100 Balance 100 Weight 66.4 kg Exam: General appearance: PRESENT: no acute distress, cooperative, well-developed, well-nourished Head exam: PRESENT: atraumatic, normocephalic Eye exam: PRESENT: conjunctiva pink, PERRLA. ABSENT: scleral icterus Neck exam: ABSENT: JVD Respiratory exam: PRESENT: Normal breath sounds. ABSENT: crackles, rales, rhonchi, unlabored, wheezes Cardiovascular exam: PRESENT: Regular rate rhythm -+S1, +S2. ABSENT: diastolic murmur, systolic murmur GI/Abdominal exam: PRESENT: normal bowel sounds, soft. ABSENT: guarding, mass, tenderness Extremities exam: ABSENT: No edema; right knee swelling associated with warmth, crepitus and limitation of motion. Neurological exam: PRESENT: alert, awake, oriented to person, place and time. Skin exam: PRESENT: dry, warm, Results Laboratory Results: 10/11/19 05:30 10/11/19 05:30 10/10/19 10/10/19 10/10/19 13:12 14:26 15:50 WBC RBC Hgb Hct MCV MCH MCHC RDW Plt Count Seg Neutrophils % Sodium 141.8 Potassium 3.6 Chloride 102 Carbon Dioxide 26 Anion Gap 14 BUN 60 H D Creatinine 7.03 H Est GFR ( Amer) 9 L Glucose 114 H Lactic Acid 1.6 Calcium 8.0 L Magnesium Urine Color YELLOW Urine Appearance CLEAR Urine pH 8.0 Ur Specific [place] 1.009 Urine Protein 30 H Urine Glucose (UA) 150 H Urine Ketones NEGATIVE Urine Blood NEGATIVE Urine Nitrite NEGATIVE Ur Leukocyte Esterase NEGATIVE Urine WBC (Auto) 0 Urine RBC (Auto) 0 10/11/19 10/11/19 05:30 05:30 WBC 7.6 RBC 3.05 L Hgb 10.3 L Hct 30.3 L MCV 99 H MCH 33.8 H MCHC 34.0 RDW 18.1 H Plt Count 114 L Seg Neutrophils % 52.1 Sodium 138.4 Potassium 3.6 Chloride 102 Carbon Dioxide 24 Anion Gap 12 BUN 66 H Creatinine 8.38 H Est GFR ( Amer) 7 L Glucose 90 Lactic Acid Calcium 7.7 L Magnesium 1.4 L Urine Color Urine Appearance Urine pH Ur Specific [place] Urine Protein Urine Glucose (UA) Urine Ketones Urine Blood Urine Nitrite Ur Leukocyte Esterase Urine WBC (Auto) Urine RBC (Auto) Impressions: Chest X-Ray 10/10/19 00:00 IMPRESSION: Stable cardiomegaly. No other significant findings. Assessment & Plan - Diagnosis (1) Septic joint of left knee joint Qualifiers: Septic arthritis organism: due to other bacteria Qualified Code(s): M00.862 - Arthritis due to other bacteria, left knee Is this a current diagnosis for this admission?: Yes Plan: Secondary to pseudomonas aeruginosa in the patient with prosthetic hardware. Dr. Dodge has enumerated options for treatment. From nephrology standpoint, I do not see any issues with patient going to surgery at any time. We will continue to support him with dialysis perioperatively if patient will proceed with surgery. Given Pseudomonas infection involving the prosthesis, I do not think giving IV antibiotics alone even for extended period of time can eradicate the infection and I would favor the surgical option which ever is best with Dr. Dodge's recommendations. Meanwhile continue IV cefepime, recommend 1 g every 24 hours. The gentamicin trough level is adequate and will re-dose post dialysis treatments. (2) ESRD (end stage renal disease) on dialysis Is this a current diagnosis for this admission?: Yes Plan: We will plan for dialysis tomorrow. (3) Hypertension Qualifiers: Hypertension type: essential hypertension Qualified Code(s): I10 - Essential (primary) hypertension Is this a current diagnosis for this admission?: Yes Plan: Adequately controlled. Hold blood pressure medication prior to dialysis treatment. (4) Multiple myeloma Qualifiers: Multiple myeloma remission status: not in remission Qualified Code(s): C90.00 - Multiple myeloma not having achieved remission Is this a current diagnosis for this admission?: Yes (5) Pseudomonal arthritis Is this a current diagnosis for this admission?: Yes Plan: On IV cefepime and IV gentamicin for now. (6) Pseudomonas aeruginosa colonization Is this a current diagnosis for this admission?: Yes - Time Time with patient: 15-25 minutes
--- NOTE | 2019-10-11 13:40 | PDOC PROGRESS REPORT ---
Subjective Progress Note for:: 10/11/19 Subjective:: Patient is feeling better after starting antibiotic able to move the knee patient seen by Dr. Dodge today Since does not look septic at this point Reason For Visit: LEFT KNEE SEPSIS,ESRD,CAD Physical Exam Vital Signs: Temp Pulse Resp BP Pulse Ox 97.5 F 59 L 16 127/70 H 98 10/11/19 12:01 10/11/19 12:01 10/11/19 12:01 10/11/19 12:01 10/11/19 12:01 Intake & Output 10/10/19 10/11/19 10/12/19 06:59 06:59 06:59 Intake Total 100 Balance 100 Weight 66.4 kg General appearance: PRESENT: no acute distress, well-developed, well-nourished Head exam: PRESENT: atraumatic, normocephalic Eye exam: PRESENT: conjunctiva pink, EOMI, PERRLA. ABSENT: scleral icterus Ear exam: PRESENT: normal external ear exam Mouth exam: PRESENT: moist, tongue midline Neck exam: PRESENT: full ROM. ABSENT: carotid bruit, JVD, lymphadenopathy, thyromegaly Respiratory exam: PRESENT: clear to auscultation lucien Cardiovascular exam: PRESENT: RRR. ABSENT: diastolic murmur, rubs, systolic murmur Pulses: PRESENT: normal dorsalis pedis pul, +2 pedal pulses bilateral Vascular exam: PRESENT: normal capillary refill GI/Abdominal exam: PRESENT: normal bowel sounds, soft. ABSENT: distended, guarding, mass, organolmegaly, rebound, tenderness Rectal exam: PRESENT: deferred Musculoskeletal exam: PRESENT: ambulatory Neurological exam: PRESENT: alert, awake, oriented to person, oriented to place, oriented to time, oriented to situation, CN II-XII grossly intact. ABSENT: motor sensory deficit Psychiatric exam: PRESENT: appropriate affect, normal mood. ABSENT: homicidal ideation, suicidal ideation Skin exam: PRESENT: dry, intact, warm. ABSENT: cyanosis, rash Results Laboratory Results: 10/11/19 05:30 10/11/19 05:30 10/10/19 10/10/19 10/10/19 13:12 14:26 15:50 WBC RBC Hgb Hct MCV MCH MCHC RDW Plt Count Seg Neutrophils % Sodium 141.8 Potassium 3.6 Chloride 102 Carbon Dioxide 26 Anion Gap 14 BUN 60 H D Creatinine 7.03 H Est GFR ( Amer) 9 L Glucose 114 H Lactic Acid 1.6 Calcium 8.0 L Magnesium Urine Color YELLOW Urine Appearance CLEAR Urine pH 8.0 Ur Specific [place] 1.009 Urine Protein 30 H Urine Glucose (UA) 150 H Urine Ketones NEGATIVE Urine Blood NEGATIVE Urine Nitrite NEGATIVE Ur Leukocyte Esterase NEGATIVE Urine WBC (Auto) 0 Urine RBC (Auto) 0 10/11/19 10/11/19 05:30 05:30 WBC 7.6 RBC 3.05 L Hgb 10.3 L Hct 30.3 L MCV 99 H MCH 33.8 H MCHC 34.0 RDW 18.1 H Plt Count 114 L Seg Neutrophils % 52.1 Sodium 138.4 Potassium 3.6 Chloride 102 Carbon Dioxide 24 Anion Gap 12 BUN 66 H Creatinine 8.38 H Est GFR ( Amer) 7 L Glucose 90 Lactic Acid Calcium 7.7 L Magnesium 1.4 L Urine Color Urine Appearance Urine pH Ur Specific [place] Urine Protein Urine Glucose (UA) Urine Ketones Urine Blood Urine Nitrite Ur Leukocyte Esterase Urine WBC (Auto) Urine RBC (Auto) Impressions: Chest X-Ray 10/10/19 00:00 IMPRESSION: Stable cardiomegaly. No other significant findings. Assessment & Plan - Diagnosis (1) Septic arthritis of knee, right Qualifiers: Septic arthritis organism: due to other bacteria Qualified Code(s): M00.861 - Arthritis due to other bacteria, right knee Is this a current diagnosis for this admission?: Yes Plan: Continues to IV antibiotics follow with the orthopedic consult for ID (2) Coronary artery disease Qualifiers: Coronary Disease-Associated Artery/Lesion type: bypass graft Associated angina: without angina Is this a current diagnosis for this admission?: Yes Plan: Get the EKG and consult to Dr. José for possible preop evaluations (3) ESRD (end stage renal disease) on dialysis Is this a current diagnosis for this admission?: Yes Plan: Currently on hemodialysis consult the nephrology (4) Hypertension Qualifiers: Hypertension type: essential hypertension Qualified Code(s): I10 - Essential (primary) hypertension Is this a current diagnosis for this admission?: Yes Plan: Currently all stable (5) Multiple myeloma Qualifiers: Multiple myeloma remission status: not in remission Qualified Code(s): C90.00 - Multiple myeloma not having achieved remission Is this a current diagnosis for this admission?: Yes Plan: We will consult the Dr. pascual for continued care (6) Pseudomonal arthritis Is this a current diagnosis for this admission?: Yes Plan: Start the patient on IV cefepime and I discussed with the Dr. red also given gentamicin to the dialysis - Time Time Spent with patient: 25-34 minutes Level of Care: IMCU Medications reviewed and adjusted accordingly: Yes Anticipated discharge: Home Within: Other - Plan Summary Plan Summary: Continues to IV antibiotic
--- NOTE | 2019-10-11 19:19 | XCELERA REPORT ---
[address] [address] Transthoracic Echocardiogram Report Name: UGO ROY Age: 84 yrs Gender: Male : 1935 Patient Status: Inpatient Patient Location: [address] [place], [place] [id number] Study Date: 10/11/2019 10:52 AM Height: 64 in Weight: 144 lb BSA: 1.7 m2 Procedure: A complete two-dimensional transthoracic echocardiogram was performed (2D, M-mode, spectral and color flow Doppler). The study was technically adequate with some images being suboptimal in quality. Reason For Study: CAD Ordering Physician: RAMONA MAGALLANES Performed By: Lorraine Bowling Interpretation Summary LV EF is 40-45% Left ventricular systolic function is mild to moderately reduced. There is mild concentric left ventricular hypertrophy. The left ventricle is grossly normal size. Doppler measurements suggest pseudonormalized left ventricular relaxation, which is associated with grade II/IV or mild to moderate diastolic dysfunction There is basal inferior wall hypokinesis There is apical wall mild hypokinesis Right ventricular function cannot be assessed due to poor image quality. The left atrium is moderately dilated. There is a mild to moderate amount of mitral regurgitation There is no mitral valve stenosis. There is a trace to mild amount of aortic regurgitation There is no aortic valve stenosis There is a trace to mild amount of tricuspid regurgitation Tricuspid regurgitation jet envelope not well defined to measure RV systolic pressure accurately. The inferior vena cava appeared normal and decreased > 50% with respiration (RAP 5-10 mmHg) There is no pericardial effusion. MMode/2D Measurements & Calculations IVSd: 1.0 cm LVIDd: 7.0 cm FS: 19.7 % Ao root diam: 3.1 cm LVIDs: 5.6 cm EDV(Teich): 252.5 ml Ao root area: 7.8 cm2 LVPWd: 1.1 cm ESV(Teich): 153.3 ml EF(Teich): 39.3 % Doppler Measurements & Calculations MV E max manju: MV dec slope: Ao V2 max: AI max manju: 122.9 cm/sec 638.9 cm/sec2 182.0 cm/sec 289.1 cm/sec MV A max manju: MV dec time: Ao max PG: AI max P.4 mmHg 84.4 cm/sec 0.19 sec 13.3 mmHg AI dec slope: MV E/A: 1.5 194.5 cm/sec2 AI P1/2t: 435.4 msec LV V1 max PG: PA V2 max: PI end-d manju: TR max manju: 5.8 mmHg 99.4 cm/sec 156.0 cm/sec 196.6 cm/sec LV V1 max: PA max P.9 mmHg TR max P.5 mmHg 120.1 cm/sec Left Ventricle The left ventricle is grossly normal size. There is mild concentric left ventricular hypertrophy. Left ventricular systolic function is mild to moderately reduced. LV EF is 40-45%. Doppler measurements suggest pseudonormalized left ventricular relaxation, which is associated with grade II/IV or mild to moderate diastolic dysfunction. There is basal inferior wall hypokinesis. There is apical wall mild hypokinesis. Right Ventricle The right ventricle is grossly normal size. Right ventricular function cannot be assessed due to poor image quality. Atria The right atrium is normal in size. The left atrium is moderately dilated. Interarterial septum not well visualized and not well dopplered. Cannot comment on ASD/PFO presence. Mitral Valve The mitral valve leaflets are sclerotic and show some degree of functional abnormality. There is no mitral valve stenosis. There is a mild to moderate amount of mitral regurgitation. Aortic Valve The aortic valve is sclerotic and shows some degree of functional abnormality. There is no aortic valve stenosis. There is a trace to mild amount of aortic regurgitation. Tricuspid Valve The tricuspid valve is not well visualized, but is grossly normal. There is no tricuspid stenosis. There is a trace to mild amount of tricuspid regurgitation. Tricuspid regurgitation jet envelope not well defined to measure RV systolic pressure accurately. Pulmonic Valve The pulmonic valve is not well visualized. Great Vessels The aortic root is not well visualized. The inferior vena cava appeared normal and decreased > 50% with respiration (RAP 5-10 mmHg). Effusions There is no pericardial effusion. : RAMONA MAGALLANES Shyamal
[2019-10-11] MEDS: CEFEPIME HCL 0.5 GM in NORMAL SALINE 25 ML IV SCH (21:45)
[2019-10-11] MEDS ORDERED: CEFEPIME HCL 0.5 GM in DEXTROSE 5%-WATER 25 ML IV SCH (22:00)
[2019-10-11 22:26] LABS: CHOLESTEROL 102.56 mg/dL (0-200); TRIGLYCERIDES 95 mg/dL (<150)
[2019-10-11 22:37] LABS: DIRECT LDL 45 mg/dL (<100)
--- NOTE | 2019-10-12 00:24 | Progress Note ---
Provider Note Provider Note: [facility] Telephone Consultation Chart reviewed. Patient is an 84-year-old man with multiple comorbid conditions including multiple myeloma, ESRD on HD who was recently admitted due to Pseudomonas bacteremia from an infected port which was already removed in September 21. Patient was complaining of right knee pain for few months but redness and swelling, also pain worsened for which he was evaluated by ortho. He had an arthrocentesis on 10/02 and synovial culture was positive for Pseudomonas. He was adviced to come to the hospital for evaluation and definitive treatment as he has bilateral prosthetic knees. On admission, he was not toxic, he had blood cultures drawn yesterday which remain negative in 24 hr. He has been afebrile and HD stable. He was evaluated by orthopedics, nephrology as well. He was started on cefepime daily and gentamicin with hemodialysis. ID consulted for recommendations. PMH: Multiple Myeloma ESRD on HD Hypertension CAD PSH: Bilateral Knee replacement Allergies: No Known Allergies Allergy (Verified 10/09/19 11:50) Medications: Calcium Acetate [Phoslo 667 Mg Capsule] 1,334 mg PO MEALS 10/10/19 [History] Diclofenac Sodium 4 gm TOP QIDP PRN 10/10/19 [History] Furosemide [Lasix 20 mg Tablet] 20 mg PO DAILY 10/10/19 [History] Lenalidomide [Revlimid] 5 mg PO Q2D 10/10/19 [History] Vit B Comp No.3/Folic/C/Biotin [Sarah-Roberth Rx Tablet] 1 each PO DAILY 10/10/19 [History] Antibiotics: Cefepime Gentamicin Vital Signs: Temp Pulse Resp BP Pulse Ox 97.7 F 64 16 131/51 H 97 10/11/19 15:43 10/11/19 19:00 10/11/19 15:43 10/11/19 15:43 10/11/19 15:43 Intake & Output 10/10/19 10/11/19 10/12/19 06:59 06:59 06:59 Intake Total 100 655 Balance 100 655 Weight 66.4 kg Weight/Height Weight 66.4 kg Height 5 ft 4 in Laboratories: 10/11/19 05:30 10/11/19 05:30 MCV 99 fl (80-97) H 10/11/19 05:30 MCH 33.8 pg (27.0-33.4) H 10/11/19 05:30 MCHC 34.0 g/dL (32.0-36.0) 10/11/19 05:30 RDW 18.1 % (11.5-14.0) H 10/11/19 05:30 Seg Neutrophils % 52.1 % (42-78) 10/11/19 05:30 Chloride 102 mmol/L (98-107) 10/11/19 05:30 Carbon Dioxide 24 mmol/L (22-30) 10/11/19 05:30 Anion Gap 12 (5-19) 10/11/19 05:30 Est GFR ( Amer) 7 (>60) L 10/11/19 05:30 Glucose 90 mg/dL (75-110) 10/11/19 05:30 Lactic Acid 1.6 mmol/L (0.7-2.1) 10/10/19 14:26 Calcium 7.7 mg/dL (8.4-10.2) L 10/11/19 05:30 Magnesium 1.4 mg/dL (1.6-2.3) L 10/11/19 05:30 Triglycerides 95 mg/dL (<150) 10/11/19 05:30 Cholesterol 102.56 mg/dL (0-200) 10/11/19 05:30 LDL Cholesterol Direct 45 mg/dL (<100) 10/11/19 05:30 VLDL Cholesterol 19.0 mg/dL (10-31) 10/11/19 05:30 HDL Cholesterol 35 mg/dL (>40) L 10/11/19 05:30 Urine Color YELLOW 10/10/19 15:50 Urine Appearance CLEAR 10/10/19 15:50 Urine pH 8.0 (5.0-9.0) 10/10/19 15:50 Ur Specific Anna 1.009 10/10/19 15:50 Urine Protein 30 mg/dL (NEGATIVE) H 10/10/19 15:50 Urine Glucose (UA) 150 mg/dL (NEGATIVE) H 10/10/19 15:50 Urine Ketones NEGATIVE mg/dL (NEGATIVE) 10/10/19 15:50 Urine Blood NEGATIVE (NEGATIVE) 10/10/19 15:50 Urine Nitrite NEGATIVE (NEGATIVE) 10/10/19 15:50 Ur Leukocyte Esterase NEGATIVE (NEGATIVE) 10/10/19 15:50 Urine WBC (Auto) 0 /HPF 10/10/19 15:50 Urine RBC (Auto) 0 /HPF 10/10/19 15:50 Microbiology: Blood culture 05/04/19 Pseudomonas panS 09/21 Pseudomonas panS (catheter/port) 10/09 No growth to date Synovial Fluid Culture: 10/02 Pseudomonas panS Assessment and recommendations: Patient evaluated due to Pseudomonas right prosthetic knee infection in the setting of port related bacteremia. Patient was bacteremic with Pseudomonas from the port and seeded his right prosthetic knee. Blood cultures are still in process, but he is high risk for systemic infection due to immunosuppression. He is also high risk for seeding his other knee if adequate source control is not achieved. Treatment options would include a 2 stage revision, one stage revision or washout with retention of the prosthesis. This is an orthopedics decision as it will depend on the surgical risks considering his comorbidities. From ID standpoint, a 2 stage revision has the highest chance to eradicate the infection, agree with orthopedics. He would have removal of the prosthesis, would receive 6 weeks of antibiotics and then implantation of a new prosthesis without the need for antibiotic suppressive therapy that can cause further complications as CDI, tendon rupture, QT prolongation, etc. A one stage revision will help control the infection, but patient might still need suppressive therapy. I&D alone with prosthesis retention represents the highest risk as he will need chronic suppressive therapy and still has the risk of seeding his other prosthesis. In terms of antibiotic therapy, this is a pansusceptible Pseudomonas, Cefepime monotherapy should suffice. Will follow final plan to g alicia recommendations regarding duration of therapy. Will recommend obtaining a baseline ESR and CRP. Jessica Brown MD [facility] Infectious Disease [phone]
[2019-10-12] MEDS ORDERED: NORMAL SALINE 1000 ML 1,000 ML IV PRN (05:00)
[2019-10-12 06:22] LABS: ABSOLUTE BASOPHILS # (AUTO) 0.1 10^3/uL (0.0-0.2); ABSOLUTE EOSINOPHILS # (AUTO) 0.3 10^3/uL (0.0-0.6); ABSOLUTE LYMPHOCYTES (AUTO) 2.4 10^3/uL (0.5-4.7); ABSOLUTE NEUT (AUTO) 5.6 10^3/uL (1.7-8.2); BASOPHILS % (AUTO) 1.3 % (0-2); EOSINOPHILS % (AUTO) 2.9 % (0-6); HEMATOCRIT 28.3 % (37.9-51.0); HEMOGLOBIN 9.5 g/dL (13.5-17.0); LYMPHOCYTES % (AUTO) 25.7 % (13-45); MEAN CORPUSCULAR HEMOGLOBIN 33.7 pg (27.0-33.4); MEAN CORPUSCULAR HGB CONC 33.7 g/dL (32.0-36.0); MEAN CORPUSCULAR VOLUME 100 fl (80-97); MONOCYTES % (AUTO) 10.7 % (3-13); PLATELET COUNT 110 10^3/uL (150-450); RED BLOOD COUNT 2.83 10^6/uL (4.35-5.55); RED CELL DISTRIBUTION WIDTH 17.5 % (11.5-14.0); SEGMENTED NEUTROPHILS % (AUTO) 59.4 % (42-78); TOTAL CELLS COUNTED % (AUTO) 100 %; WHITE BLOOD COUNT 9.5 10^3/uL (4.0-10.5)
[2019-10-12 06:47] LABS: ANION GAP 13 (5-19); BLOOD UREA NITROGEN 80 mg/dL (7-20); CARBON DIOXIDE 21 mmol/L (22-30); CHLORIDE 106 mmol/L (98-107); GLUCOSE 89 mg/dL (75-110)
--- NOTE | 2019-10-12 07:21 | PDOC PROGRESS REPORT ---
Subjective Progress Note for:: 10/12/19 Reason For Visit: LEFT KNEE SEPSIS,ESRD,CAD 84-year-old male with myeloma and dialysis dependent renal failure admitted for a right total knee periprosthetic infection with Pseudomonas. Patient reports some improvement since being hospitalized on started on antibiotic therapy. Physical Exam Vital Signs: Temp Pulse Resp BP Pulse Ox 36.5 C 62 16 131/51 H 97 10/11/19 15:43 10/12/19 02:00 10/11/19 15:43 10/11/19 15:43 10/11/19 15:43 Intake & Output 10/11/19 10/12/19 10/13/19 06:59 06:59 06:59 Intake Total 100 655 Balance 100 655 Weight 66.4 kg 66.7 kg General appearance: PRESENT: no acute distress Head exam: PRESENT: normocephalic Respiratory exam: PRESENT: unlabored Cardiovascular exam: PRESENT: RRR Musculoskeletal exam: PRESENT: other - He seems less tense today but there is considerable discomfort associate with passive range of motion. Neurological exam: PRESENT: alert, awake, oriented to person, oriented to place, oriented to time, oriented to situation. ABSENT: motor sensory deficit Results Laboratory Results: 10/12/19 05:37 10/12/19 05:37 10/11/19 10/12/19 10/12/19 05:30 05:37 05:37 WBC 9.5 RBC 2.83 L Hgb 9.5 L Hct 28.3 L MCV 100 H MCH 33.7 H MCHC 33.7 RDW 17.5 H Plt Count 110 L Seg Neutrophils % 59.4 Sodium 139.9 Potassium 4.0 Chloride 106 Carbon Dioxide 21 L Anion Gap 13 BUN 80 H Creatinine 9.66 H Est GFR ( Amer) 6 L Glucose 89 Calcium 8.0 L Triglycerides 95 Cholesterol 102.56 LDL Cholesterol Direct 45 VLDL Cholesterol 19.0 HDL Cholesterol 35 L Impressions: Chest X-Ray 10/10/19 00:00 IMPRESSION: Stable cardiomegaly. No other significant findings. Status: Imported from PACS Assessment & Plan - Diagnosis (1) Septic arthritis of knee, right Qualifiers: Septic arthritis organism: due to other bacteria Qualified Code(s): M00.861 - Arthritis due to other bacteria, right knee Is this a current diagnosis for this admission?: Yes Plan: Patient and I have again reviewed therapeutic options including nonoperative therapy, washout and polyethylene exchange, one stage reconstruction, two-stage reconstruction. Tentative plan will be to continue to continue to observe over Tuesday and Tuesday. If there is not a dramatic improvement in the patient's symptoms the plan will be to proceed with an I&D and polyethylene exchange on Tuesday under choice anesthesia. - Time Time Spent with patient: 15-24 minutes Anticipated discharge: Other Within: Other
[2019-10-12] MEDS: CALCIUM ACETATE 667 MG CAPSULE PO SCH ×3 (08:33→17:57)
--- NOTE | 2019-10-12 08:58 | PDOC CONSULTATION ---
Consultation Consult Date: 10/12/19 Attending physician:: MIGUEL FRAZIER Provider Consulted: MAGO BUTLER Consult reason:: Multiple myeloma, here with Pseudomonas infection of the knee History of Present Illness Admission Date/PCP: 10/10/19 11:39 MIGUEL FRAZIER MD Patient complains of: Right knee pain, history of port infection History of Present Illness: UGO ROY is a 84 year old male with known history of multiple myeloma, history of recent port infection with Pseudomonas, unfortunately comes in with right knee pain and aspiration of the right knee indicates also Pseudomonas infection, he is currently on appropriate antibiotics now IV, ID has reviewed chart as well and has made some recommendations. Orthopedic surgery has made recommendations and currently the plan is to pursue washout of the right knee initially. Continue with IV antibiotics thereafter. Past Medical History Cardiac Medical History: Reports: Coronary Artery Disease - quad bypass, Myocardial Infarction - 1992, Hyperlipidema, Hypertension Pulmonary Medical History: Reports: Asthma - As a child Denies: Bronchitis, Chronic Obstructive Pulmonary Disease (COPD), Pneumonia Neurological Medical History: Denies: Seizures Renal/ Medical History: Reports: End Stage Renal Disease Malignancy Medical History: Reports: Bone Cancer Musculoskeltal Medical History: Reports: Arthritis Psychiatric Medical History: Denies: Depression Hematology: Denies: Anemia Past Surgical History Past Surgical History: Reports: Orthopedic Surgery - bilateral knees Social History Information Source: Patient Lives with: Alone Smoking Status: Former Smoker Electronic Cigarette use?: No Last Time Smoked: 1966 Frequency of Alcohol Use: None Hx Recreational Drug Use: No Drugs: None Hx Prescription Drug Abuse: No - Advance Directive Resuscitation Status: Full Code Family History Family History: Reviewed & Not Pertinent Parental Family History Reviewed: Yes Children Family History Reviewed: Yes Sibling(s) Family History Reviewed.: Yes Medication/Allergy Home Medications: Atorvastatin Calcium 80 mg PO DAILY 02/02/16 Finasteride [Proscar 5 mg Tablet] 5 mg PO DAILY 02/02/16 Amlodipine Besylate 5 mg PO DAILY 10/31/17 Metoprolol Succinate [Toprol Xl] 25 mg PO DAILY 10/31/17 Omeprazole 40 mg PO DAILYP PRN 10/31/17 Calcium Acetate [Phoslo 667 Mg Capsule] 1,334 mg PO MEALS 10/10/19 Diclofenac Sodium 4 gm TOP QIDP PRN 10/10/19 Furosemide [Lasix 20 mg Tablet] 20 mg PO DAILY 10/10/19 Lenalidomide [Revlimid] 5 mg PO Q2D 10/10/19 Vit B Comp No.3/Folic/C/Biotin [Sarah-Roberth Rx Tablet] 1 each PO DAILY 10/10/19 Allergies/Adverse Reactions: No Known Allergies Allergy (Verified 10/09/19 11:50) Review of Systems Constitutional: ABSENT: chills, fever(s), headache(s), weight gain, weight loss Eyes: ABSENT: visual disturbances Ears: ABSENT: hearing changes Cardiovascular: ABSENT: chest pain, dyspnea on exertion, edema, orthropnea, palpitations Respiratory: ABSENT: cough, hemoptysis Gastrointestinal: ABSENT: abdominal pain, constipation, diarrhea, hematemesis, hematochezia, nausea, vomiting Genitourinary: ABSENT: dysuria, hematuria Musculoskeletal: ABSENT: joint swelling Integumentary: ABSENT: rash, wounds Neurological: ABSENT: abnormal gait, abnormal speech, confusion, dizziness, focal weakness, syncope Psychiatric: ABSENT: anxiety, depression, homidical ideation, suicidal ideation Endocrine: ABSENT: cold intolerance, heat intolerance, polydipsia, polyuria Hematologic/Lymphatic: ABSENT: easy bleeding, easy bruising Physical Exam Vital Signs: Temp Pulse Resp BP Pulse Ox 98.4 F 61 14 138/54 H 96 10/12/19 03:17 10/12/19 07:00 10/12/19 03:17 10/12/19 03:17 10/12/19 03:17 Intake & Output 10/11/19 10/12/19 10/13/19 06:59 06:59 06:59 Intake Total 100 655 Balance 100 655 Weight 66.4 kg 66.7 kg General appearance: PRESENT: no acute distress, well-developed, well-nourished Head exam: PRESENT: atraumatic, normocephalic Eye exam: PRESENT: conjunctiva pink, EOMI, PERRLA. ABSENT: scleral icterus Ear exam: PRESENT: normal external ear exam Mouth exam: PRESENT: moist, tongue midline Neck exam: ABSENT: carotid bruit, JVD, lymphadenopathy, thyromegaly Respiratory exam: PRESENT: clear to auscultation lucien. ABSENT: rales, rhonchi, wheezes Cardiovascular exam: PRESENT: RRR. ABSENT: diastolic murmur, rubs, systolic murmur Pulses: PRESENT: normal dorsalis pedis pul Vascular exam: PRESENT: normal capillary refill GI/Abdominal exam: PRESENT: normal bowel sounds, soft. ABSENT: distended, guarding, mass, organolmegaly, rebound, tenderness Rectal exam: PRESENT: deferred Extremities exam: PRESENT: full ROM. ABSENT: calf tenderness, clubbing, pedal edema Neurological exam: PRESENT: alert, awake, oriented to person, oriented to place, oriented to time, oriented to situation, CN II-XII grossly intact. ABSENT: motor sensory deficit Psychiatric exam: PRESENT: appropriate affect, normal mood. ABSENT: homicidal ideation, suicidal ideation Skin exam: PRESENT: dry, intact, warm. ABSENT: cyanosis, rash Results Laboratory Results: 10/12/19 05:37 10/12/19 05:37 10/11/19 10/12/19 10/12/19 05:30 05:37 05:37 WBC 9.5 RBC 2.83 L Hgb 9.5 L Hct 28.3 L MCV 100 H MCH 33.7 H MCHC 33.7 RDW 17.5 H Plt Count 110 L Seg Neutrophils % 59.4 Sodium 139.9 Potassium 4.0 Chloride 106 Carbon Dioxide 21 L Anion Gap 13 BUN 80 H Creatinine 9.66 H Est GFR ( Amer) 6 L Glucose 89 Calcium 8.0 L Triglycerides 95 Cholesterol 102.56 LDL Cholesterol Direct 45 VLDL Cholesterol 19.0 HDL Cholesterol 35 L Impressions: Chest X-Ray 10/10/19 00:00 IMPRESSION: Stable cardiomegaly. No other significant findings. Assessment & Plan - Diagnosis (1) Septic arthritis of knee, right Qualifiers: Septic arthritis organism: due to other bacteria Qualified Code(s): M00.861 - Arthritis due to other bacteria, right knee Is this a current diagnosis for this admission?: Yes Plan: Patient doing better in terms of pain, at this point given his comorbidities and with the history of myeloma I am unsure if he would be a good candidate for a two-step process of knee replacement, it may be that washout may be the only thing that we can do, I discussed with the patient, he understands this, so continue with IV antibiotics and probable washout on Tuesday. (2) Multiple myeloma Qualifiers: Multiple myeloma remission status: not in remission Qualified Code(s): C90.00 - Multiple myeloma not having achieved remission Is this a current diagnosis for this admission?: Yes Plan: Holding all therapy for now, unsure if we can get back to therapy given all these issues (3) Anemia Qualifiers: Anemia type: due to chronic kidney disease Chronic kidney disease stage: on chronic dialysis Qualified Code(s): N18.6 - End stage renal disease; D63.1 - Anemia in chronic kidney disease; Z99.2 - Dependence on renal dialysis Is this a current diagnosis for this admission?: Yes Plan: Multifactorial anemia, hemoglobin is in the 9 range currently hold on transfusion until it gets under 7 - Time Time Spent: Greater than 70 Minutes - Inpatient Certification Based on my medical assessment, after consideration of the patient's comorbidities, presenting symptoms, or acuity I expect that the services needed warrant INPATIENT care.: Yes I certify that my determination is in accordance with my understanding of Medicare's requirements for reasonable and necessary INPATIENT services [42 CFR 412.3e].: Yes Medical Necessity: Need for IV Antibiotics, Need for Surgery, Risk of Complication if Not Cared For in Hospital
--- NOTE | 2019-10-12 09:23 | PDOC PROGRESS REPORT ---
Subjective Progress Note for:: 10/12/19 Subjective:: Patient is currently doing well Since denied any fever no chills Patient is denied any chest pain no short of breath Reviewed the infectious disease consult and orthopedic consult continues IV cefepime as per the infectious disease recommendations and follow with maribeth car for further plan Patient seen by the Dr. José the cardiology Is currently on hemodialysis Reason For Visit: LEFT KNEE SEPSIS,ESRD,CAD Physical Exam Vital Signs: Temp Pulse Resp BP Pulse Ox 98.4 F 61 14 138/54 H 96 10/12/19 03:17 10/12/19 07:00 10/12/19 03:17 10/12/19 03:17 10/12/19 03:17 Intake & Output 10/11/19 10/12/19 10/13/19 06:59 06:59 06:59 Intake Total 100 655 Balance 100 655 Weight 66.4 kg 66.7 kg General appearance: PRESENT: no acute distress, well-developed, well-nourished Head exam: PRESENT: atraumatic, normocephalic Eye exam: PRESENT: conjunctiva pink, EOMI, PERRLA. ABSENT: scleral icterus Ear exam: PRESENT: normal external ear exam Mouth exam: PRESENT: moist, tongue midline Neck exam: PRESENT: full ROM. ABSENT: carotid bruit, JVD, lymphadenopathy, thyromegaly Respiratory exam: PRESENT: clear to auscultation lucien Cardiovascular exam: PRESENT: RRR. ABSENT: diastolic murmur, rubs, systolic murmur Pulses: PRESENT: normal dorsalis pedis pul, +2 pedal pulses bilateral Vascular exam: PRESENT: normal capillary refill GI/Abdominal exam: PRESENT: normal bowel sounds, soft. ABSENT: distended, guarding, mass, organolmegaly, rebound, tenderness Rectal exam: PRESENT: deferred Extremities exam: ABSENT: pedal edema Musculoskeletal exam: PRESENT: ambulatory Neurological exam: PRESENT: alert, awake, oriented to person, oriented to place, oriented to time, oriented to situation, CN II-XII grossly intact. ABSENT: motor sensory deficit Psychiatric exam: PRESENT: appropriate affect, normal mood. ABSENT: homicidal ideation, suicidal ideation Skin exam: PRESENT: dry, intact, warm. ABSENT: cyanosis, rash Results Laboratory Results: 10/12/19 05:37 10/12/19 05:37 10/11/19 10/12/19 10/12/19 05:30 05:37 05:37 WBC 9.5 RBC 2.83 L Hgb 9.5 L Hct 28.3 L MCV 100 H MCH 33.7 H MCHC 33.7 RDW 17.5 H Plt Count 110 L Seg Neutrophils % 59.4 Sodium 139.9 Potassium 4.0 Chloride 106 Carbon Dioxide 21 L Anion Gap 13 BUN 80 H Creatinine 9.66 H Est GFR ( Amer) 6 L Glucose 89 Calcium 8.0 L Triglycerides 95 Cholesterol 102.56 LDL Cholesterol Direct 45 VLDL Cholesterol 19.0 HDL Cholesterol 35 L 10/10/19 15:50 Clean Catch Midstream Urine Culture - Final NO GROWTH 2 DAYS Impressions: Chest X-Ray 10/10/19 00:00 IMPRESSION: Stable cardiomegaly. No other significant findings. Assessment & Plan - Diagnosis (1) Septic arthritis of knee, right Qualifiers: Septic arthritis organism: due to other bacteria Qualified Code(s): M00.861 - Arthritis due to other bacteria, right knee Is this a current diagnosis for this admission?: Yes Plan: Continues to IV antibiotic as per infectious disease recommendations (2) Coronary artery disease Qualifiers: Coronary Disease-Associated Artery/Lesion type: bypass graft Associated angina: without angina Is this a current diagnosis for this admission?: Yes Plan: Get the EKG and consult to Dr. José for possible preop evaluations (3) ESRD (end stage renal disease) on dialysis Is this a current diagnosis for this admission?: Yes Plan: Currently on hemodialysis consult the nephrology (4) Hypertension Qualifiers: Hypertension type: essential hypertension Qualified Code(s): I10 - Essential (primary) hypertension Is this a current diagnosis for this admission?: Yes Plan: Currently all stable (5) Multiple myeloma Qualifiers: Multiple myeloma remission status: not in remission Qualified Code(s): C90.00 - Multiple myeloma not having achieved remission Is this a current diagnosis for this admission?: Yes Plan: We will consult the Dr. pascual for continued care (6) Pseudomonal arthritis Is this a current diagnosis for this admission?: Yes Plan: He needs IV antibiotic - Time Time Spent with patient: 15-24 minutes Level of Care: IMCU Medications reviewed and adjusted accordingly: Yes Anticipated discharge: Other Within: Other - Plan Summary Plan Summary: Patient's plan for the surgery per Ortho on a Tuesday Continue current medication
--- NOTE | 2019-10-12 09:52 | PDOC PROGRESS REPORT ---
Subjective Progress Note for:: 10/11/19 Subjective:: Patient was seen yesterday on evening rounds. He was admitted for possible septic arthritis of the replaced right knee. Patient however denied any chest pain. He has some shortness of breath. Patient noted to have an abnormal EKG. He is noted to have cardiomegaly on chest x-ray. It is felt that patient may end up needing knee surgery. I was therefore asked to evaluate patient. 10/11/2019: Patient seen in the evening. No significant change from before. Blood cultures so far been negative. 2D echo shows mild to moderately depressed LVEF with evident to suggest CAD. Valves seems thickened but without any definite vegetations. Reason For Visit: LEFT KNEE SEPSIS,ESRD,CAD Physical Exam Vital Signs: Temp Pulse Resp BP Pulse Ox 97.7 F 62 16 131/51 H 97 10/11/19 15:43 10/11/19 15:43 10/11/19 15:43 10/11/19 15:43 10/11/19 15:43 Intake & Output 10/10/19 10/11/19 10/12/19 06:59 06:59 06:59 Intake Total 100 630 Balance 100 630 Weight 66.4 kg Exam: GENERAL: well-nourished and in no acute distress. Alert and oriented x3 HEAD: Atraumatic, normocephalic. EYES: NÉSTOR, sclera anicteric, conjunctiva are normal. ENT: Moist mucous membranes. No oral ulcerations or bleeding gums noted. No obvious ear, nose or throat abnormalities noted. NECK: supple without lymphadenopathy. Trachea is central. No cervical or axillary lymphadenopathy noted. Carotids are 2+, JVD WNL LUNGS: Breath sounds clear bilaterally. No wheezes rales or rhonchi noted. No significant dullness noted on percussion. CHEST: Palpation of the chest wall shows no significant chest wall tenderness. IV port noted for chemotherapy. HEART: [place] [employer], No PSH, 1/6 ZEFERINO aortic area, 1/6 fang systolic murmur mitral area, no rubs, no gallops. ABDOMEN: Soft, no significant tenderness appreciated, normoactive bowel sounds. No guarding, no rebound. No rigidity noted . No masses appreciated. EXTREMITIES: Pedal pulses are 1-2+, no calf tenderness noted. No clubbing or cyanosis. negative pedal edema noted. Fistula noted in the right arm. Right knee swollen and tender as well as slightly warm. NEUROLOGICAL: Focused neurological exam showed no significant neurologic deficit. Normal speech, no focal weakness appreciated. PSYCH: Normal mood, normal affect. Judgment and insight within normal limits. SKIN: No significant ecchymosis, skin is noted to be warm. MUSCULOSKELETAL EXAM: No significant acute joint swelling noted. Results Laboratory Results: 10/11/19 05:30 10/11/19 05:30 10/11/19 10/11/19 05:30 05:30 WBC 7.6 RBC 3.05 L Hgb 10.3 L Hct 30.3 L MCV 99 H MCH 33.8 H MCHC 34.0 RDW 18.1 H Plt Count 114 L Seg Neutrophils % 52.1 Sodium 138.4 Potassium 3.6 Chloride 102 Carbon Dioxide 24 Anion Gap 12 BUN 66 H Creatinine 8.38 H Est GFR ( Amer) 7 L Glucose 90 Calcium 7.7 L Magnesium 1.4 L Impressions: Chest X-Ray 10/10/19 00:00 IMPRESSION: Stable cardiomegaly. No other significant findings. Assessment & Plan - Diagnosis (1) Septic arthritis of knee, right Qualifiers: Septic arthritis organism: due to other bacteria Qualified Code(s): M00.861 - Arthritis due to other bacteria, right knee Is this a current diagnosis for this admission?: Yes (2) Coronary artery disease Qualifiers: Coronary Disease-Associated Artery/Lesion type: bypass graft Associated angina: without angina Is this a current diagnosis for this admission?: Yes (3) Diabetes mellitus type 2 in nonobese Is this a current diagnosis for this admission?: Yes (4) ESRD (end stage renal disease) on dialysis Is this a current diagnosis for this admission?: Yes (5) Hypertension Qualifiers: Hypertension type: essential hypertension Qualified Code(s): I10 - Esse ntial (primary) hypertension Is this a current diagnosis for this admission?: Yes - Notes Notes: 2D echo results reviewed with the patient. Have ordered lipid panel for proper management of dyslipidemia. No new recommendations. As noted above patient will be somewhat above average risk for any surgery but not in the prohibitive range. - Time Time with patient: Greater than 35 minutes
[2019-10-12] MEDS ORDERED: EPOETIN ALFA-EPBX 10,000 UNIT/ML VIAL (RENAL) IV ONE (10:00)
[2019-10-12] MEDS: DOCUSATE SODIUM 100 MG CAPSULE PO SCH ×2 (12:39→17:57)
[2019-10-12] MEDS: METOPROLOL SUCCINATE 25 MG TAB.SR.24H PO SCH (12:44)
[2019-10-12] MEDS: FUROSEMIDE 20 MG TABLET PO SCH (12:44)
[2019-10-12] MEDS: ATORVASTATIN CALCIUM 80 MG TABLET PO SCH (12:44)
[2019-10-12] MEDS: FINASTERIDE 5 MG TABLET PO SCH (12:45)
[2019-10-12] MEDS: VITAMIN B COMPLEX TABLET PO SCH (12:45)
[2019-10-12] MEDS: AMLODIPINE BESYLATE 5 MG TABLET PO SCH (12:45)
[2019-10-12] MEDS: PANTOPRAZOLE SODIUM 40 MG TABLET.DR PO SCH (12:45)
[2019-10-12] MEDS ORDERED: GENTAMICIN SULFATE 60 MG in DEXTROSE 5%-WATER 100 ML IV SCH (18:00)
--- NOTE | 2019-10-12 18:43 | PDOC PROGRESS REPORT ---
Subjective Progress Note for:: 10/12/19 Subjective:: I am seeing the patient during dialysis this morning. Aside from very minimal right knee pain and limitation of motion of right knee with swelling he does not really have much other new complaints. He has been tolerating dialysis and so far has not had any complaints no complications during treatment. Reason For Visit: LEFT KNEE SEPSIS,ESRD,CAD Physical Exam Vital Signs: Temp Pulse Resp BP Pulse Ox 98.4 F 61 14 138/54 H 96 10/12/19 03:17 10/12/19 07:00 10/12/19 03:17 10/12/19 03:17 10/12/19 03:17 Intake & Output 10/11/19 10/12/19 10/13/19 06:59 06:59 06:59 Intake Total 100 655 Balance 100 655 Weight 66.4 kg 66.7 kg Vitals during dialysis: Blood pressure of 144/63, pulse rate of 63, blood flow rate of 450 mL/min and dialysate flow rate of 800 mL/min. Exam: General appearance: PRESENT: no acute distress, cooperative, well-developed, well-nourished Head exam: PRESENT: atraumatic, normocephalic Eye exam: PRESENT: conjunctiva slightly pale, PERRLA. ABSENT: scleral icterus Neck exam: ABSENT: JVD Respiratory exam: PRESENT: Normal breath sounds. ABSENT: crackles, rales, rhonchi, unlabored, wheezes Cardiovascular exam: PRESENT: Regular rate rhythm -+S1, +S2. ABSENT: diastolic murmur, systolic murmur GI/Abdominal exam: PRESENT: normal bowel sounds, soft. ABSENT: guarding, mass, tenderness Extremities exam: ABSENT: No edema; right knee still swollen and slightly warm to touch with limitation of flexion and extension. Neurological exam: PRESENT: alert, awake, oriented to person, place and time. Skin exam: PRESENT: dry, warm, Results Laboratory Results: 10/12/19 05:37 10/12/19 05:37 10/11/19 10/12/19 10/12/19 05:30 05:37 05:37 WBC 9.5 RBC 2.83 L Hgb 9.5 L Hct 28.3 L MCV 100 H MCH 33.7 H MCHC 33.7 RDW 17.5 H Plt Count 110 L Seg Neutrophils % 59.4 Sodium 139.9 Potassium 4.0 Chloride 106 Carbon Dioxide 21 L Anion Gap 13 BUN 80 H Creatinine 9.66 H Est GFR ( Amer) 6 L Glucose 89 Calcium 8.0 L Triglycerides 95 Cholesterol 102.56 LDL Cholesterol Direct 45 VLDL Cholesterol 19.0 HDL Cholesterol 35 L Impressions: Chest X-Ray 10/10/19 00:00 IMPRESSION: Stable cardiomegaly. No other significant findings. Assessment & Plan - Diagnosis (1) Septic joint of left knee joint Qualifiers: Septic arthritis organism: due to other bacteria Qualified Code(s): M00.862 - Arthritis due to other bacteria, left knee Is this a current diagnosis for this admission?: Yes Plan: Secondary to pseudomonas aeruginosa in the patient with prosthetic hardware. Tentative plan is for patient to undergo washout and poly-ethylene exchange of the right knee on Tuesday. Meanwhile continue IV cefepime, recommend 1 g every 24 hours. The gentamicin trough level is adequate and will re-dose post dialysis treatments. (2) ESRD (end stage renal disease) on dialysis Is this a current diagnosis for this admission?: Yes Plan: We will do dialysis today for 3 hours, using the patient's AV fistula, with 3 potassium bath, blood flow rate of 450 mL per minute, dialysate flow rate of 800 mL per minute, ultrafiltration 2 to 2.5 L as tolerated, no heparin and Procrit with 10,000 units during dialysis intravenously. Patient is being monitored continuously during dialysis treatment. (3) Hypertension Qualifiers: Hypertension type: essential hypertension Qualified Code(s): I10 - Essential (primary) hypertension Is this a current diagnosis for this admission?: Yes Plan: Adequately controlled. Hold blood pressure medication prior to dialysis treatment. (4) Multiple myeloma Qualifiers: Multiple myeloma remission status: not in remission Qualified Code(s): C90.00 - Multiple myeloma not having achieved remission Is this a current diagnosis for this admission?: Yes (5) Pseudomonal arthritis Is this a current diagnosis for this admission?: Yes Plan: On IV cefepime and IV gentamicin for now. (6) Pseudomonas aeruginosa colonization Is this a current diagnosis for this admission?: Yes - Time Time with patient: 15-25 minutes
[2019-10-12] MEDS: CEFEPIME HCL 0.5 GM in NORMAL SALINE 25 ML IV SCH (21:41)
[2019-10-13 03:57] LABS: ABSOLUTE BASOPHILS # (AUTO) 0.1 10^3/uL (0.0-0.2); ABSOLUTE EOSINOPHILS # (AUTO) 0.3 10^3/uL (0.0-0.6); ABSOLUTE LYMPHOCYTES (AUTO) 2.2 10^3/uL (0.5-4.7); ABSOLUTE NEUT (AUTO) 4.1 10^3/uL (1.7-8.2); BASOPHILS % (AUTO) 1.3 % (0-2); EOSINOPHILS % (AUTO) 4.1 % (0-6); HEMATOCRIT 30.3 % (37.9-51.0); HEMOGLOBIN 10.2 g/dL (13.5-17.0); LYMPHOCYTES % (AUTO) 28.3 % (13-45); MEAN CORPUSCULAR HEMOGLOBIN 33.7 pg (27.0-33.4); MEAN CORPUSCULAR HGB CONC 33.8 g/dL (32.0-36.0); MEAN CORPUSCULAR VOLUME 100 fl (80-97); MONOCYTES % (AUTO) 12.9 % (3-13); PLATELET COUNT 107 10^3/uL (150-450); RED BLOOD COUNT 3.04 10^6/uL (4.35-5.55); RED CELL DISTRIBUTION WIDTH 18.4 % (11.5-14.0); SEGMENTED NEUTROPHILS % (AUTO) 53.4 % (42-78); TOTAL CELLS COUNTED % (AUTO) 100 %; WHITE BLOOD COUNT 7.7 10^3/uL (4.0-10.5)
[2019-10-13 04:22] LABS: ANION GAP 11 (5-19); CALCIUM 8.1 mg/dL (8.4-10.2); CARBON DIOXIDE 28 mmol/L (22-30); CHLORIDE 97 mmol/L (98-107); GLUCOSE 97 mg/dL (75-110); POTASSIUM 3.6 mmol/L (3.6-5.0)
[2019-10-13 04:37] LABS: BLOOD UREA NITROGEN 45 mg/dL (7-20)
[2019-10-13] MEDS: CALCIUM ACETATE 667 MG CAPSULE PO SCH ×3 (08:09→16:24)
[2019-10-13] MEDS: DOCUSATE SODIUM 100 MG CAPSULE PO SCH ×2 (09:39→17:57)
[2019-10-13] MEDS: FUROSEMIDE 20 MG TABLET PO SCH (09:45)
[2019-10-13] MEDS: ATORVASTATIN CALCIUM 80 MG TABLET PO SCH (09:45)
[2019-10-13] MEDS: AMLODIPINE BESYLATE 5 MG TABLET PO SCH (09:45)
[2019-10-13] MEDS: PANTOPRAZOLE SODIUM 40 MG TABLET.DR PO SCH (09:46)
[2019-10-13] MEDS: VITAMIN B COMPLEX TABLET PO SCH (09:46)
[2019-10-13] MEDS: METOPROLOL SUCCINATE 25 MG TAB.SR.24H PO SCH (09:46)
[2019-10-13] MEDS: FINASTERIDE 5 MG TABLET PO SCH (09:46)
[2019-10-13] MEDS ORDERED: ONDANSETRON 4 MG TAB.RAPDIS PO PRN (11:43)
--- NOTE | 2019-10-13 12:29 | PDOC PROGRESS REPORT ---
Subjective Progress Note for:: 10/13/19 Subjective:: Knee is doing better, patient was able to walk around the [place], I discontinued the gentamicin this morning, he did not get it yesterday Reason For Visit: LEFT KNEE SEPSIS,ESRD,CAD Physical Exam Vital Signs: Temp Pulse Resp BP Pulse Ox 97.5 F 73 18 83/61 L 99 10/13/19 12:13 10/13/19 12:13 10/13/19 12:13 10/13/19 12:13 10/13/19 12:13 Intake & Output 10/12/19 10/13/19 10/14/19 06:59 06:59 06:59 Intake Total 655 725 Output Total 2700 Balance 655 -1975 Weight 66.7 kg 65.4 kg General appearance: PRESENT: no acute distress, well-developed, well-nourished Head exam: PRESENT: atraumatic, normocephalic Eye exam: PRESENT: conjunctiva pink, EOMI, PERRLA. ABSENT: scleral icterus Ear exam: PRESENT: normal external ear exam Mouth exam: PRESENT: moist, tongue midline Neck exam: ABSENT: carotid bruit, JVD, lymphadenopathy, thyromegaly Respiratory exam: PRESENT: clear to auscultation lucien. ABSENT: rales, rhonchi, wheezes Cardiovascular exam: PRESENT: RRR. ABSENT: diastolic murmur, rubs, systolic murmur Pulses: PRESENT: normal dorsalis pedis pul Vascular exam: PRESENT: normal capillary refill GI/Abdominal exam: PRESENT: normal bowel sounds, soft. ABSENT: distended, guarding, mass, organolmegaly, rebound, tenderness Rectal exam: PRESENT: deferred Extremities exam: PRESENT: full ROM. ABSENT: calf tenderness, clubbing, pedal edema Neurological exam: PRESENT: alert, awake, oriented to person, oriented to place, oriented to time, oriented to situation, CN II-XII grossly intact. ABSENT: motor sensory deficit Psychiatric exam: PRESENT: appropriate affect, normal mood. ABSENT: homicidal ideation, suicidal ideation Skin exam: PRESENT: dry, intact, warm. ABSENT: cyanosis, rash Results Laboratory Results: 10/13/19 03:18 10/13/19 03:18 10/12/19 10/13/19 10/13/19 13:37 03:18 03:18 WBC 7.7 RBC 3.04 L Hgb 10.2 L Hct 30.3 L MCV 100 H MCH 33.7 H MCHC 33.8 RDW 18.4 H Plt Count 107 L Seg Neutrophils % 53.4 Sodium 136.3 L Potassium 3.6 Chloride 97 L Carbon Dioxide 28 Anion Gap 11 BUN 45 H D Creatinine 6.37 H Est GFR ( Amer) 10 L Glucose 97 Calcium 8.1 L C-Reactive Protein 12.4 H 10/10/19 15:50 Clean Catch Midstream Urine Culture - Final NO GROWTH 2 DAYS Impressions: Chest X-Ray 10/10/19 00:00 IMPRESSION: Stable cardiomegaly. No other significant findings. Assessment & Plan - Diagnosis (1) Septic arthritis of knee, right Qualifiers: Septic arthritis organism: due to other bacteria Qualified Code(s): M00.861 - Arthritis due to other bacteria, right knee Is this a current diagnosis for this admission?: Yes Plan: Pseudomonas septic joint, washout planned for Tuesday, continue with cefepime alone for now (2) Multiple myeloma Qualifiers: Multiple myeloma remission status: not in remission Qualified Code(s): C90.00 - Multiple myeloma not having achieved remission Is this a current diagnosis for this admission?: Yes Plan: Holding all therapy (3) Anemia Qualifiers: Anemia type: due to chronic kidney disease Chronic kidney disease stage: on chronic dialysis Qualified Code(s): N18.6 - End stage renal disease; D63.1 - Anemia in chronic kidney disease; Z99.2 - Dependence on renal dialysis Is this a current diagnosis for this admission?: Yes Plan: Hemoglobin stable - Time Time Spent with patient: 35 or more minutes - Inpatient Certification Based on my medical assessment, after consideration of the patient's comorbidities, presenting symptoms, or acuity I expect that the services needed warrant INPATIENT care.: Yes I certify that my determination is in accordance with my understanding of Medicare's requirements for reasonable and necessary INPATIENT services [42 CFR 412.3e].: Yes Medical Necessity: Need for IV Antibiotics, Need for Surgery, Risk of Complication if Not Cared For in Hospital
--- NOTE | 2019-10-13 15:10 | PDOC PROGRESS REPORT ---
Subjective Progress Note for:: 10/13/19 Subjective:: Patient seen by the bedside, history of end-stage renal disease on maintenance hemodialysis admitted for septic right knee, scheduled for operative procedure on Tuesday Reason For Visit: LEFT KNEE SEPSIS,ESRD,CAD Physical Exam Vital Signs: Temp Pulse Resp BP Pulse Ox 97.5 F 61 18 83/61 L 99 10/13/19 12:13 10/13/19 14:00 10/13/19 12:13 10/13/19 12:13 10/13/19 12:13 Intake & Output 10/12/19 10/13/19 10/14/19 06:59 06:59 06:59 Intake Total 655 725 240 Output Total 2700 75 Balance 655 -1975 165 Weight 66.7 kg 65.4 kg General appearance: PRESENT: no acute distress Eye exam: PRESENT: PERRLA Respiratory exam: PRESENT: clear to auscultation lucien Cardiovascular exam: PRESENT: +S1, +S2 GI/Abdominal exam: PRESENT: soft Neurological exam: PRESENT: alert Results Laboratory Results: 10/13/19 03:18 10/13/19 03:18 10/13/19 10/13/19 03:18 03:18 WBC 7.7 RBC 3.04 L Hgb 10.2 L Hct 30.3 L MCV 100 H MCH 33.7 H MCHC 33.8 RDW 18.4 H Plt Count 107 L Seg Neutrophils % 53.4 Sodium 136.3 L Potassium 3.6 Chloride 97 L Carbon Dioxide 28 Anion Gap 11 BUN 45 H D Creatinine 6.37 H Est GFR ( Amer) 10 L Glucose 97 Calcium 8.1 L Impressions: Chest X-Ray 10/10/19 00:00 IMPRESSION: Stable cardiomegaly. No other significant findings. Assessment & Plan - Diagnosis (1) Septic arthritis of knee, right Qualifiers: Septic arthritis organism: due to other bacteria Qualified Code(s): M00.861 - Arthritis due to other bacteria, right knee Is this a current diagnosis for this admission?: Yes (2) Multiple myeloma Qualifiers: Multiple myeloma remission status: not in remission Qualified Code(s): C90.00 - Multiple myeloma not having achieved remission Is this a current diagnosis for this admission?: Yes - Time Time Spent with patient: 25-34 minutes - Inpatient Certification Based on my medical assessment, after consideration of the patient's comorbidities, presenting symptoms, or acuity I expect that the services needed warrant INPATIENT care.: Yes I certify that my determination is in accordance with my understanding of Medicare's requirements for reasonable and necessary INPATIENT services [42 CFR 412.3e].: Yes - Plan Summary Plan Summary: Continue present line of management
[2019-10-13] MEDS: CEFEPIME HCL 0.5 GM in NORMAL SALINE 25 ML IV SCH (22:58)
[2019-10-14 06:31] LABS: ANION GAP 11 (5-19); BLOOD UREA NITROGEN 66 mg/dL (7-20); CALCIUM 8.1 mg/dL (8.4-10.2); CARBON DIOXIDE 25 mmol/L (22-30); CHLORIDE 100 mmol/L (98-107); GLUCOSE 99 mg/dL (75-110); POTASSIUM 4.1 mmol/L (3.6-5.0)
--- NOTE | 2019-10-14 07:47 | PDOC PROGRESS REPORT ---
Subjective Progress Note for:: 10/14/19 Reason For Visit: LEFT KNEE SEPSIS,ESRD,CAD 84-year-old male with a right periprosthetic Pseudomonas knee infection. Patient on IV antibiotics. Patient reports less pain and improving function. Physical Exam Vital Signs: Temp Pulse Resp BP Pulse Ox 36.7 C 58 L 18 126/55 H 100 10/14/19 05:14 10/14/19 07:00 10/14/19 05:14 10/14/19 05:14 10/14/19 05:14 Intake & Output 10/13/19 10/14/19 10/15/19 06:59 06:59 06:59 Intake Total 725 737 Output Total 2700 75 Balance -1975 662 Weight 65.4 kg Physical Exam: Elderly white male appearing significant younger than his stated age. Patient is alert, oriented, and appropriate. General appearance: PRESENT: no acute distress Respiratory exam: PRESENT: unlabored Cardiovascular exam: PRESENT: RRR Pulses: PRESENT: +1 pedal pulses bilateral Vascular exam: PRESENT: normal capillary refill GI/Abdominal exam: PRESENT: soft Rectal exam: PRESENT: deferred Extremities exam: PRESENT: other - Decreased knee effusion and minimal tenderness to palpation. Passive range of motion with discomfort at both ex tremes. Neurological exam: PRESENT: alert, awake, oriented to person, oriented to place, oriented to time, oriented to situation. ABSENT: motor sensory deficit Psychiatric exam: PRESENT: appropriate affect, normal mood. ABSENT: homicidal ideation, suicidal ideation Skin exam: PRESENT: dry, intact, warm. ABSENT: cyanosis, rash Results Laboratory Results: 10/13/19 03:18 10/14/19 05:39 10/14/19 05:39 Sodium 136.1 L Potassium 4.1 Chloride 100 Carbon Dioxide 25 Anion Gap 11 BUN 66 H Creatinine 7.98 H Est GFR ( Amer) 8 L Glucose 99 Calcium 8.1 L Impressions: Chest X-Ray 10/10/19 00:00 IMPRESSION: Stable cardiomegaly. No other significant findings. Assessment & Plan - Diagnosis (1) Septic arthritis of knee, right Qualifiers: Septic arthritis organism: due to other bacteria Qualified Code(s): M00.861 - Arthritis due to other bacteria, right knee Is this a current diagnosis for this admission?: Yes Plan: Tentative plan is for an I&D with polyethylene exchange tomorrow. Details of the procedure reviewed with the patient today. - Time Time Spent with patient: 15-24 minutes Anticipated discharge: Other Within: Other
[2019-10-14] MEDS: CALCIUM ACETATE 667 MG CAPSULE PO SCH ×3 (08:54→18:01)
[2019-10-14] MEDS: DOCUSATE SODIUM 100 MG CAPSULE PO SCH ×2 (09:52→17:59)
[2019-10-14] MEDS: METOPROLOL SUCCINATE 25 MG TAB.SR.24H PO SCH (09:54)
[2019-10-14] MEDS: VITAMIN B COMPLEX TABLET PO SCH (10:51)
[2019-10-14] MEDS: FUROSEMIDE 20 MG TABLET PO SCH (10:52)
[2019-10-14] MEDS: ATORVASTATIN CALCIUM 80 MG TABLET PO SCH (10:52)
[2019-10-14] MEDS: AMLODIPINE BESYLATE 5 MG TABLET PO SCH (10:52)
[2019-10-14] MEDS: FINASTERIDE 5 MG TABLET PO SCH (10:52)
[2019-10-14] MEDS: PANTOPRAZOLE SODIUM 40 MG TABLET.DR PO SCH (10:52)
--- NOTE | 2019-10-14 16:20 | PDOC PROGRESS REPORT ---
Subjective Progress Note for:: 10/14/19 Subjective:: Patient seen by the bedside, history of end-stage renal disease on maintenance hemodialysis admitted for septic right knee, scheduled for operative procedure on Tuesday Reason For Visit: LEFT KNEE SEPSIS,ESRD,CAD Physical Exam Vital Signs: Temp Pulse Resp BP Pulse Ox 97.3 F 62 18 119/48 L 100 10/14/19 15:14 10/14/19 15:14 10/14/19 15:14 10/14/19 15:14 10/14/19 15:14 Intake & Output 10/13/19 10/14/19 10/15/19 06:59 06:59 06:59 Intake Total 725 737 800 Output Total 2700 75 200 Balance -1975 662 600 Weight 65.4 kg 66.2 kg General appearance: PRESENT: no acute distress Eye exam: PRESENT: PERRLA Respiratory exam: PRESENT: clear to auscultation lucien Cardiovascular exam: PRESENT: +S1, +S2 GI/Abdominal exam: PRESENT: soft Neurological exam: PRESENT: alert Results Laboratory Results: 10/13/19 03:18 10/14/19 05:39 10/14/19 05:39 Sodium 136.1 L Potassium 4.1 Chloride 100 Carbon Dioxide 25 Anion Gap 11 BUN 66 H Creatinine 7.98 H Est GFR ( Amer) 8 L Glucose 99 Calcium 8.1 L Impressions: Chest X-Ray 10/10/19 00:00 IMPRESSION: Stable cardiomegaly. No other significant findings. Assessment & Plan - Diagnosis (1) Septic arthritis of knee, right Qualifiers: Septic arthritis organism: due to other bacteria Qualified Code(s): M00.861 - Arthritis due to other bacteria, right knee Is this a current diagnosis for this admission?: Yes (2) Multiple myeloma Qualifiers: Multiple myeloma remission status: not in remission Qualified Code(s): C90.00 - Multiple myeloma not having achieved remission Is this a current diagnosis for this admission?: Yes - Time Time Spent with patient: 15-24 minutes
[2019-10-14] MEDS ORDERED: EPOETIN ALFA-EPBX 2,000 UNIT, EPOETIN ALFA-EPBX 3,000 UNIT in SYRINGE, DISPOSABLE, 1 EACH IV PRN (21:15)
[2019-10-14] MEDS: CEFEPIME HCL 0.5 GM in NORMAL SALINE 25 ML IV SCH (21:18)
[2019-10-15] MEDS ORDERED: NORMAL SALINE 1000 ML 1,000 ML IV PRN (05:00)
[2019-10-15] MEDS ORDERED: RINGERS SOLUTION,LACTATED 1,000 ML IV PRN ×3 (05:00→16:20)
[2019-10-15] MEDS ORDERED: TRANEXAMIC ACID INJ/PF 1,000 MG/10 ML SDV IV PRN (05:00)
[2019-10-15 06:54] LABS: ABSOLUTE BASOPHILS # (AUTO) 0.1 10^3/uL (0.0-0.2); ABSOLUTE EOSINOPHILS # (AUTO) 0.4 10^3/uL (0.0-0.6); ABSOLUTE LYMPHOCYTES (AUTO) 2.1 10^3/uL (0.5-4.7); ABSOLUTE NEUT (AUTO) 3.2 10^3/uL (1.7-8.2); BASOPHILS % (AUTO) 1.5 % (0-2); EOSINOPHILS % (AUTO) 6.2 % (0-6); HEMATOCRIT 28.4 % (37.9-51.0); HEMOGLOBIN 9.5 g/dL (13.5-17.0); LYMPHOCYTES % (AUTO) 30.9 % (13-45); MEAN CORPUSCULAR HEMOGLOBIN 33.5 pg (27.0-33.4); MEAN CORPUSCULAR HGB CONC 33.5 g/dL (32.0-36.0); MEAN CORPUSCULAR VOLUME 100 fl (80-97); PLATELET COUNT 119 10^3/uL (150-450); RED BLOOD COUNT 2.84 10^6/uL (4.35-5.55); RED CELL DISTRIBUTION WIDTH 17.7 % (11.5-14.0); SEGMENTED NEUTROPHILS % (AUTO) 46.4 % (42-78); TOTAL CELLS COUNTED % (AUTO) 100 %; WHITE BLOOD COUNT 6.9 10^3/uL (4.0-10.5)
[2019-10-15 07:17] LABS: ANION GAP 14 (5-19); BLOOD UREA NITROGEN 76 mg/dL (7-20); CALCIUM 8.1 mg/dL (8.4-10.2); CARBON DIOXIDE 23 mmol/L (22-30); CHLORIDE 102 mmol/L (98-107); GLUCOSE 100 mg/dL (75-110); POTASSIUM 4.2 mmol/L (3.6-5.0)
[2019-10-15] MEDS ORDERED: EPOETIN ALFA-EPBX 2,000 UNIT, EPOETIN ALFA-EPBX 3,000 UNIT in SYRINGE, DISPOSABLE, 1 EACH IV PRN (07:28)
--- NOTE | 2019-10-15 08:06 | PDOC PROGRESS REPORT ---
Subjective Progress Note for:: 10/15/19 Subjective:: Washout procedure planned for this morning, continue to monitor otherwise Reason For Visit: LEFT KNEE SEPSIS,ESRD,CAD Physical Exam Vital Signs: Temp Pulse Resp BP Pulse Ox 98.2 F 64 17 134/53 H 98 10/15/19 07:48 10/15/19 07:48 10/15/19 07:48 10/15/19 07:48 10/15/19 07:48 Intake & Output 10/14/19 10/15/19 10/16/19 06:59 06:59 06:59 Intake Total 737 1025 Output Total 75 550 Balance 662 475 Weight 66.2 kg 67.3 kg General appearance: PRESENT: no acute distress, well-developed, well-nourished Head exam: PRESENT: atraumatic, normocephalic Eye exam: PRESENT: conjunctiva pink, EOMI, PERRLA. ABSENT: scleral icterus Ear exam: PRESENT: normal external ear exam Mouth exam: PRESENT: moist, tongue midline Neck exam: ABSENT: carotid bruit, JVD, lymphadenopathy, thyromegaly Respiratory exam: PRESENT: clear to auscultation lucien. ABSENT: rales, rhonchi, wheezes Cardiovascular exam: PRESENT: RRR. ABSENT: diastolic murmur, rubs, systolic murmur Pulses: PRESENT: normal dorsalis pedis pul Vascular exam: PRESENT: normal capillary refill GI/Abdominal exam: PRESENT: normal bowel sounds, soft. ABSENT: distended, guarding, mass, organolmegaly, rebound, tenderness Rectal exam: PRESENT: deferred Extremities exam: PRESENT: full ROM. ABSENT: calf tenderness, clubbing, pedal edema Neurological exam: PRESENT: alert, awake, oriented to person, oriented to place, oriented to time, oriented to situation, CN II-XII grossly intact. ABSENT: motor sensory deficit Psychiatric exam: PRESENT: appropriate affect, normal mood. ABSENT: homicidal ideation, suicidal ideation Skin exam: PRESENT: dry, intact, warm. ABSENT: cyanosis, rash Results Laboratory Results: 10/15/19 06:14 10/15/19 06:14 10/15/19 10/15/19 06:14 06:14 WBC 6.9 RBC 2.84 L Hgb 9.5 L Hct 28.4 L MCV 100 H MCH 33.5 H MCHC 33.5 RDW 17.7 H Plt Count 119 L Seg Neutrophils % 46.4 Sodium 138.7 Potassium 4.2 Chloride 102 Carbon Dioxide 23 Anion Gap 14 BUN 76 H Creatinine 9.52 H Est GFR ( Amer) 6 L Glucose 100 Calcium 8.1 L Impressions: Chest X-Ray 10/10/19 00:00 IMPRESSION: Stable cardiomegaly. No other significant findings. Assessment & Plan - Diagnosis (1) Septic arthritis of knee, right Qualifiers: Septic arthritis organism: due to other bacteria Qualified Code(s): M00.861 - Arthritis due to other bacteria, right knee Is this a current diagnosis for this admission?: Yes Plan: Continue with cefepime alone (2) Multiple myeloma Qualifiers: Multiple myeloma remission status: not in remission Qualified Code(s): C90.00 - Multiple myeloma not having achieved remission Is this a current diagnosis for this admission?: Yes Plan: Holding all therapy until he can get another port in but this may be some time (3) Anemia Qualifiers: Anemia type: due to chronic kidney disease Chronic kidney disease stage: on chronic dialysis Qualified Code(s): N18.6 - End stage renal disease; D63.1 - Anemia in chronic kidney disease; Z99.2 - Dependence on renal dialysis Is this a current diagnosis for this admission?: Yes Plan: Hemoglobin stable will follow - Time Time Spent with patient: 25-34 minutes - Inpatient Certification Based on my medical assessment, after consideration of the patient's comorbidities, presenting symptoms, or acuity I expect that the services needed warrant INPATIENT care.: Yes I certify that my determination is in accordance with my understanding of Medicare's requirements for reasonable and necessary INPATIENT services [42 CFR 412.3e].: Yes Medical Necessity: Need for IV Antibiotics, Need for Surgery
--- NOTE | 2019-10-15 08:46 | PDOC PROGRESS REPORT ---
Subjective Progress Note for:: 10/15/19 Subjective:: Patient is currently doing much better No fever no chills And is going for the IND per Dr. Dodge Patient also scheduled for dialyzed today Patient is currently seen by Dr. Jsoé all stable the cardiac standpoint Reason For Visit: LEFT KNEE SEPSIS,ESRD,CAD Physical Exam Vital Signs: Temp Pulse Resp BP Pulse Ox 98.2 F 64 17 134/53 H 98 10/15/19 07:48 10/15/19 07:48 10/15/19 07:48 10/15/19 07:48 10/15/19 07:48 Intake & Output 10/14/19 10/15/19 10/16/19 06:59 06:59 06:59 Intake Total 737 1025 Output Total 75 550 Balance 662 475 Weight 66.2 kg 67.3 kg General appearance: PRESENT: no acute distress, well-developed, well-nourished Head exam: PRESENT: atraumatic, normocephalic Eye exam: PRESENT: conjunctiva pink, EOMI, PERRLA. ABSENT: scleral icterus Ear exam: PRESENT: normal external ear exam Mouth exam: PRESENT: moist, tongue midline Neck exam: PRESENT: full ROM. ABSENT: carotid bruit, JVD, lymphadenopathy, thyromegaly Respiratory exam: PRESENT: clear to auscultation lucien Cardiovascular exam: PRESENT: RRR. ABSENT: diastolic murmur, rubs, systolic murmur Pulses: PRESENT: normal dorsalis pedis pul, +2 pedal pulses bilateral Vascular exam: PRESENT: normal capillary refill GI/Abdominal exam: PRESENT: normal bowel sounds, soft. ABSENT: distended, guarding, mass, organolmegaly, rebound, tenderness Rectal exam: PRESENT: deferred Musculoskeletal exam: PRESENT: ambulatory Neurological exam: PRESENT: alert, awake, oriented to person, oriented to place, oriented to time, oriented to situation, CN II-XII grossly intact. ABSENT: motor sensory deficit Psychiatric exam: PRESENT: appropriate affect, normal mood. ABSENT: homicidal ideation, suicidal ideation Skin exam: PRESENT: dry, intact, warm. ABSENT: cyanosis, rash Results Laboratory Results: 10/15/19 06:14 10/15/19 06:14 10/15/19 10/15/19 06:14 06:14 WBC 6.9 RBC 2.84 L Hgb 9.5 L Hct 28.4 L MCV 100 H MCH 33.5 H MCHC 33.5 RDW 17.7 H Plt Count 119 L Seg Neutrophils % 46.4 Sodium 138.7 Potassium 4.2 Chloride 102 Carbon Dioxide 23 Anion Gap 14 BUN 76 H Creatinine 9.52 H Est GFR ( Amer) 6 L Glucose 100 Calcium 8.1 L Impressions: Chest X-Ray 10/10/19 00:00 IMPRESSION: Stable cardiomegaly. No other significant findings. Assessment & Plan - Diagnosis (1) Septic arthritis of knee, right Qualifiers: Septic arthritis organism: due to other bacteria Qualified Code(s): M00.861 - Arthritis due to other bacteria, right knee Is this a current diagnosis for this admission?: Yes Plan: Going for the surgery per Dr. Dodge (2) Coronary artery disease Qualifiers: Coronary Disease-Associated Artery/Lesion type: bypass graft Associated angina: without angina Is this a current diagnosis for this admission?: Yes Plan: Currently all stable per cardiology (3) ESRD (end stage renal disease) on dialysis Is this a current diagnosis for this admission?: Yes Plan: Currently on hemodialysis consult the nephrology (4) Hypertension Qualifiers: Hypertension type: essential hypertension Qualified Code(s): I10 - Essential (primary) hypertension Is this a current diagnosis for this admission?: Yes Plan: Currently all stable (5) Multiple myeloma Qualifiers: Multiple myeloma remission status: not in remission Qualified Code(s): C90.00 - Multiple myeloma not having achieved remission Is this a current diagnosis for this admission?: Yes Plan: Currently follow with oncology (6) Pseudomonal arthritis Is this a current diagnosis for this admission?: Yes Plan: Continues to IV antibiotic - Time Time Spent with patient: 15-24 minutes Level of Care: IMCU Medications reviewed and adjusted accordingly: Yes Anticipated discharge: Other Within: Other - Plan Summary Plan Summary: Currently all stable
--- NOTE | 2019-10-15 09:31 | PDOC PROGRESS REPORT ---
Subjective Progress Note for:: 10/15/19 Subjective:: Seen the patient during dialysis treatment this morning. Patient has really no acute complaints. His right knee does not bother him except when moving. He is a scheduled for I&D and polyethylene exchange in the right knee today by Dr. Dodge. Patient is tolerating dialysis without any problems at this time. Reason For Visit: LEFT KNEE SEPSIS,ESRD,CAD Physical Exam Vital Signs: Temp Pulse Resp BP Pulse Ox 98.2 F 64 17 134/53 H 98 10/15/19 07:48 10/15/19 07:48 10/15/19 07:48 10/15/19 07:48 10/15/19 07:48 Intake & Output 10/14/19 10/15/19 10/16/19 06:59 06:59 06:59 Intake Total 737 1025 Output Total 75 550 Balance 662 475 Weight 66.2 kg 67.3 kg Vitals during dialysis: Blood pressure 139/66, pulse rate of 62, blood flow rate of 450 mL/min and dialysate flow rate of 800 mL/min. Exam: General appearance: PRESENT: no acute distress, cooperative, well-developed, well-nourished Head exam: PRESENT: atraumatic, normocephalic Eye exam: PRESENT: conjunctiva slightly pale, PERRLA. ABSENT: scleral icterus Neck exam: ABSENT: JVD Respiratory exam: PRESENT: Normal breath sounds. ABSENT: crackles, rales, rhonchi, unlabored, wheezes Cardiovascular exam: PRESENT: Regular rate rhythm -+S1, +S2. ABSENT: diastolic murmur, systolic murmur GI/Abdominal exam: PRESENT: normal bowel sounds, soft. ABSENT: guarding, mass, tenderness Extremities exam: ABSENT: No edema; right knee still swollen with mild warmth and limitation of motion. Neurological exam: PRESENT: alert, awake, oriented to person, place and time. Skin exam: PRESENT: dry, warm, Results Laboratory Results: 10/15/19 06:14 10/15/19 06:14 10/15/19 10/15/19 06:14 06:14 WBC 6.9 RBC 2.84 L Hgb 9.5 L Hct 28.4 L MCV 100 H MCH 33.5 H MCHC 33.5 RDW 17.7 H Plt Count 119 L Seg Neutrophils % 46.4 Sodium 138.7 Potassium 4.2 Chloride 102 Carbon Dioxide 23 Anion Gap 14 BUN 76 H Creatinine 9.52 H Est GFR ( Amer) 6 L Glucose 100 Calcium 8.1 L Impressions: Chest X-Ray 10/10/19 00:00 IMPRESSION: Stable cardiomegaly. No other significant findings. Assessment & Plan - Diagnosis (1) Septic joint of left knee joint Qualifiers: Septic arthritis organism: due to other bacteria Qualified Code(s): M00.862 - Arthritis due to other bacteria, left knee Is this a current diagnosis for this admission?: Yes Plan: Secondary to pseudomonas aeruginosa in the patient with prosthetic hardware. Plan is for patient to undergo washout and poly-ethylene exchange of the right knee today. Continue monotherapy with IV cefepime per ID recommendation. (2) ESRD (end stage renal disease) on dialysis Is this a current diagnosis for this admission?: Yes Plan: We will do dialysis today for 3 hours, using the patient's AV fistula, with 3 potassium bath, blood flow rate of 450 mL per minute, dialysate flow rate of 800 mL per minute, ultrafiltration 2.5-3 L as tolerated, no heparin and Procrit with 5,000 units during dialysis intravenously. Patient is being monitored continuously during dialysis treatment. (3) Hypertension Qualifiers: Hypertension type: essential hypertension Qualified Code(s): I10 - Essential (primary) hypertension Is this a current diagnosis for this admission?: Yes Plan: Adequately controlled. Hold blood pressure medication prior to dialysis treatment. (4) Multiple myeloma Qualifiers: Multiple myeloma remission status: not in remission Qualified Code(s): C90.00 - Multiple myeloma not having achieved remission Is this a current diagnosis for this admission?: Yes (5) Pseudomonal arthritis Is this a current diagnosis for this admission?: Yes Plan: On IV cefepime monotherapy per ID. (6) Pseudomonas aeruginosa colonization Is this a current diagnosis for this admission?: Yes - Time Time with patient: 15-25 minutes
[2019-10-15] MEDS: CALCIUM ACETATE 667 MG CAPSULE PO SCH ×3 (12:09→18:11)
[2019-10-15] MEDS: ATORVASTATIN CALCIUM 80 MG TABLET PO SCH (12:12)
[2019-10-15] MEDS: FUROSEMIDE 20 MG TABLET PO SCH (12:12)
[2019-10-15] MEDS: FINASTERIDE 5 MG TABLET PO SCH (12:13)
[2019-10-15] MEDS: PANTOPRAZOLE SODIUM 40 MG TABLET.DR PO SCH (12:13)
[2019-10-15] MEDS: AMLODIPINE BESYLATE 5 MG TABLET PO SCH (12:13)
[2019-10-15] MEDS: DOCUSATE SODIUM 100 MG CAPSULE PO SCH ×2 (12:14→18:11)
[2019-10-15] MEDS: VITAMIN B COMPLEX TABLET PO SCH (12:14)
[2019-10-15] MEDS: METOPROLOL SUCCINATE 25 MG TAB.SR.24H PO SCH (12:14)
[2019-10-15] MEDS ORDERED: ACETAMINOPHEN 325 MG TABLET PO PRN ×2 (14:33→16:20)
[2019-10-15] MEDS ORDERED: TRANEXAMIC ACID INJ/PF 1,000 MG/10 ML SDV ONE (14:59)
[2019-10-15] MEDS ORDERED: MIDAZOLAM 2 MG/2 ML INJ ONE (15:09)
[2019-10-15] MEDS ORDERED: FENTANYL CITRATE INJ/PF 250 MCG/5 ML AMPULE ONE (15:09)
[2019-10-15] MEDS ORDERED: PROPOFOL INJ 200 MG/20 ML VIAL IV ONE (15:10)
[2019-10-15] MEDS ORDERED: SUCCINYLCHOLINE CHLORIDE INJ 200 MG/10 ML VIAL ONE (15:11)
[2019-10-15] MEDS ORDERED: VANCOMYCIN HCL INJ 1000 MG VIAL ONE (15:17)
[2019-10-15] MEDS ORDERED: ONDANSETRON HCL INJ/PF 4 MG/2 ML SDV IV PRN (16:01)
[2019-10-15] MEDS ORDERED: MEPERIDINE HCL/PF INJ 25 MG/1 ML DISP.SYRIN IV PRN (16:01)
[2019-10-15] MEDS ORDERED: FENTANYL CITRATE INJ/PF 100 MCG/2 ML AMPUL IV PRN ×3 (16:01)
[2019-10-15] MEDS ORDERED: DIPHENHYDRAMINE HCL 50 MG/ML VIAL IV PRN ×2 (16:01→16:20)
[2019-10-15] MEDS ORDERED: MORPHINE SULFATE 10 MG/ML INJ IV PRN (16:01)
[2019-10-15] MEDS ORDERED: ZOLPIDEM TARTRATE 5 MG TABLET PO PRN (16:20)
[2019-10-15] MEDS ORDERED: MAG HYDROX/AL HYDROX/SIMETH SUSP 30 ML UDCUP PO PRN (16:20)
--- NOTE | 2019-10-15 16:20 | Operative Report ---
Operative Report DATE OF SURGERY: 10/15/19 PREOPERATIVE DIAGNOSIS: Right knee periprosthetic infection with Pseudomonas OPERATION: Irrigation debridement revision knee arthroplasty SURGEON: KAJAL MCDERMOTT ANESTHESIA: GA TISSUE REMOVED OR ALTERED: Ultras to microbiology. Tissue to pathology ESTIMATED BLOOD LOSS: 100 PROCEDURE: Implants used: Biomet Vanguard XII millimeter PS insert Procedure: With the patient supine Afrin table the right lower extremities prepped and draped in sterile fashion. Limb is elevated for exsanguination tourniquet inflated to 280 torr. A standard midline medial parapatellar approach knee is taken in line with the previous surgical approach. Upon entering the knee fluid is aspirated and sent to microbiology. The knee is then flexed and the locking clip anteriorly on the Biomet tibial spacer is removed carefully. The polyethylene is removed. A aggressive synovectomy was performed of the knee. The wound is then irrigated with 3 L of normal saline containing Betadine using pulse lavage. A new 12 mm PS spacer is impacted in tibial tray and the previous locking clip was used to lock this in place. The tourniquet is deflated. Hemostasis obtained with electrocautery. The wound was again irrigated and then closed using PDS for the capsule, the subcutaneous tissue as well as the skin. A sterile compressive dressing was applied and the patient's return to the PACU in satisfactory condition.
[2019-10-15] MEDS: SENNOSIDES/DOCUSATE 8.6-50 MG 1 EACH TABLET PO SCH (18:11)
--- NOTE | 2019-10-15 18:18 | RADIOLOGY REPORT (SQ) ---
EXAM DESCRIPTION: KNEE RIGHT 2 VIEWS COMPLETED DATE/TIME: 10/15/2019 5:16 pm REASON FOR STUDY: Post OP -Long Cassette in PACU COMPARISON: None. NUMBER OF VIEWS: Two views. TECHNIQUE: AP and lateral radiographic images acquired of the right knee. LIMITATIONS: None. FINDINGS: Postoperative images of the right knee show total knee arthroplasty in good position. IMPRESSION: Right total knee arthroplasty. Refer to operative note for further information. TECHNICAL DOCUMENTATION: JOB ID: [id number] [employer]- All Rights Reserved Reading location - IP/workstation name: [email or web address]
[2019-10-15] MEDS: OXYCODONE HCL IR 5 MG TABLET PO PRN (19:00)
--- NOTE | 2019-10-15 19:30 | PDOC PROGRESS REPORT ---
Subjective Progress Note for:: 10/12/19 Subjective:: Patient was seen yesterday on evening rounds. He was admitted for possible septic arthritis of the replaced right knee. Patient however denied any chest pain. He has some shortness of breath. Patient noted to have an abnormal EKG. He is noted to have cardiomegaly on chest x-ray. It is felt that patient may end up needing knee surgery. I was therefore asked to evaluate patient. 10/11/2019: Patient seen in the evening. No significant change from before. Blood cultures so far been negative. 2D echo shows mild to moderately depressed LVEF with evident to suggest CAD. Valves seems thickened but without any definite vegetations. 10/12/2019: Patient remains stable. No significant change from yesterday. Still has swollen right knee with some increased local temperature. Plan is for drainage of the right knee. Reason For Visit: LEFT KNEE SEPSIS,ESRD,CAD Physical Exam Vital Signs: Temp Pulse Resp BP Pulse Ox 98.4 F 61 14 138/54 H 96 10/12/19 03:17 10/12/19 07:00 10/12/19 03:17 10/12/19 03:17 10/12/19 03:17 Intake & Output 10/11/19 10/12/19 10/13/19 06:59 06:59 06:59 Intake Total 100 655 Balance 100 655 Weight 66.4 kg 66.7 kg Exam: GENERAL: well-nourished and in no acute distress. Alert and oriented x3 HEAD: Atraumatic, normocephalic. EYES: NÉSTOR, sclera anicteric, conjunctiva are normal. ENT: Moist mucous membranes. No oral ulcerations or bleeding gums noted. No obvious ear, nose or throat abnormalities noted. NECK: supple without lymphadenopathy. Trachea is central. No cervical or axillary lymphadenopathy noted. Carotids are 2+, JVD WNL LUNGS: Breath sounds clear bilaterally. No wheezes rales or rhonchi noted. No significant dullness noted on percussion. CHEST: Palpation of the chest wall shows no significant chest wall tenderness. HEART: [place] [employer], No PSH, 1/6 ZEFERINO aortic area, 1/6 fang systolic murmur mitral area, no rubs, no gallops. ABDOMEN: Soft, no significant tenderness appreciated, normoactive bowel sounds. No guarding, no rebound. No rigidity noted . No masses appreciated. EXTREMITIES: Pedal pulses are 1-2+, no calf tenderness noted. No clubbing or cyanosis. negative pedal edema noted. Right knee swollen and warm. Indicative of acute arthritis. Patient has AV fistula in right arm. Port-A-Cath left shoulder NEUROLOGICAL: Focused neurological exam showed no significant neurologic deficit. Normal speech, no focal weakness appreciated. PSYCH: Normal mood, normal affect. Judgment and insight within normal limits. SKIN: No significant ecchymosis, skin is noted to be warm. MUSCULOSKELETAL EXAM: No significant acute joint swelling noted. Results Laboratory Results: 10/12/19 05:37 10/12/19 05:37 10/11/19 10/12/19 10/12/19 05:30 05:37 05:37 WBC 9.5 RBC 2.83 L Hgb 9.5 L Hct 28.3 L MCV 100 H MCH 33.7 H MCHC 33.7 RDW 17.5 H Plt Count 110 L Seg Neutrophils % 59.4 Sodium 139.9 Potassium 4.0 Chloride 106 Carbon Dioxide 21 L Anion Gap 13 BUN 80 H Creatinine 9.66 H Est GFR ( Amer) 6 L Glucose 89 Calcium 8.0 L Triglycerides 95 Cholesterol 102.56 LDL Cholesterol Direct 45 VLDL Cholesterol 19.0 HDL Cholesterol 35 L 10/10/19 15:50 Clean Catch Midstream Urine Culture - Final NO GROWTH 2 DAYS EKG Comments: Telemetry shows sinus rhythm no acute cardiac dysrhythmia noted. Impressions: Chest X-Ray 10/10/19 00:00 IMPRESSION: Stable cardiomegaly. No other significant findings. Assessment & Plan - Diagnosis (1) Septic arthritis of knee, right Qualifiers: Septic arthritis organism: due to other bacteria Qualified Code(s): M00.861 - Arthritis due to other bacteria, right knee Is this a current diagnosis for this admission?: Yes (2) Coronary artery disease Qualifiers: Coronary Disease-Associated Artery/Lesion type: bypass graft Associated an jose: without angina Is this a current diagnosis for this admission?: Yes (3) Diabetes mellitus type 2 in nonobese Is this a current diagnosis for this admission?: Yes (4) ESRD (end stage renal disease) on dialysis Is this a current diagnosis for this admission?: Yes (5) Hypertension Qualifiers: Hypertension type: essential hypertension Qualified Code(s): I10 - Essential (primary) hypertension Is this a current diagnosis for this admission?: Yes - Notes Notes: Patient remains stable without any cardiac decompensation. Patient was previously cleared from cardiac standpoint. We will continue to follow. Continue current management plans. - Time Time with patient: 15-25 minutes - More than 50% of the time spent coordinating care, discussing management plans with involved caregivers. Management plans discussed with involved personnels. Medical decision making was of moderate to high complexity, patient's has multiple comorbidities. Medications reviewed and adjusted accordingly: Yes
--- NOTE | 2019-10-15 19:33 | PDOC PROGRESS REPORT ---
Subjective Progress Note for:: 10/15/19 Subjective:: Patient was seen yesterday on evening rounds. He was admitted for possible septic arthritis of the replaced right knee. Patient however denied any chest pain. He has some shortness of breath. Patient noted to have an abnormal EKG. He is noted to have cardiomegaly on chest x-ray. It is felt that patient may end up needing knee surgery. I was therefore asked to evaluate patient. 10/11/2019: Patient seen in the evening. No significant change from before. Blood cultures so far been negative. 2D echo shows mild to moderately depressed LVEF with evident to suggest CAD. Valves seems thickened but without any definite vegetations. 10/12/2019: Patient remains stable. No significant change from yesterday. Still has swollen right knee with some increased local temperature. Plan is for drainage of the right knee. 10/15/2019: Was seen postop in the evening. He is noted to be doing well. He underwent irrigation and lavage as well as some debridement of the right knee. No complications were noted. Patient currently feeling fine. Reason For Visit: RIGHT PERIPROSTHTIC KNEE INFECTION Physical Exam Vital Signs: Temp Pulse Resp BP Pulse Ox 97.8 F 59 L 14 129/50 H 100 10/15/19 17:13 10/15/19 17:13 10/15/19 17:13 10/15/19 17:13 10/15/19 17:13 Intake & Output 10/14/19 10/15/19 10/16/19 06:59 06:59 06:59 Intake Total 737 1025 1300 Output Total 75 550 3300 Balance 662 475 -2000 Weight 66.2 kg 67.3 kg Exam: GENERAL: well-nourished and in no acute distress. Alert and oriented x3 HEAD: Atraumatic, normocephalic. EYES: NÉSTOR, sclera anicteric, conjunctiva are normal. ENT: Moist mucous membranes. No oral ulcerations or bleeding gums noted. No obvious ear, nose or throat abnormalities noted. NECK: supple without lymphadenopathy. Trachea is central. No cervical or axillary lymphadenopathy noted. Carotids are 2+, JVD WNL LUNGS: Breath sounds clear bilaterally. No wheezes rales or rhonchi noted. No significant dullness noted on percussion. CHEST: Palpation of the chest wall shows no significant chest wall tenderness. HEART: [place] [employer], No PSH, 1/6 ZEFERINO aortic area, 1/6 fang systolic murmur mitral area, no rubs, no gallops. ABDOMEN: Soft, no significant tenderness appreciated, normoactive bowel sounds. No guarding, no rebound. No rigidity noted . No masses appreciated. EXTREMITIES: Pedal pulses are 1-2+, no calf tenderness noted. No clubbing or cyanosis. negative pedal edema noted. Patient is status post right knee surgery. AV fistula noted right forearm, Port-A-Cath noted left shoulder region. NEUROLOGICAL: Focused neurological exam showed no significant neurologic deficit. Normal speech, no focal weakness appreciated. PSYCH: Normal mood, normal affect. Judgment and insight within normal limits. SKIN: No significant ecchymosis, skin is noted to be warm. MUSCULOSKELETAL EXAM: No significant acute joint swelling noted. Results Laboratory Results: 10/15/19 06:14 10/15/19 06:14 10/15/19 10/15/19 06:14 06:14 WBC 6.9 RBC 2.84 L Hgb 9.5 L Hct 28.4 L MCV 100 H MCH 33.5 H MCHC 33.5 RDW 17.7 H Plt Count 119 L Seg Neutrophils % 46.4 Sodium 138.7 Potassium 4.2 Chloride 102 Carbon Dioxide 23 Anion Gap 14 BUN 76 H Creatinine 9.52 H Est GFR ( Amer) 6 L Glucose 100 Calcium 8.1 L 10/10/19 14:26 Blood Blood Culture - Final NO GROWTH IN 5 DAYS 10/10/19 13:12 Blood Blood Culture - Final NO GROWTH IN 5 DAYS EKG Comments: Telemetry strips from chart reviewed. No significant cardiac dysrhythmia was noted. Impressions: Chest X-Ray 10/10/19 00:00 IMPRESSION: Stable cardiomegaly. No other significant findings. Knee X-Ray 10/15/19 16:23 IMPRESSION: Right total knee arthroplasty. Refer to operative note for further information. Assessment & Plan - Diagnosis (1) Septic arthritis of knee, right Qualifiers: Septic arthritis organism: due to other bacteria Qualified Code(s): M00.861 - Arthritis due to other bacteria, right knee Is this a current diagnosis for this admission?: Yes (2) Coronary artery disease Qualifiers: Coronary Disease-Associated Artery/Lesion type: bypass graft Associated angina: without angina Is this a current diagnosis for this admission?: Yes (3) Diabetes mellitus type 2 in nonobese Is this a current diagnosis for this admission?: Yes (4) ESRD (end stage renal disease) on dialysis Is this a current diagnosis for this admission?: Yes (5) Hypertension Qualifiers: Hypertension type: essential hypertension Qualified Code(s): I10 - Essential (primary) hypertension Is this a current diagnosis for this admission?: Yes - Notes Notes: Patient status post knee surgery, he has done well. Patient also noted to be tolerating dialysis. Patient will benefit now from ambulation. Patient medical regimen reviewed and is noted to be satisfactory. - Time Time with patient: 15-25 minutes - Discussed with family members Medications reviewed and adjusted accordingly: Yes
[2019-10-15] MEDS: OXYCODONE HCL SR 10 MG TABLET PO SCH (21:34)
[2019-10-15] MEDS: CEFEPIME HCL 0.5 GM in NORMAL SALINE 25 ML IV SCH (22:08)
[2019-10-15] MEDS ORDERED: ACETAMINOPHEN 1,000 MG/100 ML RTUPB IV ONE (22:20)
[2019-10-16] MEDS: OXYCODONE HCL IR 5 MG TABLET PO PRN ×4 (03:41→17:26)
[2019-10-16] MEDS ORDERED: VANCOMYCIN HCL 1,000 MG in DEXTROSE 5%-WATER 250 ML IV ONE (04:20)
[2019-10-16] MEDS: PANTOPRAZOLE SODIUM 40 MG TABLET.DR PO SCH (05:07)
[2019-10-16 06:34] LABS: HEMATOCRIT 31.4 % (37.9-51.0); HEMOGLOBIN 10.3 g/dL (13.5-17.0); MEAN CORPUSCULAR HEMOGLOBIN 33.2 pg (27.0-33.4); MEAN CORPUSCULAR HGB CONC 32.8 g/dL (32.0-36.0); MEAN CORPUSCULAR VOLUME 101 fl (80-97); PLATELET COUNT 121 10^3/uL (150-450); RED CELL DISTRIBUTION WIDTH 17.8 % (11.5-14.0); WHITE BLOOD COUNT 7.1 10^3/uL (4.0-10.5)
[2019-10-16 07:03] LABS: ANION GAP 12 (5-19); CALCIUM 8.4 mg/dL (8.4-10.2); CARBON DIOXIDE 27 mmol/L (22-30); CHLORIDE 96 mmol/L (98-107); GLUCOSE 134 mg/dL (75-110); POTASSIUM 4.4 mmol/L (3.6-5.0)
--- NOTE | 2019-10-16 07:03 | PDOC PROGRESS REPORT ---
Subjective Progress Note for:: 10/16/19 Reason For Visit: RIGHT PERIPROSTHTIC KNEE INFECTION 84-year-old male status post right knee revision arthroplasty yesterday. Uneventful night. Somewhat confused this morning questioning whether or not her surgery would be today. Physical Exam Vital Signs: Temp Pulse Resp BP Pulse Ox 36.3 C 68 19 150/53 H 100 10/16/19 03:52 10/16/19 03:52 10/16/19 03:52 10/16/19 03:52 10/16/19 03:52 Intake & Output 10/15/19 10/16/19 10/17/19 06:59 06:59 06:59 Intake Total 1025 5184 Output Total 550 6809 Balance 475 -1625 Weight 67.3 kg General appearance: PRESENT: no acute distress Head exam: PRESENT: normocephalic Respiratory exam: PRESENT: unlabored Cardiovascular exam: PRESENT: RRR Vascular exam: PRESENT: normal capillary refill Extremities exam: PRESENT: other - Right knee dressing clean dry and intact. Distal neurovascular examination is intact. Results Laboratory Results: 10/16/19 06:11 10/15/19 10/15/19 10/16/19 06:14 06:14 06:11 WBC 6.9 7.1 RBC 2.84 L 3.10 L Hgb 9.5 L 10.3 L Hct 28.4 L 31.4 L MCV 100 H 101 H MCH 33.5 H 33.2 MCHC 33.5 32.8 RDW 17.7 H 17.8 H Plt Count 119 L 121 L Seg Neutrophils % 46.4 Sodium 138.7 Potassium 4.2 Chloride 102 Carbon Dioxide 23 Anion Gap 14 BUN 76 H Creatinine 9.52 H Est GFR ( Amer) 6 L Glucose 100 Calcium 8.1 L 10/10/19 14:26 Blood Blood Culture - Final NO GROWTH IN 5 DAYS 10/10/19 13:12 Blood Blood Culture - Final NO GROWTH IN 5 DAYS Impressions: Chest X-Ray 10/10/19 00:00 IMPRESSION: Stable cardiomegaly. No other significant findings. Knee X-Ray 10/15/19 16:23 IMPRESSION: Right total knee arthroplasty. Refer to operative note for further information. Status: Imported from PACS Assessment & Plan - Diagnosis (1) Septic arthritis of knee, right Qualifiers: Septic arthritis organism: due to other bacteria Qualified Code(s): M00.861 - Arthritis due to other bacteria, right knee Is this a current diagnosis for this admission?: Yes Plan: Anticipate 6 weeks of IV antibiotic therapy potentially delivered during dialysis? Patient can be mobilized with physical therapy and weightbearing as t olerated basis. From an orthopedic standpoint he potentially could be discharged home tomorrow with home health services - Time Time Spent with patient: 15-24 minutes Anticipated discharge: Home with Homehealth Within: Other
[2019-10-16 07:29] LABS: BLOOD UREA NITROGEN 40 mg/dL (7-20)
--- NOTE | 2019-10-16 07:59 | PDOC PROGRESS REPORT ---
Subjective Progress Note for:: 10/16/19 Subjective:: Patient underwent for the right knee incisions and cleaning the arthroplasty Patient is currently doing better Patient's denied any chest pain no short of breath Complaining some mild cough Patient dialyzed yesterday Patient is currently getting the IV cefepime Dr. Dodge saw the patient this morning suggested physical therapy and continues to antibiotic for 6-week Reason For Visit: RIGHT PERIPROSTHTIC KNEE INFECTION Physical Exam Vital Signs: Temp Pulse Resp BP Pulse Ox 98.4 F 64 17 131/54 H 98 10/16/19 07:20 10/16/19 07:20 10/16/19 07:20 10/16/19 07:20 10/16/19 07:20 Intake & Output 10/15/19 10/16/19 10/17/19 06:59 06:59 06:59 Intake Total 1025 5444 Output Total 550 6959 Balance 475 -1515 Weight 67.3 kg 66.9 kg General appearance: PRESENT: no acute distress, well-developed, well-nourished Head exam: PRESENT: atraumatic, normocephalic Eye exam: PRESENT: conjunctiva pink, EOMI, PERRLA. ABSENT: scleral icterus Ear exam: PRESENT: normal external ear exam Mouth exam: PRESENT: moist, tongue midline Neck exam: PRESENT: full ROM. ABSENT: carotid bruit, JVD, lymphadenopathy, thyromegaly Respiratory exam: PRESENT: clear to auscultation lucien Cardiovascular exam: PRESENT: RRR. ABSENT: diastolic murmur, rubs, systolic murmur Pulses: PRESENT: normal dorsalis pedis pul, +2 pedal pulses bilateral Vascular exam: PRESENT: normal capillary refill GI/Abdominal exam: PRESENT: normal bowel sounds, soft. ABSENT: distended, guarding, mass, organolmegaly, rebound, tenderness Rectal exam: PRESENT: deferred Extremities exam: ABSENT: pedal edema Additional comments: Right knee the dressing is intact Neurological exam: PRESENT: alert, awake, oriented to person, oriented to place, oriented to time, oriented to situation, CN II-XII grossly intact. ABSENT: motor sensory deficit Psychiatric exam: PRESENT: appropriate affect, normal mood. ABSENT: homicidal ideation, suicidal ideation Skin exam: PRESENT: dry, intact, warm. ABSENT: cyanosis, rash Results Laboratory Results: 10/16/19 06:11 10/16/19 06:11 10/15/19 10/16/19 10/16/19 15:49 06:11 06:11 WBC 7.1 RBC 3.10 L Hgb 10.3 L Hct 31.4 L MCV 101 H MCH 33.2 MCHC 32.8 RDW 17.8 H Plt Count 121 L Sodium 134.5 L Potassium 4.4 Chloride 96 L Carbon Dioxide 27 Anion Gap 12 BUN 40 H D Creatinine 5.75 H Est GFR ( Amer) 11 L Glucose 134 H Calcium 8.4 Blood Type O POSITIVE Antibody Screen POSITIVE 10/10/19 14:26 Blood Blood Culture - Final NO GROWTH IN 5 DAYS 10/10/19 13:12 Blood Blood Culture - Final NO GROWTH IN 5 DAYS Impressions: Chest X-Ray 10/10/19 00:00 IMPRESSION: Stable cardiomegaly. No other significant findings. Knee X-Ray 10/15/19 16:23 IMPRESSION: Right total knee arthroplasty. Refer to operative note for further information. Assessment & Plan - Diagnosis (1) Septic arthritis of knee, right Qualifiers: Septic arthritis organism: due to other bacteria Qualified Code(s): M00.861 - Arthritis due to other bacteria, right knee Is this a current diagnosis for this admission?: Yes Plan: This post surgery We will reconsult the ID for further recommendations with the need to IV daily antibiotic or through the dialysis (2) Coronary artery disease Qualifiers: Coronary Disease-Associated Artery/Lesion type: bypass graft Associated angina: without angina Is this a current diagnosis for this admission?: Yes Plan: Currently all stable per cardiology (3) ESRD (end stage renal disease) on dialysis Is this a current diagnosis for this admission?: Yes Plan: Currently on hemodialysis consult the nephrology (4) Hypertension Qualifiers: Hypertension type: essential hypertension Qualified Code(s): I10 - Essential (primary) hypertension Is this a current diagnosis for this admission?: Yes Plan: Currently all stable (5) Multiple myeloma Qualifiers: Multiple myeloma remission status: not in remission Qualified Code(s): C90.00 - Multiple myeloma not having achieved remission Is this a current diagnosis for this admission?: Yes Plan: Currently follow with oncology (6) Pseudomonal arthritis Is this a current diagnosis for this admission?: Yes Plan: Continues to IV antibiotic - Time Time Spent with patient: 25-34 minutes Level of Care: IMCU Medications reviewed and adjusted accordingly: Yes Anticipated discharge: Other Within: Other - Plan Summary Plan Summary: Continues to IV antibiotic Wait for the culture Continues follow-up with the Ortho Consult the site planner for further assessment the patient
[2019-10-16] MEDS ORDERED: IPRATROPIUM/ALBUTEROL 0.5-2.5 MG/3 ML AMPUL NEB PRN (08:09)
--- NOTE | 2019-10-16 08:27 | PDOC PROGRESS REPORT ---
Subjective Progress Note for:: 10/16/19 Subjective:: Status post knee washout, patient is having a little bit more pain now, but overall doing well Reason For Visit: RIGHT PERIPROSTHTIC KNEE INFECTION Physical Exam Vital Signs: Temp Pulse Resp BP Pulse Ox 98.4 F 64 17 131/54 H 98 10/16/19 07:20 10/16/19 07:20 10/16/19 07:20 10/16/19 07:20 10/16/19 07:20 Intake & Output 10/15/19 10/16/19 10/17/19 06:59 06:59 06:59 Intake Total 1025 5444 Output Total 550 6959 Balance 475 -1515 Weight 67.3 kg 66.9 kg General appearance: PRESENT: no acute distress, well-developed, well-nourished Head exam: PRESENT: atraumatic, normocephalic Eye exam: PRESENT: conjunctiva pink, EOMI, PERRLA. ABSENT: scleral icterus Ear exam: PRESENT: normal external ear exam Mouth exam: PRESENT: moist, tongue midline Neck exam: ABSENT: carotid bruit, JVD, lymphadenopathy, thyromegaly Respiratory exam: PRESENT: clear to auscultation lucien. ABSENT: rales, rhonchi, wheezes Cardiovascular exam: PRESENT: RRR. ABSENT: diastolic murmur, rubs, systolic murmur Pulses: PRESENT: normal dorsalis pedis pul Vascular exam: PRESENT: normal capillary refill GI/Abdominal exam: PRESENT: normal bowel sounds, soft. ABSENT: distended, guarding, mass, organolmegaly, rebound, tenderness Rectal exam: PRESENT: deferred Extremities exam: PRESENT: full ROM. ABSENT: calf tenderness, clubbing, pedal edema Neurological exam: PRESENT: alert, awake, oriented to person, oriented to place, oriented to time, oriented to situation, CN II-XII grossly intact. ABSENT: motor sensory deficit Psychiatric exam: PRESENT: appropriate affect, normal mood. ABSENT: homicidal ideation, suicidal ideation Skin exam: PRESENT: dry, intact, warm. ABSENT: cyanosis, rash Results Laboratory Results: 10/16/19 06:11 10/16/19 06:11 10/15/19 10/16/19 10/16/19 15:49 06:11 06:11 WBC 7.1 RBC 3.10 L Hgb 10.3 L Hct 31.4 L MCV 101 H MCH 33.2 MCHC 32.8 RDW 17.8 H Plt Count 121 L Sodium 134.5 L Potassium 4.4 Chloride 96 L Carbon Dioxide 27 Anion Gap 12 BUN 40 H D Creatinine 5.75 H Est GFR ( Amer) 11 L Glucose 134 H Calcium 8.4 Blood Type O POSITIVE Antibody Screen POSITIVE 10/10/19 14:26 Blood Blood Culture - Final NO GROWTH IN 5 DAYS 10/10/19 13:12 Blood Blood Culture - Final NO GROWTH IN 5 DAYS Impressions: Chest X-Ray 10/10/19 00:00 IMPRESSION: Stable cardiomegaly. No other significant findings. Knee X-Ray 10/15/19 16:23 IMPRESSION: Right total knee arthroplasty. Refer to operative note for further information. Assessment & Plan - Diagnosis (1) Septic arthritis of knee, right Qualifiers: Septic arthritis organism: due to other bacteria Qualified Code(s): M00.861 - Arthritis due to other bacteria, right knee Is this a current diagnosis for this admission?: Yes Plan: Pseudomonas septic arthritis, washout complete, awaiting infectious disease rec ommendations for length of therapy (2) Multiple myeloma Qualifiers: Multiple myeloma remission status: not in remission Qualified Code(s): C90.00 - Multiple myeloma not having achieved remission Is this a current diagnosis for this admission?: Yes Plan: We will need to hold all therapy until we are able to get access to treat (3) Anemia Qualifiers: Anemia type: due to chronic kidney disease Chronic kidney disease stage: on chronic dialysis Qualified Code(s): N18.6 - End stage renal disease; D63.1 - Anemia in chronic kidney disease; Z99.2 - Dependence on renal dialysis Is this a current diagnosis for this admission?: Yes Plan: Hemoglobin stable - Time Time Spent with patient: 35 or more minutes - Inpatient Certification Based on my medical assessment, after consideration of the patient's comorbidities, presenting symptoms, or acuity I expect that the services needed warrant INPATIENT care.: Yes I certify that my determination is in accordance with my understanding of Medicare's requirements for reasonable and necessary INPATIENT services [42 CFR 412.3e].: Yes Medical Necessity: Need for IV Antibiotics
[2019-10-16] MEDS: ONDANSETRON 4 MG TAB.RAPDIS PO PRN ×2 (08:28→17:25)
[2019-10-16] MEDS: CALCIUM ACETATE 667 MG CAPSULE PO SCH ×3 (08:28→17:26)
[2019-10-16] MEDS: OXYCODONE HCL SR 10 MG TABLET PO SCH ×2 (10:58→21:55)
[2019-10-16] MEDS: PRENATAL VITAMIN W DHA CAPSULE PO SCH (10:58)
[2019-10-16] MEDS: METOPROLOL SUCCINATE 25 MG TAB.SR.24H PO SCH (10:58)
[2019-10-16] MEDS: FINASTERIDE 5 MG TABLET PO SCH (10:59)
[2019-10-16] MEDS: DOCUSATE SODIUM 100 MG CAPSULE PO SCH ×2 (10:59→17:26)
[2019-10-16] MEDS: FUROSEMIDE 20 MG TABLET PO SCH (10:59)
[2019-10-16] MEDS: SENNOSIDES/DOCUSATE 8.6-50 MG 1 EACH TABLET PO SCH ×2 (10:59→17:26)
[2019-10-16] MEDS: ATORVASTATIN CALCIUM 80 MG TABLET PO SCH (10:59)
[2019-10-16] MEDS: VITAMIN B COMPLEX TABLET PO SCH (10:59)
[2019-10-16] MEDS: AMLODIPINE BESYLATE 5 MG TABLET PO SCH (10:59)
--- NOTE | 2019-10-16 11:22 | PDOC PROGRESS REPORT ---
Subjective Progress Note for:: 10/16/19 Subjective:: Patient underwent right knee revision arthroplasty yesterday. So far he seems to be doing okay except for pain on movement of the right knee. Dr. Dodge indicated the need for [address] Song is consulting ID for the appropriate IV antibiotics that can be given during dialysis treatment 3 times a week only. Reason For Visit: RIGHT PERIPROSTHTIC KNEE INFECTION Physical Exam Vital Signs: Temp Pulse Resp BP Pulse Ox 98.4 F 64 17 131/54 H 98 10/16/19 07:20 10/16/19 07:20 10/16/19 07:20 10/16/19 07:20 10/16/19 07:20 Intake & Output 10/15/19 10/16/19 10/17/19 06:59 06:59 06:59 Intake Total 1025 5444 Output Total 550 6959 Balance 475 -1515 Weight 67.3 kg 66.9 kg Exam: General appearance: PRESENT: no acute distress, cooperative, well-developed, well-nourished Head exam: PRESENT: atraumatic, normocephalic Eye exam: PRESENT: conjunctiva pink, PERRLA. ABSENT: scleral icterus Neck exam: ABSENT: JVD Respiratory exam: PRESENT: Normal breath sounds. ABSENT: crackles, rales, rho nchi, unlabored, wheezes Cardiovascular exam: PRESENT: Regular rate rhythm -+S1, +S2. ABSENT: diastolic murmur, systolic murmur GI/Abdominal exam: PRESENT: normal bowel sounds, soft. ABSENT: guarding, mass, tenderness Extremities exam: ABSENT: No edema; right knee and Benito wrap bandage Neurological exam: PRESENT: alert, awake, oriented to person, place and time. Skin exam: PRESENT: dry, warm, Results Laboratory Results: 10/16/19 06:11 10/16/19 06:11 10/15/19 10/16/19 10/16/19 15:49 06:11 06:11 WBC 7.1 RBC 3.10 L Hgb 10.3 L Hct 31.4 L MCV 101 H MCH 33.2 MCHC 32.8 RDW 17.8 H Plt Count 121 L Sodium 134.5 L Potassium 4.4 Chloride 96 L Carbon Dioxide 27 Anion Gap 12 BUN 40 H D Creatinine 5.75 H Est GFR ( Amer) 11 L Glucose 134 H Calcium 8.4 Blood Type O POSITIVE Antibody Screen POSITIVE 10/10/19 14:26 Blood Blood Culture - Final NO GROWTH IN 5 DAYS 10/10/19 13:12 Blood Blood Culture - Final NO GROWTH IN 5 DAYS Impressions: Chest X-Ray 10/10/19 00:00 IMPRESSION: Stable cardiomegaly. No other significant findings. Knee X-Ray 10/15/19 16:23 IMPRESSION: Right total knee arthroplasty. Refer to operative note for further information. Assessment & Plan - Diagnosis (1) Septic joint of left knee joint Qualifiers: Septic arthritis organism: due to other bacteria Qualified Code(s): M00.862 - Arthritis due to other bacteria, left knee Is this a current diagnosis for this admission?: Yes Plan: Secondary to pseudomonas aeruginosa in the patient with prosthetic hardware. Status post right knee revision arthroplasty, 10/11/[address] Dodge. Currently on IV cefepime. Awaiting further ID recommendations regarding appropriate IV antibiotic regimen that can can be given during dialysis 3 times a week for 6 weeks. (2) ESRD (end stage renal disease) on dialysis Is this a current diagnosis for this admission?: Yes Plan: Dialysis for tomorrow. (3) Hypertension Qualifiers: Hypertension type: essential hypertension Qualified Code(s): I10 - Essential (primary) hypertension Is this a current diagnosis for this admission?: Yes Plan: Adequately controlled. Hold blood pressure medication prior to dialysis briana tment. (4) Multiple myeloma Qualifiers: Multiple myeloma remission status: not in remission Qualified Code(s): C90.00 - Multiple myeloma not having achieved remission Is this a current diagnosis for this admission?: Yes (5) Pseudomonal arthritis Is this a current diagnosis for this admission?: Yes Plan: On IV cefepime monotherapy per ID. (6) Pseudomonas aeruginosa colonization Is this a current diagnosis for this admission?: Yes - Time Time with patient: 15-25 minutes
[2019-10-16] MEDS: CEFEPIME HCL 0.5 GM in NORMAL SALINE 25 ML IV SCH (21:55)
[2019-10-17] MEDS ORDERED: NORMAL SALINE 1000 ML 1,000 ML IV PRN (05:00)
[2019-10-17] MEDS: PANTOPRAZOLE SODIUM 40 MG TABLET.DR PO SCH (05:30)
[2019-10-17 05:38] LABS: HEMATOCRIT 27.8 % (37.9-51.0); HEMOGLOBIN 9.5 g/dL (13.5-17.0); MEAN CORPUSCULAR HEMOGLOBIN 33.8 pg (27.0-33.4); MEAN CORPUSCULAR VOLUME 99 fl (80-97); PLATELET COUNT 127 10^3/uL (150-450); RED CELL DISTRIBUTION WIDTH 17.6 % (11.5-14.0); WHITE BLOOD COUNT 7.3 10^3/uL (4.0-10.5)
[2019-10-17 05:52] LABS: ANION GAP 11 (5-19); BLOOD UREA NITROGEN 51 mg/dL (7-20); CALCIUM 8.2 mg/dL (8.4-10.2); CARBON DIOXIDE 27 mmol/L (22-30); CHLORIDE 93 mmol/L (98-107); GLUCOSE 108 mg/dL (75-110); POTASSIUM 4.7 mmol/L (3.6-5.0)
--- NOTE | 2019-10-17 08:06 | PDOC PROGRESS REPORT ---
Subjective Progress Note for:: 10/17/19 Subjective:: Awaiting ID recs on length, type and admin of atbx. Otherwise pt improving Reason For Visit: RIGHT PERIPROSTHTIC KNEE INFECTION Physical Exam Vital Signs: Temp Pulse Resp BP Pulse Ox 98.5 F 68 20 120/56 L 96 10/17/19 04:22 10/17/19 04:22 10/17/19 04:22 10/17/19 04:22 10/17/19 04:22 Intake & Output 10/16/19 10/17/19 10/18/19 06:59 06:59 06:59 Intake Total 5444 465 Output Total 6959 1050 Balance -1515 -585 Weight 66.9 kg General appearance: PRESENT: no acute distress, well-developed, well-nourished Head exam: PRESENT: atraumatic, normocephalic Eye exam: PRESENT: conjunctiva pink, EOMI, PERRLA. ABSENT: scleral icterus Ear exam: PRESENT: normal external ear exam Mouth exam: PRESENT: moist, tongue midline Neck exam: ABSENT: carotid bruit, JVD, lymphadenopathy, thyromegaly Respiratory exam: PRESENT: clear to auscultation lucien. ABSENT: rales, rhonchi, wheezes Cardiovascular exam: PRESENT: RRR. ABSENT: diastolic murmur, rubs, systolic murmur Pulses: PRESENT: normal dorsalis pedis pul Vascular exam: PRESENT: normal capillary refill GI/Abdominal exam: PRESENT: normal bowel sounds, soft. ABSENT: distended, guarding, mass, organolmegaly, rebound, tenderness Rectal exam: PRESENT: deferred Extremities exam: PRESENT: full ROM. ABSENT: calf tenderness, clubbing, pedal edema Neurological exam: PRESENT: alert, awake, oriented to person, oriented to place, oriented to time, oriented to situation, CN II-XII grossly intact. ABSENT: motor sensory deficit Psychiatric exam: PRESENT: appropriate affect, normal mood. ABSENT: homicidal ideation, suicidal ideation Skin exam: PRESENT: dry, intact, warm. ABSENT: cyanosis, rash Results Laboratory Results: 10/17/19 05:19 10/17/19 05:19 10/17/19 10/17/19 05:19 05:19 WBC 7.3 RBC 2.80 L Hgb 9.5 L Hct 27.8 L MCV 99 H MCH 33.8 H MCHC 34.0 RDW 17.6 H Plt Count 127 L Sodium 130.9 L Potassium 4.7 Chloride 93 L Carbon Dioxide 27 Anion Gap 11 BUN 51 H Creatinine 7.47 H Est GFR ( Amer) 8 L Glucose 108 Calcium 8.2 L Impressions: Chest X-Ray 10/10/19 00:00 IMPRESSION: Stable cardiomegaly. No other significant findings. Knee X-Ray 10/15/19 16:23 IMPRESSION: Right total knee arthroplasty. Refer to operative note for further information. Assessment & Plan - Diagnosis (1) Septic arthritis of knee, right Qualifiers: Septic arthritis organism: due to other bacteria Qualified Code(s): M00.861 - Arthritis due to other bacteria, right knee Is this a current diagnosis for this admission?: Yes Plan: IMproved on ATBx and post washout of knee, cont per ID/ortho/primary team (2) Multiple myeloma Qualifiers: Multiple myeloma remission status: not in remission Qualified Code(s): C90.00 - Multiple myeloma not having achieved remission Is this a current diagnosis for this admission?: Yes Plan: Holding all therapy (3) Anemia Qualifiers: Anemia type: due to chronic kidney disease Chronic kidney disease stage: on chronic dialysis Qualified Code(s): N18.6 - End stage renal disease; D63.1 - Anemia in chronic kidney disease; Z99.2 - Dependence on renal dialysis Is this a current diagnosis for this admission?: Yes Plan: Stable - Time Time Spent with patient: 15-24 minutes
--- NOTE | 2019-10-17 08:23 | Progress Note ---
Provider Note Provider Note: [facility] Telephone Advice - Folow Up Chart reviewed. Mr. Bocanegra with multiple myeloma, ESRD on HD who was recently admitted due to Pseudomonas aeruginosa bacteremia from an infected port which was already removed on September 21 and now with right knee synovial fluid positive for Pseudomonas (10/02). Patient was admitted on 10/10. Blood cultures from 10/09 were negative. He was evaluated by orthopedics and he was started on antibiotics. On 10/15 he had irrigation, debridement with knee revision arthroplasty. Synovial culture in process but Gram stain had GNRs. He has been afebrile, HD stable, no leukocytosis. Vital Signs: Temp Pulse Resp BP Pulse Ox 98.5 F 68 20 120/56 L 96 10/17/19 04:22 10/17/19 04:22 10/17/19 04:22 10/17/19 04:22 10/17/19 04:22 Intake & Output 10/16/19 10/17/19 10/18/19 06:59 06:59 06:59 Intake Total 5444 465 Output Total 6930 1050 Balance -1515 -585 Weight 66.9 kg Weight/Height Weight 66.9 kg Height 5 ft 4 in Laboratories: 10/17/19 05:19 10/17/19 05:19 MCV 99 fl (80-97) H 10/17/19 05:19 MCH 33.8 pg (27.0-33.4) H 10/17/19 05:19 MCHC 34.0 g/dL (32.0-36.0) 10/17/19 05:19 RDW 17.6 % (11.5-14.0) H 10/17/19 05:19 Seg Neutrophils % 46.4 % (42-78) 10/15/19 06:14 Chloride 93 mmol/L (98-107) L 10/17/19 05:19 Carbon Dioxide 27 mmol/L (22-30) 10/17/19 05:19 Anion Gap 11 (5-19) 10/17/19 05:19 Est GFR ( Amer) 8 (>60) L 10/17/19 05:19 Glucose 108 mg/dL (75-110) 10/17/19 05:19 Lactic Acid 1.6 mmol/L (0.7-2.1) 10/10/19 14:26 Calcium 8.2 mg/dL (8.4-10.2) L 10/17/19 05:19 Magnesium 1.4 mg/dL (1.6-2.3) L 10/11/19 05:30 C-Reactive Protein 12.4 mg/L (<10.0) H 10/12/19 13:37 Triglycerides 95 mg/dL (<150) 10/11/19 05:30 Cholesterol 102.56 mg/dL (0-200) 10/11/19 05:30 LDL Cholesterol Direct 45 mg/dL (<100) 10/11/19 05:30 VLDL Cholesterol 19.0 mg/dL (10-31) 10/11/19 05:30 HDL Cholesterol 35 mg/dL (>40) L 10/11/19 05:30 Urine Color YELLOW 10/10/19 15:50 Urine Appearance CLEAR 10/10/19 15:50 Urine pH 8.0 (5.0-9.0) 10/10/19 15:50 Ur Specific [place] 1.009 10/10/19 15:50 Urine Protein 30 mg/dL (NEGATIVE) H 10/10/19 15:50 Urine Glucose (UA) 150 mg/dL (NEGATIVE) H 10/10/19 15:50 Urine Ketones NEGATIVE mg/dL (NEGATIVE) 10/10/19 15:50 Urine Blood NEGATIVE (NEGATIVE) 10/10/19 15:50 Urine Nitrite NEGATIVE (NEGATIVE) 10/10/19 15:50 Ur Leukocyte Esterase NEGATIVE (NEGATIVE) 10/10/19 15:50 Urine WBC (Auto) 0 /HPF 10/10/19 15:50 Urine RBC (Auto) 0 /HPF 10/10/19 15:50 Blood Type O POSITIVE 10/15/19 15:49 Antibody Screen POSITIVE 10/15/19 15:49 Microbiology: Blood Cultures 10/09 Negative Synovial Fluid culture: 10/02 Pseudomonas aeruginosa 10/15 GNR Assessment and Recommendations: Patient with 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 Blood cultures negative, synovial fluid with GNR, culture in process. Inflammation markers not alarmingly high. He is ready to be discharged home. Ceftazidime with HD is an alternative to avoid a PICC line with potential complications associated with it. He will need 6 weeks from the day of the surgery (EOT 11/26/19). Please monitor CBC, CMP, ESR, CRP while on therapy. At completion of 6 weeks, patient may need suppressive therapy with ciprofloxacin (renally adjusted for HD) after weighing risks vs benefits. Patient will need follow up with [facility] as he might need suppressive therapy. PCP will have to order a referral for new patient with [facility] in order to make an appointment in 4-6 weeks. ID office phone number [phone] and Fax number [phone]. Please call back if any questions. Jessica Brown MD [facility] [id number]
--- NOTE | 2019-10-17 08:48 | PDOC PROGRESS REPORT ---
Subjective Progress Note for:: 10/17/19 Reason For Visit: RIGHT PERIPROSTHTIC KNEE INFECTION 84-year-old male postop day 2 status post right knee I&D/revision arthroplasty. Patient uneventful no night. What appeared to be confusion yesterday morning seems to have cleared. Physical Exam Vital Signs: Temp Pulse Resp BP Pulse Ox 36.9 C 84 20 120/56 L 96 10/17/19 04:22 10/17/19 07:00 10/17/19 04:22 10/17/19 04:22 10/17/19 04:22 Intake & Output 10/16/19 10/17/19 10/18/19 06:59 06:59 06:59 Intake Total 5444 465 Output Total 1363 1050 Balance -1515 -585 Weight 66.9 kg Physical Exam: Patient is alert, oriented, and appropriate this morning. General appearance: PRESENT: no acute distress Head exam: PRESENT: normocephalic Respiratory exam: PRESENT: unlabored Cardiovascular exam: PRESENT: RRR Pulses: PRESENT: +1 pedal pulses bilateral Vascular exam: PRESENT: normal capillary refill GI/Abdominal exam: PRESENT: soft Rectal exam: PRESENT: deferred Extremities exam: PRESENT: other - Right lower extremity compressive dressing to be removed this morning Neurological exam: PRESENT: alert, awake, oriented to person, oriented to place, oriented to time, oriented to situation. ABSENT: motor sensory deficit Psychiatric exam: PRESENT: appropriate affect, normal mood. ABSENT: homicidal ideation, suicidal ideation Skin exam: PRESENT: dry, intact, warm. ABSENT: cyanosis, rash Results Laboratory Results: 10/17/19 05:19 10/17/19 05:19 10/17/19 10/17/19 05:19 05:19 WBC 7.3 RBC 2.80 L Hgb 9.5 L Hct 27.8 L MCV 99 H MCH 33.8 H MCHC 34.0 RDW 17.6 H Plt Count 127 L Sodium 130.9 L Potassium 4.7 Chloride 93 L Carbon Dioxide 27 Anion Gap 11 BUN 51 H Creatinine 7.47 H Est GFR ( Amer) 8 L Glucose 108 Calcium 8.2 L Impressions: Chest X-Ray 10/10/19 00:00 IMPRESSION: Stable cardiomegaly. No other significant findings. Knee X-Ray 10/15/19 16:23 IMPRESSION: Right total knee arthroplasty. Refer to operative note for further information. Status: Imported from PACS Assessment & Plan - Diagnosis (1) Septic arthritis of knee, right Qualifiers: Septic arthritis organism: due to other bacteria Qualified Code(s): M00.861 - Arthritis due to other bacteria, right knee Is this a current diagnosis for this admission?: Yes Plan: Continue antibiotics and physical therapy for weightbearing as tolerated ambulation - Time Time Spent with patient: 15-24 minutes Anticipated discharge: Home with Homehealth Within: Other
[2019-10-17] MEDS: DOCUSATE SODIUM 100 MG CAPSULE PO SCH ×2 (09:08→17:32)
[2019-10-17] MEDS: SENNOSIDES/DOCUSATE 8.6-50 MG 1 EACH TABLET PO SCH ×2 (09:08→17:32)
[2019-10-17] MEDS: CALCIUM ACETATE 667 MG CAPSULE PO SCH ×3 (09:08→17:32)
[2019-10-17] MEDS: OXYCODONE HCL SR 10 MG TABLET PO SCH (09:09)
[2019-10-17] MEDS ORDERED: EPOETIN ALFA-EPBX 3,000 UNIT/ML VIAL (RENAL) IV ONE (10:00)
[2019-10-17] MEDS ORDERED: EPOETIN ALFA-EPBX 2,000 UNIT/ML VIAL (RENAL) IV ONE (10:00)
[2019-10-17] MEDS ORDERED: EPOETIN ALFA-EPBX 5,000 UNITS (ESRD) in SYRINGE IV PRN ×3 (10:24)
--- NOTE | 2019-10-17 10:41 | PDOC PROGRESS REPORT ---
Subjective Progress Note for:: 10/17/19 Subjective:: I am seeing the patient during dialysis. He is comfortable just watching TV during dialysis treatment and does not have any complaints. He still feels the pain when he moves his right knee for which he is getting pain medication every 4 hours. He has no other complications on dialysis so far. Reason For Visit: RIGHT PERIPROSTHTIC KNEE INFECTION Physical Exam Vital Signs: Temp Pulse Resp BP Pulse Ox 98.5 F 84 20 120/56 L 96 10/17/19 04:22 10/17/19 07:00 10/17/19 04:22 10/17/19 04:22 10/17/19 04:22 Intake & Output 10/16/19 10/17/19 10/18/19 06:59 06:59 06:59 Intake Total 5444 465 Output Total 6959 1050 Balance -1515 -585 Weight 66.9 kg Vitals on dialysis: Blood pressure 144/60, heart rate of 52, blood flow rate of 450 mL/min and dialysate flow rate of 800 mL/min. Exam: General appearance: PRESENT: no acute distress, cooperative, well-developed, well-nourished Head exam: PRESENT: atraumatic, normocephalic Eye exam: PRESENT: conjunctiva slightly pale, PERRLA. ABSENT: scleral icterus Neck exam: ABSENT: JVD Respiratory exam: PRESENT: Normal breath sounds. ABSENT: crackles, rales, rhon chi, unlabored, wheezes Cardiovascular exam: PRESENT: Regular rate rhythm -+S1, +S2. ABSENT: diastolic murmur, systolic murmur GI/Abdominal exam: PRESENT: normal bowel sounds, soft. ABSENT: guarding, mass, tenderness Extremities exam: ABSENT: No edema Neurological exam: PRESENT: alert, awake, oriented to person, place and time. Skin exam: PRESENT: dry, warm, Results Laboratory Results: 10/17/19 05:19 10/17/19 05:19 10/17/19 10/17/19 05:19 05:19 WBC 7.3 RBC 2.80 L Hgb 9.5 L Hct 27.8 L MCV 99 H MCH 33.8 H MCHC 34.0 RDW 17.6 H Plt Count 127 L Sodium 130.9 L Potassium 4.7 Chloride 93 L Carbon Dioxide 27 Anion Gap 11 BUN 51 H Creatinine 7.47 H Est GFR ( Amer) 8 L Glucose 108 Calcium 8.2 L Impressions: Chest X-Ray 10/10/19 00:00 IMPRESSION: Stable cardiomegaly. No other significant findings. Knee X-Ray 10/15/19 16:23 IMPRESSION: Right total knee arthroplasty. Refer to operative note for further information. Assessment & Plan - Diagnosis (1) Septic joint of left knee joint Qualifiers: Septic arthritis organism: due to other bacteria Qualified Code(s): M00.862 - Arthritis due to other bacteria, left knee Is this a current diagnosis for this admission?: Yes Plan: Secondary to pseudomonas aeruginosa in the patient with prosthetic hardware. Status post right knee revision arthroplasty, 10/11/[address] Dodge. Currently on IV cefepime. ID recommends patient to have long-term antibiotics until 11/26/2019 with ceftazidime to be given during dialysis. After the 6 weeks of IV antibiotics ID also recommends follow-up with them and possible suppressive therapy with renally dosed ciprofloxacin. I will arrange ceftazidime to be given during dialysis treatment post discharge at [facility]. (2) ESRD (end stage renal disease) on dialysis Is this a current diagnosis for this admission?: Yes Plan: We will do dialysis today for 3 hours, using the patient's AV fistula, with 2 potassium bath, blood flow rate of 400-450 mL per minute, dialysate flow rate of 800 mL per minute, ultrafiltration 2.5 L as tolerated, no heparin and Procrit with 5000 units during dialysis intravenously. Patient is currently being monitored throughout dialysis treatment. (3) Hypertension Qualifiers: Hypertension type: essential hypertension Qualified Code(s): I10 - Essential (primary) hypertension Is this a current diagnosis for this admission?: Yes Plan: Adequately controlled. Hold blood pressure medication prior to dialysis treatment. (4) Anemia in chronic kidney disease (CKD) Is this a current diagnosis for this admission?: Yes Plan: Procrit during dialysis as needed. (5) Multiple myeloma Qualifiers: Multiple myeloma remission status: not in remission Qualified Code(s): C90.00 - Multiple myeloma not having achieved remission Is this a current diagnosis for this admission?: Yes (6) Pseudomonal arthritis Is this a current diagnosis for this admission?: Yes Plan: On IV cefepime monotherapy per ID currently. Upon discharge patient will be switched to ceftazidime to be given q. dialysis treatment until 11/26/2019. (7) Pseudomonas aeruginosa colonization Is this a current diagnosis for this admission?: Yes - Time Time with patient: 15-25 minutes
[2019-10-17] MEDS ORDERED: ONDANSETRON HCL INJ/PF 4 MG/2 ML SDV IV PRN (12:11)
[2019-10-17] MEDS: ONDANSETRON 4 MG TAB.RAPDIS PO PRN ×2 (12:12→18:53)
[2019-10-17] MEDS: METOPROLOL SUCCINATE 25 MG TAB.SR.24H PO SCH (13:04)
[2019-10-17] MEDS: PRENATAL VITAMIN W DHA CAPSULE PO SCH (13:04)
[2019-10-17] MEDS: ATORVASTATIN CALCIUM 80 MG TABLET PO SCH (13:05)
[2019-10-17] MEDS: FUROSEMIDE 20 MG TABLET PO SCH (13:05)
[2019-10-17] MEDS: VITAMIN B COMPLEX TABLET PO SCH (13:05)
[2019-10-17] MEDS: AMLODIPINE BESYLATE 5 MG TABLET PO SCH (13:05)
[2019-10-17] MEDS: OXYCODONE HCL IR 5 MG TABLET PO PRN ×3 (13:05→23:09)
[2019-10-17] MEDS: FINASTERIDE 5 MG TABLET PO SCH (13:05)
--- NOTE | 2019-10-17 13:09 | PDOC PROGRESS REPORT ---
Subjective Progress Note for:: 10/17/19 Subjective:: Patient underwent for the right knee incisions and cleaning the arthroplasty Patient is currently doing better Patient's denied any chest pain no short of breath Complaining some mild cough Patient dialyzed yesterday Patient is currently getting the IV cefepime Dr. Dodge saw the patient this morning suggested physical therapy and continues to antibiotic for 6-week Reason For Visit: RIGHT PERIPROSTHTIC KNEE INFECTION Physical Exam Vital Signs: Temp Pulse Resp BP Pulse Ox 98.5 F 84 20 120/56 L 96 10/17/19 04:22 10/17/19 07:00 10/17/19 04:22 10/17/19 04:22 10/17/19 04:22 Intake & Output 10/16/19 10/17/19 10/18/19 06:59 06:59 06:59 Intake Total 5444 465 Output Total 6959 1050 Balance -1515 -585 Weight 66.9 kg General appearance: PRESENT: no acute distress, well-developed, well-nourished Head exam: PRESENT: atraumatic, normocephalic Eye exam: PRESENT: conjunctiva pink, EOMI, PERRLA. ABSENT: scleral icterus Ear exam: PRESENT: normal external ear exam Mouth exam: PRESENT: moist, tongue midline Neck exam: PRESENT: full ROM. ABSENT: carotid bruit, JVD, lymphadenopathy, thyromegaly Respiratory exam: PRESENT: clear to auscultation lucien Cardiovascular exam: PRESENT: RRR. ABSENT: diastolic murmur, rubs, systolic murmur Pulses: PRESENT: normal dorsalis pedis pul, +2 pedal pulses bilateral Vascular exam: PRESENT: normal capillary refill GI/Abdominal exam: PRESENT: normal bowel sounds, soft. ABSENT: distended, guarding, mass, organolmegaly, rebound, tenderness Rectal exam: PRESENT: deferred Musculoskeletal exam: PRESENT: ambulatory Neurological exam: PRESENT: alert, awake, oriented to person, oriented to place, oriented to time, oriented to situation, CN II-XII grossly intact. ABSENT: motor sensory deficit Psychiatric exam: PRESENT: appropriate affect, normal mood. ABSENT: homicidal ideation, suicidal ideation Skin exam: PRESENT: dry, intact, warm. ABSENT: cyanosis, rash Results Laboratory Results: 10/17/19 05:19 10/17/19 05:19 10/17/19 10/17/19 05:19 05:19 WBC 7.3 RBC 2.80 L Hgb 9.5 L Hct 27.8 L MCV 99 H MCH 33.8 H MCHC 34.0 RDW 17.6 H Plt Count 127 L Sodium 130.9 L Potassium 4.7 Chloride 93 L Carbon Dioxide 27 Anion Gap 11 BUN 51 H Creatinine 7.47 H Est GFR ( Amer) 8 L Glucose 108 Calcium 8.2 L Impressions: Chest X-Ray 10/10/19 00:00 IMPRESSION: Stable cardiomegaly. No other significant findings. Knee X-Ray 10/15/19 16:23 IMPRESSION: Right total knee arthroplasty. Refer to operative note for further information. Assessment & Plan - Diagnosis (1) Septic arthritis of knee, right Qualifiers: Septic arthritis organism: due to other bacteria Qualified Code(s): M00.861 - Arthritis due to other bacteria, right knee Is this a current diagnosis for this admission?: Yes Plan: This post surgery We will reconsult the ID for further recommendations with the need to IV daily antibiotic or through the dialysis (2) Coronary artery disease Qualifiers: Coronary Disease-Associated Artery/Lesion type: bypass graft Associated angina: without angina Is this a current diagnosis for this admission?: Yes Plan: Currently all stable per cardiology (3) ESRD (end stage renal disease) on dialysis Is this a current diagnosis for this admission?: Yes Plan: Currently on hemodialysis consult the nephrology (4) Hypertension Qualifiers: Hypertension type: essential hypertension Qualified Code(s): I10 - Essential (primary) hypertension Is this a current diagnosis for this admission?: Yes Plan: Currently all stable (5) Multiple myeloma Qualifiers: Multiple myeloma remission status: not in remission Qualified Code(s): C90.00 - Multiple myeloma not having achieved remission Is this a current diagnosis for this admission?: Yes Plan: Currently follow with oncology (6) Pseudomonal arthritis Is this a current diagnosis for this admission?: Yes Plan: Continues to IV antibiotic - Time Time Spent with patient: 15-24 minutes Level of Care: IMCU Medications reviewed and adjusted accordingly: Yes Anticipated discharge: Home with Homehealth Within: within 24 hours - Plan Summary Plan Summary: As per [facility] nephrology patients getting the Fortaz to the dialysis will give her 1 dose of the cefepime today and tomorrow discharge tomorrow We will get the chest x-ray but patient has some mild cough
--- NOTE | 2019-10-17 15:49 | RADIOLOGY REPORT (SQ) ---
EXAM DESCRIPTION: CHEST 2 VIEWS COMPLETED DATE/TIME: 10/17/2019 3:30 pm REASON FOR STUDY: cough COMPARISON: Chest films 10/10/2019, 10/09/2019, 06/04/2019, 05/04/2019 EXAM PARAMETERS: NUMBER OF VIEWS: two views TECHNIQUE: Digital Frontal and Lateral radiographic views of the chest acquired. RADIATION DOSE: NA LIMITATIONS: none FINDINGS: LUNGS AND PLEURA: No opacities, masses or pneumothorax. No pleural effusion. MEDIASTINUM AND HILAR STRUCTURES: No masses or contour abnormalities. HEART AND VASCULAR STRUCTURES: Mild cardiomegaly. Old sternotomy for CABG BONES: No acute findings. HARDWARE: None in the chest. OTHER: No other significant finding. IMPRESSION: Mild cardiomegaly. Old sternotomy for CABG. No acute findings TECHNICAL DOCUMENTATION: JOB ID: [id number] [employer]- All Rights Reserved Reading location - IP/workstation name: [email or web address]
--- NOTE | 2019-10-17 19:38 | PDOC PROGRESS REPORT ---
Subjective Progress Note for:: 10/16/19 Subjective:: Patient was seen yesterday on evening rounds. He was admitted for possible septic arthritis of the replaced right knee. Patient however denied any chest pain. He has some shortness of breath. Patient noted to have an abnormal EKG. He is noted to have cardiomegaly on chest x-ray. It is felt that patient may end up needing knee surgery. I was therefore asked to evaluate patient. 10/11/2019: Patient seen in the evening. No significant change from before. Blood cultures so far been negative. 2D echo shows mild to moderately depressed LVEF with evident to suggest CAD. Valves seems thickened but without any definite vegetations. 10/12/2019: Patient remains stable. No significant change from yesterday. Still has swollen right knee with some increased local temperature. Plan is for drainage of the right knee. 10/15/2019: Was seen postop in the evening. He is noted to be doing well. He underwent irrigation and lavage as well as some debridement of the right knee. No complications were noted. Patient currently feeling fine. 10/16/19. Patient noted to be stable. Currently receiving IV antibiotic. No complications from recent knee debridement and surgery. Reason For Visit: RIGHT PERIPROSTHTIC KNEE INFECTION Physical Exam Vital Signs: Temp Pulse Resp BP Pulse Ox 98.6 F 64 16 127/54 H 96 10/16/19 15:27 10/16/19 15:27 10/16/19 15:27 10/16/19 15:27 10/16/19 15:27 Intake & Output 10/15/19 10/16/19 10/17/19 06:59 06:59 06:59 Intake Total 1025 5444 440 Output Total 731 0249 700 Balance 484 -5831 -371 Weight 67.3 kg 66.9 kg Exam: Exam is relatively unchanged from yesterday's exam. Results Laboratory Results: 10/16/19 06:11 10/16/19 06:11 10/15/19 10/16/19 10/16/19 15:49 06:11 06:11 WBC 7.1 RBC 3.10 L Hgb 10.3 L Hct 31.4 L MCV 101 H MCH 33.2 MCHC 32.8 RDW 17.8 H Plt Count 121 L Sodium 134.5 L Potassium 4.4 Chloride 96 L Carbon Dioxide 27 Anion Gap 12 BUN 40 H D Creatinine 5.75 H Est GFR ( Amer) 11 L Glucose 134 H Calcium 8.4 Blood Type O POSITIVE Antibody Screen POSITIVE 10/10/19 14:26 Blood Blood Culture - Final NO GROWTH IN 5 DAYS Impressions: Chest X-Ray 10/10/19 00:00 IMPRESSION: Stable cardiomegaly. No other significant findings. Knee X-Ray 10/15/19 16:23 IMPRESSION: Right total knee arthroplasty. Refer to operative note for further information. Assessment & Plan - Diagnosis (1) Septic arthritis of knee, right Qualifiers: Septic arthritis organism: due to other bacteria Qualified Code(s): M00.861 - Arthritis due to other bacteria, right knee Is this a current diagnosis for this admission?: Yes (2) Coronary artery disease Qualifiers: Coronary Disease-Associated Artery/Lesion type: bypass graft Associated angina: without angina Is this a current diagnosis for this admission?: Yes (3) Diabetes mellitus type 2 in nonobese Is this a current diagnosis for this admission?: Yes (4) ESRD (end stage renal disease) on dialysis Is this a current diagnosis for this admission?: Yes (5) Hypertension Qualifiers: Hypertension type: essential hypertension Qualified Code(s): I10 - Es sential (primary) hypertension Is this a current diagnosis for this admission?: Yes - Notes Notes: Patient is generally stable from cardiac standpoint. At this point will sign off. Please reconsult if needed. Patient can follow-up with me as an outpatient. - Time Time with patient: 15-25 minutes
[2019-10-17] MEDS: CEFEPIME HCL 0.5 GM in NORMAL SALINE 25 ML IV SCH (22:20)
[2019-10-18] MEDS ORDERED: CEFEPIME 1 GM/D5W RTU 1 GM/50 ML RTUPB IV PRN (05:00)
[2019-10-18] MEDS: PANTOPRAZOLE SODIUM 40 MG TABLET.DR PO SCH (05:20)
[2019-10-18 05:57] LABS: HEMATOCRIT 26.9 % (37.9-51.0); HEMOGLOBIN 8.9 g/dL (13.5-17.0); MEAN CORPUSCULAR HEMOGLOBIN 33.2 pg (27.0-33.4); MEAN CORPUSCULAR HGB CONC 33.2 g/dL (32.0-36.0); MEAN CORPUSCULAR VOLUME 100 fl (80-97); PLATELET COUNT 132 10^3/uL (150-450); RED BLOOD COUNT 2.69 10^6/uL (4.35-5.55); RED CELL DISTRIBUTION WIDTH 17.6 % (11.5-14.0); WHITE BLOOD COUNT 6.7 10^3/uL (4.0-10.5)
--- NOTE | 2019-10-18 07:53 | PDOC DISCHARGE SUMMARY ---
Impression - Admit/DC Date/PCP Admission Date/Primary Care Provider: 10/10/19 11:39 MIGUEL FRAZIER MD Discharge Date: 10/18/19 - Discharge Diagnosis (1) Septic arthritis of knee, right Is this a current diagnosis for this admission?: Yes (2) Coronary artery disease Is this a current diagnosis for this admission?: Yes (3) ESRD (end stage renal disease) on dialysis Is this a current diagnosis for this admission?: Yes (4) Hypertension Is this a current diagnosis for this admission?: Yes (5) Multiple myeloma Is this a current diagnosis for this admission?: Yes (6) Pseudomonal arthritis Is this a current diagnosis for this admission?: Yes - Additional Information Resuscitation Status: Full Code Discharge Diet: Regular Discharge Activity: Activity As Tolerated Referrals: MIGUEL FRAZIER MD [Primary Care Provider] - 10/29/19 9:15 am (f/u with id at [facility] ) KAJAL DODGE MD [ACTIVE STAFF] - 10/30/19 10:00 am Home Medications: Atorvastatin Calcium 80 mg PO DAILY 02/02/16 Finasteride [Proscar 5 mg Tablet] 5 mg PO DAILY 02/02/16 Amlodipine Besylate 5 mg PO DAILY 10/31/17 Metoprolol Succinate [Toprol Xl] 25 mg PO DAILY 10/31/17 Omeprazole 40 mg PO DAILYP PRN 10/31/17 Calcium Acetate [Phoslo 667 mg Capsule] 1,334 mg PO MEALS 10/10/19 Diclofenac Sodium 4 gm TOP QIDP PRN 10/10/19 Furosemide [Lasix 20 mg Tablet] 20 mg PO DAILY 10/10/19 Lenalidomide [Revlimid] 5 mg PO Q2D 10/10/19 Vit B Comp No.3/Folic/C/Biotin [Sarah-Roberth Rx Tablet] 1 each PO DAILY 10/10/19 History of Present Illiness History of Present Illness: UGO ROY is a 84 year old male his is a 84-year-old male with a history of multiple myeloma history of end- stage renal disease on hemodialysis recently had a Port-A-Cath removed due to the infections was grew up the Pseudomonas and also complaining of the left knee pain and effusion and Dr. Dodge aspirated and grow Pseudomonas Patients have a Pseudomonas on the Port-A-Cath site Pseudomonas on the right knee which is a prosthetic device surgery sent to the emergency department yesterday for further evaluations In the ER patient does not look septic in ER physicians discussed with the nephrology Dr. Dudley and most likely suggest that get the IV antibiotic while patient is not septic Dr. Dalal a general surgery called me last night and suggest that the patient's might need to be admitted because patient have a Pseudomonas on the both side and the left prosthetic device in the I think is a part of her problems to best way to treat the patient's to be admitting in the hospital Discussed with the nephrology this morning and she suggest that that is okay to admit the patient's in the bed available in the hospital for the dialysis Discussed with the oncology At this point patient is brought to my office today patient's denied any complaints no fever no chills Admit the patient is directly in the hospital for IV antibiotic as per discussed with the nephrology start with the cefepime 1 g and she will give a gentamicin for the dialysis Discussed with the Dr. Dodge he will evaluate the patient's Discussed with the Dr. José the patient's cardiology he will see the patient Hospital Course Hospital Course: This 84-year-old male with a significant multiple medical problems recently have a Pseudomonas in the right knee aspirations and also recently remove the Port-A-Cath consistent with the Pseudomonas with the artificial joint decided to admit in the hospital for further evaluations Patient was started on IV antibiotic as per infectious disease recommendations and patient seen by the cardiology echocardiogram done with no vegetations and no other acute abnormalities patient also seen by the oncology for multiple myeloma And anemia was all stable. Patient also dialysis patient underwent further dialysis by the Patient underwent for incision and drainage and occluding the prostatic joints Patient all culture is negative As per Ortho recommendations patient is a 6-week IV antibiotic Patient seen by the infectious disease from [facility] suggest the Fortaz through the dialysis for 6-week and possible Cipro after that patient is otherwise remain afebrile Patient's denied any chest pain no short of breath Patient's knee wound looks all stable Patient is walking the hallway without any problems Patient received a 1 dose of antibiotic today before the discharge as per discussed with the nephrology and see already scheduled to the dialysis on Tuesday the 6-week antibiotic Patient is discharged home with the stable conditions discussed with the patient's family regarding the patient's current conditions Patient have a multiple follow-up as above Physical Exam Vital Signs: Temp Pulse Resp BP Pulse Ox 98.7 F 61 12 107/50 L 99 10/18/19 04:28 10/18/19 04:28 10/18/19 04:28 10/18/19 04:28 10/18/19 04:28 Intake & Output 10/17/19 10/18/19 10/19/19 06:59 06:59 06:59 Intake Total 465 730 Output Total 1050 2100 Balance -585 -1370 Weight 68 kg General appearance: PRESENT: no acute distress, well-developed, well-nourished Head exam: PRESENT: atraumatic, normocephalic Eye exam: PRESENT: conjunctiva pink, EOMI, PERRLA. ABSENT: scleral icterus Ear exam: PRESENT: normal external ear exam Mouth exam: PRESENT: moist, tongue midline Neck exam: ABSENT: carotid bruit, JVD, lymphadenopathy, thyromegaly Respiratory exam: PRESENT: clear to auscultation lucien. ABSENT: rales, rhonchi, wheezes Cardiovascular exam: PRESENT: RRR. ABSENT: diastolic murmur, rubs, systolic murmur Pulses: PRESENT: normal dorsalis pedis pul Vascular exam: PRESENT: normal capillary refill GI/Abdominal exam: PRESENT: normal bowel sounds, soft. ABSENT: distended, guarding, mass, organolmegaly, rebound, tenderness Rectal exam: PRESENT: deferred Extremities exam: PRESENT: full ROM. ABSENT: calf tenderness, clubbing, pedal edema Musculoskeletal exam: PRESENT: ambulatory Neurological exam: PRESENT: alert, awake, oriented to person, oriented to place, oriented to time, oriented to situation, CN II-XII grossly intact. ABSENT: motor sensory deficit Psychiatric exam: PRESENT: appropriate affect, normal mood. ABSENT: homicidal ideation, suicidal ideation Skin exam: PRESENT: dry, intact, warm. ABSENT: cyanosis, rash Results Laboratory Results: WBC 6.7 10^3/uL (4.0-10.5) 10/18/19 05:13 RBC 2.69 10^6/uL (4.35-5.55) L 10/18/19 05:13 Hgb 8.9 g/dL (13.5-17.0) L 10/18/19 05:13 Hct 26.9 % (37.9-51.0) L 10/18/19 05:13 MCV 100 fl (80-97) H 10/18/19 05:13 MCH 33.2 pg (27.0-33.4) 10/18/19 05:13 MCHC 33.2 g/dL (32.0-36.0) 10/18/19 05:13 RDW 17.6 % (11.5-14.0) H 10/18/19 05:13 Plt Count 132 10^3/uL (150-450) L 10/18/19 05:13 Lymph % (Auto) 30.9 % (13-45) 10/15/19 06:14 [place] % (Auto) 15.0 % (3-13) H 10/15/19 06:14 Eos % (Auto) 6.2 % (0-6) H 10/15/19 06:14 Baso % (Auto) 1.5 % (0-2) 10/15/19 06:14 Absolute Neuts (auto) 3.2 10^3/uL (1.7-8.2) 10/15/19 06:14 Absolute Lymphs (auto) 2.1 10^3/uL (0.5-4.7) 10/15/19 06:14 Absolute Monos (auto) 1.0 10^3/uL (0.1-1.4) 10/15/19 06:14 Absolute Eos (auto) 0.4 10^3/uL (0.0-0.6) 10/15/19 06:14 Absolute Basos (auto) 0.1 10^3/uL (0.0-0.2) 10/15/19 06:14 Seg Neutrophils % 46.4 % (42-78) 10/15/19 06:14 ESR 24 mm/hr (0-20) H 10/12/19 13:37 PT 14.5 SEC (11.4-15.4) 10/10/19 13:12 INR 1.12 10/10/19 13:12 APTT 30.5 SEC (23.5-35.8) 10/11/19 05:30 Sodium 130.9 mmol/L (137-145) L 10/17/19 05:19 Potassium 4.7 mmol/L (3.6-5.0) 10/17/19 05:19 Chloride 93 mmol/L (98-107) L 10/17/19 05:19 Carbon Dioxide 27 mmol/L (22-30) 10/17/19 05:19 Anion Gap 11 (5-19) 10/17/19 05:19 BUN 51 mg/dL (7-20) H 10/17/19 05:19 Creatinine 7.47 mg/dL (0.52-1.25) H 10/17/19 05:19 Est GFR ( Amer) 8 (>60) L 10/17/19 05:19 Est GFR (MDRD) Non-Af 7 (>60) L 10/17/19 05:19 Glucose 108 mg/dL (75-110) 10/17/19 05:19 POC Glucose 109 mg/dL (70-110) 10/15/19 17:24 Lactic Acid 1.6 mmol/L (0.7-2.1) 10/10/19 14:26 Calcium 8.2 mg/dL (8.4-10.2) L 10/17/19 05:19 Magnesium 1.4 mg/dL (1.6-2.3) L 10/11/19 05:30 C-Reactive Protein 12.4 mg/L (<10.0) H 10/12/19 13:37 Triglycerides 95 mg/dL (<150) 10/11/19 05:30 Cholesterol 102.56 mg/dL (0-200) 10/11/19 05:30 LDL Cholesterol Direct 45 mg/dL (<100) 10/11/19 05:30 VLDL Cholesterol 19.0 mg/dL (10-31) 10/11/19 05:30 HDL Cholesterol 35 mg/dL (>40) L 10/11/19 05:30 Urine Color YELLOW 10/10/19 15:50 Urine Appearance CLEAR 10/10/19 15:50 Urine pH 8.0 (5.0-9.0) 10/10/19 15:50 Ur Specific [place] 1.009 10/10/19 15:50 Urine Protein 30 mg/dL (NEGATIVE) H 10/10/19 15:50 Urine Glucose (UA) 150 mg/dL (NEGATIVE) H 10/10/19 15:50 Urine Ketones NEGATIVE mg/dL (NEGATIVE) 10/10/19 15:50 Urine Blood NEGATIVE (NEGATIVE) 10/10/19 15:50 Urine Nitrite NEGATIVE (NEGATIVE) 10/10/19 15:50 Urine Bilirubin NEGATIVE (NEGATIVE) 10/10/19 15:50 Urine Urobilinogen NEGATIVE mg/dL (<2.0) 10/10/19 15:50 Ur Leukocyte Esterase NEGATIVE (NEGATIVE) 10/10/19 15:50 Urine WBC (Auto) 0 /HPF 10/10/19 15:50 Urine RBC (Auto) 0 /HPF 10/10/19 15:50 Urine Mucus (Auto) RARE /LPF 10/10/19 15:50 Urine Ascorbic Acid NEGATIVE (NEGATIVE) 10/10/19 15:50 Time Trough Drawn 0530 10/11/19 05:30 Gentamicin Trough 2.0 ug/mL (<2.0) 10/11/19 05:30 Blood Type O POSITIVE 10/15/19 15:49 Antibody Screen POSITIVE 10/15/19 15:49 Antibody Identification [id number] (DUE TO DARATUMUMAB) 10/15/19 15:49 Direct Antiglob Test NEGATIVE 10/15/19 15:49 Impressions: Chest X-Ray 10/10/19 00:00 IMPRESSION: Stable cardiomegaly. No other significant findings. Knee X-Ray 10/15/19 16:23 IMPRESSION: Right total knee arthroplasty. Refer to operative note for further information. Chest X-Ray 10/17/19 00:00 IMPRESSION: Mild cardiomegaly. Old sternotomy for CABG. No acute findings Plan Time Spent: Greater than 30 Minutes - Follow with the Dr. Dodge follow with infectious disease at [place] Follow with the oncology as per schedule Stroke Is this a Stroke Patient?: No Acute Heart Failure - Is this a Heart Failure Patient?: No
[2019-10-18] MEDS: ONDANSETRON 4 MG TAB.RAPDIS PO PRN (08:12)
[2019-10-18] MEDS: CALCIUM ACETATE 667 MG CAPSULE PO SCH ×2 (08:12→12:54)
--- NOTE | 2019-10-18 08:54 | PDOC PROGRESS REPORT ---
Subjective Progress Note for:: 10/18/19 Subjective:: Patient is going to be discharged today Reason For Visit: RIGHT PERIPROSTHTIC KNEE INFECTION Physical Exam Vital Signs: Temp Pulse Resp BP Pulse Ox 98.6 F 62 16 124/55 L 100 10/18/19 07:53 10/18/19 07:53 10/18/19 07:53 10/18/19 07:53 10/18/19 07:53 Intake & Output 10/17/19 10/18/19 10/19/19 06:59 06:59 06:59 Intake Total 465 730 Output Total 1050 2100 Balance -585 -1370 Weight 68 kg General appearance: PRESENT: no acute distress, well-developed, well-nourished Head exam: PRESENT: atraumatic, normocephalic Eye exam: PRESENT: conjunctiva pink, EOMI, PERRLA. ABSENT: scleral icterus Ear exam: PRESENT: normal external ear exam Mouth exam: PRESENT: moist, tongue midline Neck exam: ABSENT: carotid bruit, JVD, lymphadenopathy, thyromegaly Respiratory exam: PRESENT: clear to auscultation lucien. ABSENT: rales, rhonchi, wheezes Cardiovascular exam: PRESENT: RRR. ABSENT: diastolic murmur, rubs, systolic murmur Pulses: PRESENT: normal dorsalis pedis pul Vascular exam: PRESENT: normal capillary refill GI/Abdominal exam: PRESENT: normal bowel sounds, soft. ABSENT: distended, guarding, mass, organolmegaly, rebound, tenderness Rectal exam: PRESENT: deferred Extremities exam: PRESENT: full ROM. ABSENT: calf tenderness, clubbing, pedal edema Neurological exam: PRESENT: alert, awake, oriented to person, oriented to place, oriented to time, oriented to situation, CN II-XII grossly intact. ABSENT: motor sensory deficit Psychiatric exam: PRESENT: appropriate affect, normal mood. ABSENT: homicidal ideation, suicidal ideation Skin exam: PRESENT: dry, intact, warm. ABSENT: cyanosis, rash Results Laboratory Results: 10/18/19 05:13 10/17/19 05:19 10/18/19 05:13 WBC 6.7 RBC 2.69 L Hgb 8.9 L Hct 26.9 L MCV 100 H MCH 33.2 MCHC 33.2 RDW 17.6 H Plt Count 132 L Impressions: Knee X-Ray 10/15/19 16:23 IMPRESSION: Right total knee arthroplasty. Refer to operative note for further information. Chest X-Ray 10/17/19 00:00 IMPRESSION: Mild cardiomegaly. Old sternotomy for CABG. No acute findings Assessment & Plan - Diagnosis (1) Septic arthritis of knee, right Qualifiers: Septic arthritis organism: due to other bacteria Qualified Code(s): M00.861 - Arthritis due to other bacteria, right knee Is this a current diagnosis for this admission?: Yes Plan: Plan to discharge with 6 weeks of antibiotics then suppressive Cipro therapy (2) Multiple myeloma Qualifiers: Multiple myeloma remission status: not in remission Qualified Code(s): C90.00 - Multiple myeloma not having achieved remission Is this a current diagnosis for this admission?: Yes Plan: We will hold his oral Revlimid and dexamethasone until he sees us back in 2 weeks and will make a decision on when to restart (3) Anemia Qualifiers: Anemia type: due to chronic kidney disease 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
[2019-10-18] MEDS: DOCUSATE SODIUM 100 MG CAPSULE PO SCH (10:49)
[2019-10-18] MEDS: METOPROLOL SUCCINATE 25 MG TAB.SR.24H PO SCH (10:49)
[2019-10-18] MEDS: FUROSEMIDE 20 MG TABLET PO SCH (10:49)
[2019-10-18] MEDS: AMLODIPINE BESYLATE 5 MG TABLET PO SCH (10:49)
[2019-10-18] MEDS: FINASTERIDE 5 MG TABLET PO SCH (10:49)
[2019-10-18] MEDS: ATORVASTATIN CALCIUM 80 MG TABLET PO SCH (10:50)
[2019-10-18] MEDS: PRENATAL VITAMIN W DHA CAPSULE PO SCH (10:50)
[2019-10-18] MEDS: VITAMIN B COMPLEX TABLET PO SCH (10:50)
[2019-10-18] MEDS: SENNOSIDES/DOCUSATE 8.6-50 MG 1 EACH TABLET PO SCH (10:50)
[2019-10-18] MEDS ORDERED: CEFEPIME HCL 0.5 GM in NORMAL SALINE 25 ML IV PRN (11:16)
[2019-10-18 12:43] VITALS: BP 137/62
== END 2019-10-18 13:22 | disposition home health service (06) | DRG 485 ==
LOC: 3W 11:39
PROVIDERS: ADMIT Family Medicine; ATTEND Family Medicine
PROC: 5A1D70Z Performance of Urinary Filtration, Intermittent, Less than 6 Hours Per Day (ICD-10-PCS; 2019-10-12)
PROC: 0SPC09Z Removal of Liner from Right Knee Joint, Open Approach (ICD-10-PCS; 2019-10-15)
PROC: 0SUV09Z Supplement Right Knee Joint, Tibial Surface with Liner, Open Approach (ICD-10-PCS; 2019-10-15)
PROC: 0SBC0ZZ Excision of Right Knee Joint, Open Approach (ICD-10-PCS; principal; 2019-10-15 15:00)
DX: M00.861 Arthritis due to other bacteria, right knee (principal); N18.6 End stage renal disease; C90.00 Multiple myeloma not having achieved remission; C41.9 Malignant neoplasm of bone and articular cartilage, unspecified; I12.0 Hypertensive chronic kidney disease with stage 5 chronic kidney disease or end stage renal disease; B96.5 Pseudomonas (aeruginosa) (mallei) (pseudomallei) as the cause of diseases classified elsewhere; E78.5 Hyperlipidemia, unspecified; D63.1 Anemia in chronic kidney disease; I25.10 Atherosclerotic heart disease of native coronary artery without angina pectoris; I25.2 Old myocardial infarction; Z96.653 Presence of artificial knee joint, bilateral; Z95.1 Presence of aortocoronary bypass graft; Z99.2 Dependence on renal dialysis
CPT/HCPCS: 01400; 36415; 71045; 71046; 80048; 80053; 80061; 80170; 81001; 82962; 83605; 83735; 85025; 85027; 85610; 85652; 85730; 86140; 86850; 86870; 86880; 86900; 86901; 87040; 87070; 87075; 87077; 87086; 87186; 87205; 93005; 93010; 93306; 94799; J0131; J0330; J0692; J2250; J2704; J3010; J3370; J3490; J7050; J7060; J7120; Q5105; S0119

== ENCOUNTER → 2019-10-24 | Outpatient (CLI) | payer MEDICARE, OTHER ==
[2019-10-24 12:52] LABS: APPEARANCE,URINE CLEAR; BILIRUBIN,URINE NEGATIVE (NEGATIVE); COLOR,URINE YELLOW; GLUCOSE, URINE 50 mg/dL (NEGATIVE); KETONES,URINE NEGATIVE (NEGATIVE); LEUKOCYTE ESTERASE,URINE NEGATIVE (NEGATIVE); NITRITE,URINE NEGATIVE (NEGATIVE); PROTEIN,URINE 100 mg/dL (NEGATIVE); URINE SPECIFIC GRAVITY 1.009; UROBILINOGEN,URINE NEGATIVE mg/dL (<2.0)
== END ==
LOC: LAB 12:33
PROVIDERS: ATTEND Internal Medicine Nephrology
DX: R30.0 Dysuria (principal); N18.6 End stage renal disease
CPT/HCPCS: 81001